=== PATIENT | male | born 1945 | race Caucasian/White ===

== ENCOUNTER 2024-01-02 14:53 | Emergency (ER) | payer MEDICARE, OTHER, SELFPAY ==
[2024-01-02 15:04] VITALS: BP 122/77; PULSE 77; TEMP 36.7; O2SAT 98; BMI 22.8
--- NOTE | 2024-01-02 15:08 | XR_ITS ---
[address] [address] Patient Name: THONY BRYANT MRN: [id number] date: 1945 Sex: M Assigned Patient Location: ER Current Patient Location: ER Accession/Order Number: [id number] Exam Date: 01/02/2024 15:37 Report Date: 01/02/2024 16:10 At the request of: ANTOINETTE PAUL Procedure: XR shoulder RT min 2V IMAGES REVIEWED: XR shoulder RT min 2V COMPARISON: None available. CLINICAL INDICATION: pain FINDINGS/IMPRESSION: No radiographic evidence of acute osseous abnormality of the right shoulder. Mild-moderate degenerative change. Electronically authenticated by: KAILA HERNANDEZ Date: 01/02/2024 16:10
--- NOTE | 2024-01-02 16:23 | ED.UPPEXIN1 ---
Documented by User: Cat Arriagaey 01/02/24 16:31 HPI HPI - Extremity Injury (Upper) General Chief Complaint: Extremity Injury, Upper Stated Complaint: FELL RIGHT SHOULDER PAIN Time Seen by Provider: 01/02/24 15:02 Source: patient and family Mode of arrival: walk-in Limitations: no limitations History of Present Illness HPI narrative: 78-year-old male presents with chief complaint of right shoulder injury. Patient tripped at home. pt has a history of Parkinson's disease and trips frequently. He denies any other injuries or pain. He has no headache or neck pain.Side and states that he laid on the floor until his son came to the room to pick him up. Patient is alert and oriented. He complains only of right shoulder pain. Difficulty moving his shoulder. There is no obvious Patient. Suspected rotator cuff or sprain noted. Extremities neurovascular intact Related Data Home Medications ?Medication ?Instructions ?Recorded ?Confirmed amantadine HCl 100 mg tablet 100 mg PO BID 01/02/24 01/02/24 atorvastatin 40 mg tablet 40 mg PO DAILY 01/02/24 01/02/24 carbidopa ER 50 mg-levodopa 200 mg 1.5 tab PO BID 01/02/24 01/02/24 tablet,extended release selegiline HCl 5 mg tablet 5 mg PO BID 01/02/24 01/02/24 Allergies Allergy/AdvReac Type Severity Reaction Status Date / Time No Known Drug Allergies Allergy Verified 01/02/24 15:04 Opioid HPI Opioid Management Most Recent Pain and Opioid Data: No Data to Display Review of Systems ROS Narrative All Systems are negative except as noted/marked.All systems reviewed and otherwise negative Exam Narrative Exam Narrative: All Systems are negative except as noted/marked.All systems reviewed and otherwise negative Nurses note and vital signs reviewed and patient is not hypoxic. General: The patient appears well and in no apparent distress. Patient is resting comfortably on cart. Skin: Warm, dry, no pallor noted. There is no rash noted. Head: Normocephalic, atraumatic Eye: Normal conjunctiva, no drainage, EOMI. PERRL Ears, Nose, Mouth, and Throat: oral mucosa is moist. Nares patent. Mouth without vesicles. Ear canals patent. Tm's without Erythema Cardiovascular: Regular Rate and Rhythm Musculoskeletal right shoulder tenderness with abrasion to the lateral aspect of humerus . Inability elevating or rotating due to pain. No obvious dislocation. Extremities neurovascular intact. remainder of extremities show no injury, pt able to ambulate Neurological: A&O x4, normal speech Psychiatric: Cooperative Constitutional Vital Signs, click to edit/add: Last Vital Signs Temp 98.1 F 01/02/24 15:04 Pulse 78 01/02/24 16:34 Resp 18 01/02/24 16:34 BP 126/77 01/02/24 16:34 Pulse Ox 98 01/02/24 16:34 O2 Del Method Room Air 01/02/24 15:04 Course Vital Signs Vital signs: Vital Signs Temperature 98.1 F 01/02/24 15:04 Pulse Rate 77 01/02/24 15:04 Respiratory Rate 18 01/02/24 15:04 Blood Pressure 122/77 01/02/24 15:04 Pulse Oximetry 98 01/02/24 15:04 Oxygen Delivery Method Room Air 01/02/24 15:04 Temperature 98.1 F 01/02/24 15:04 Pulse Rate 78 01/02/24 16:34 Respiratory Rate 18 01/02/24 16:34 Blood Pressure 126/77 01/02/24 16:34 Pulse Oximetry 98 01/02/24 16:34 Oxygen Delivery Method Room Air 01/02/24 15:04 MDM - Extremity Injury (Upper) MDM Narrative Medical decision making narrative: 78-year-old male presents with chief complaint of shoulder injury. He tripped while in his home today. He trips often due to a history of Parkinson's disease. Injury was not witnessed but son was there to pick him up. Patient has right shoulder injury x-ray showed negative. Right sling was placed on the shoulder. Patient will follow-up with Dr. davey office on Thursday. Patient denied the need for pain medication. at bedside and agrees with plan of care Differential Diagnosis Differential diagnosis: Likely fracture of wrist and fracture of humerus Medical Records Attestation: I reviewed the patient's medical records. Imaging Data shoulder: Attestation: I have reviewed the pertinent imaging results. Radiologist's impression: : None available. CLINICAL INDICATION: pain FINDINGS/IMPRESSION: No radiographic evidence of acute osseous abnormality of the right shoulder. Mild-moderate degenerative change. Electronically authenticated by: KAILA HERNANDEZ Date: 01/02/2024 16:10 Discharge Plan Discharge Stand Alone Forms: Portal Instructions Chief Complaint: Extremity Injury, Upper Clinical Impression: Shoulder sprain Patient Disposition: Home, Self-Care Time of Disposition Decision: 16:21 Condition: Good Prescriptions / Home Meds: No Action amantadine HCl 100 mg tablet 100 mg PO BID atorvastatin 40 mg tablet 40 mg PO DAILY carbidopa-levodopa 50-200 mg tablet extended release 1.5 tab PO BID selegiline HCl 5 mg tablet 5 mg PO BID Print Language: Kyrgyz Instructions: Shoulder Sprain (ED), P.R.I.C.E. Treatment (ED) Referrals: GAMAL REYES [Primary Care Provider] - 1 week David Howard MD [Physician] - 1 week Discharge Date/Time: 01/02/24 16:35 Documented by User: Jabier Wiggins MD 01/02/24 21:23 HPI HPI - Extremity Injury (Upper) General Chief Complaint: Extremity Injury, Upper Stated Complaint: FELL RIGHT SHOULDER PAIN Time Seen by Provider: 01/02/24 15:02 Related Data Home Medications ?Medication ?Instructions ?Recorded ?Confirmed amantadine HCl 100 mg tablet 100 mg PO BID 01/02/24 01/02/24 atorvastatin 40 mg tablet 40 mg PO DAILY 01/02/24 01/02/24 carbidopa ER 50 mg-levodopa 200 mg 1.5 tab PO BID 01/02/24 01/02/24 tablet,extended release selegiline HCl 5 mg tablet 5 mg PO BID 01/02/24 01/02/24 Allergies Allergy/AdvReac Type Severity Reaction Status Date / Time No Known Drug Allergies Allergy Verified 01/02/24 15:04 Opioid HPI Opioid Management Most Recent Pain and Opioid Data: No Data to Display Exam Constitutional Vital Signs, click to edit/add: Last Vital Signs Temp 98.1 F 01/02/24 15:04 Pulse 78 01/02/24 16:34 Resp 18 01/02/24 16:34 BP 126/77 01/02/24 16:34 Pulse Ox 98 01/02/24 16:34 O2 Del Method Room Air 01/02/24 15:04 Course Vital Signs Vital signs: Vital Signs Temperature 98.1 F 01/02/24 15:04 Pulse Rate 77 01/02/24 15:04 Respiratory Rate 18 01/02/24 15:04 Blood Pressure 122/77 01/02/24 15:04 Pulse Oximetry 98 01/02/24 15:04 Oxygen Delivery Method Room Air 01/02/24 15:04 Temperature 98.1 F 01/02/24 15:04 Pulse Rate 78 01/02/24 16:34 Respiratory Rate 18 01/02/24 16:34 Blood Pressure 126/77 01/02/24 16:34 Pulse Oximetry 98 01/02/24 16:34 Oxygen Delivery Method Room Air 01/02/24 15:04 MDM - Extremity Injury (Upper) MDM Narrative Medical decision making narrative: 78-year-old male presents with chief complaint of shoulder injury. He tripped while in his home today. He trips often due to a history of Parkinson's disease. Injury was not witnessed but son was there to pick him up. Patient has right shoulder injury x-ray showed negative. Right sling was placed on the shoulder. Patient will follow-up with Dr. davey office on Thursday. Patient denied the need for pain medication. at bedside and agrees with plan of care I, Dr Wiggins, have reviewed the above progress note and course of action in the ER; agree with the above. I have gone over history and physical, and discussed disposition and treatment plan with the patient. Discharge Plan Discharge Stand Alone Forms: Portal Instructions Chief Complaint: Extremity Injury, Upper Clinical Impression: Shoulder sprain Patient Disposition: Home, Self-Care Time of Disposition Decision: 16:21 Condition: Good Prescriptions / Home Meds: No Action amantadine HCl 100 mg tablet 100 mg PO BID atorvastatin 40 mg tablet 40 mg PO DAILY carbidopa-levodopa 50-200 mg tablet extended release 1.5 tab PO BID selegiline HCl 5 mg tablet 5 mg PO BID Print Language: Kyrgyz Instructions: Shoulder Sprain (ED), P.R.I.C.E. Treatment (ED) Referrals: GAMAL REYES [Primary Care Provider] - 1 week David Howard MD [Physician] - 1 week Discharge Date/Time: 01/02/24 16:35
[2024-01-02 16:34] VITALS: BP 126/77; PULSE 78; O2SAT 98
== END 2024-01-02 16:35 | disposition home or self-care (01) ==
PROVIDERS: Emergency Provider Emergency Medicine; PCP Family Medicine
DX: S43.401A Unspecified sprain of right shoulder joint, initial encounter (principal); G20.A1 Parkinson's disease without dyskinesia, without mention of fluctuations; Z79.899 Other long term (current) drug therapy; W10.9XXA Fall (on) (from) unspecified stairs and steps, initial encounter
CPT/HCPCS: 73030; 99283

== ENCOUNTER 2024-01-22 11:34 | Outpatient (OUT) | payer OTHER, SELFPAY ==
[2024-01-22 12:09] LABS: Erythrocyte Sedimentation Rate 27 mm/hr (<=20)
[2024-01-22 12:25] LABS: Thyroid Stimulating Hormone 2.395 uIU/mL (0.358-3.740)
[2024-01-22 15:12] LABS: C. Difficile PCR NEGATIVE (NEGATIVE)
[2024-01-23 06:09] LABS: HIV Ab/p24 Ag Screen Non Reactive (Non Reactive)
[2024-01-25 15:31] LABS: Deamidated Gliadin Abs, IgA 4 units (0-19); Deamidated Gliadin Abs, IgG 2 units (0-19); Endomysial Antibody IgA Negative (Negative); Immunoglobulin A, Qn, Serum 208 mg/dL (61-437); t-Transglutaminase (tTG) IgA <2 U/mL (0-3); t-Transglutaminase (tTG) IgG <2 U/mL (0-5)
[2024-01-26 17:11] LABS: Ova + Parasite Exam Final report (.)
== END 2024-01-22 11:35 | disposition home or self-care (01) ==
LOC: LAB 11:35
PROVIDERS: PCP Family Medicine; Visit Provider Internal Medicine
DX: R63.4 Abnormal weight loss (principal); K92.1 Melena; R19.7 Diarrhea, unspecified
CPT/HCPCS: 36415; 82656; 82784; 83993; 84443; 85652; 86231; 86258; 86364; 87045; 87046; 87177; 87209; 87389; 87427; 87493

== ENCOUNTER 2024-01-23 08:46 | Outpatient (OUT) | payer OTHER, SELFPAY ==
--- NOTE | 2024-01-23 | CT_ITS ---
[address] [address] Patient Name: THONY BRYANT MRN: [id number] date: 1945 Sex: M Assigned Patient Location: LAB Current Patient Location: Accession/Order Number: [id number] Exam Date: 01/23/2024 10:27 Report Date: 01/24/2024 09:49 At the request of: SIDRA LEON Procedure: CT abdomen pelvis w con CT ABDOMEN AND PELVIS WITH CONTRAST: INDICATION: Weight Loss. Gastroenteritis K92.1 R63.4 K52.9. COMPARISON: None. TECHNIQUE: Helical CT images of the abdomen and pelvis were obtained after the administration of intravenous contrast. Dose reduction techniques were achieved by using automated exposure control and/or adjustment of mA and/or kV according to patient size and/or use of iterative reconstruction technique. FINDINGS: LOWER CHEST: The visualized lung bases are clear. Small hiatal hernia with contrast in the distal esophagus suggesting gastroesophageal reflux. LIVER: There is mild diffuse fatty infiltration of the liver. GALLBLADDER AND BILIARY SYSTEM: The gallbladder is contracted. There is no intra or extrahepatic biliary ductal dilatation. SPLEEN: Unremarkable. PANCREAS: Unremarkable. ADRENAL GLANDS: Unremarkable. KIDNEYS AND URETERS: The kidneys enhance symmetrically. There is no hydronephrosis. Punctate nonobstructing calculus in the upper pole the right kidney. No ureteral calculus or perinephric stranding. BLADDER: Under distended, but grossly unremarkable. GASTROINTESTINAL TRACT: Moderate to large amount of stool in the colon. No evidence of bowel obstruction. Normal appendix. VASCULATURE: Atherosclerotic calcification of the abdominal aorta without aneurysmal dilatation. RETROPERITONEUM AND LYMPH NODES: No lymphadenopathy or mass. PERITONEUM/MESENTERY: No abdominal ascites. No free air. PELVIS: No pelvic ascites or lymphadenopathy. The prostate is enlarged. Small fat-containing left inguinal hernia. BODY WALL: Unremarkable. BONES: Multilevel degenerative changes of the lumbar spine. Grade 1 anterolisthesis of L4 and L5 as well as L3 on L4. There is a sclerotic lesion in the L2 vertebral body measuring 1.6 cm which is indeterminate. CT/CT abdomen pelvis w con IMPRESSION: 1. Indeterminate 1.6 cm sclerotic lesion in the L2 vertebral body. Consider further evaluation with bone scan. 2. Constipation. 3. Gastroesophageal reflux. 4. Enlarged prostate. 5. Punctate nonobstructing calculus in the right kidney. 6. Fatty liver. Electronically authenticated by: CHRISTOPHER BENTLEY Date: 01/24/2024 09:49
--- OUTSIDE RECORDS SUMMARY | 2024-01-23 08:48 | XMS_ITS | CCD ---
Author Organization [facility] Care Team Providers Care Sink Maker Name Role Phone ESHA ZEPEDA Admitting Unavailable CHASIDYS, ESHA Attending Unavailable LUANNILLIS, ESHA Consulting Unavailable HOUSE, ESA Primary Care Unavailable NIKI, ERASTO Consulting Unavailable HOUSE, ESA Primary Care Unavailable HAY, YINKA Admitting Unavailable HAY, YINKA Attending Unavailable LUCINA, DAVID Devries Consulting Unavailable HUMPHREY, TELMA Consulting Unavailable HOUSE, ESA Admitting Unavailable HOUSE, ESA Attending Unavailable HOUSE, ESA Primary Care Unavailable HOUSE, ESA Admitting Unavailable HOUSE, ESA Attending Unavailable Isaac Reyes Unavailable Unavailable Unavailable Mesha Joe Unavailable Dr. Mata Barrientos Attending Daina vailable Iliana, Dr. Mata Joshi Referring Daina vailable Isaac Reyes Primary Care UnavailIsaac Rodríguez MD Primary Care Provider MATA BARRIENTOS Attending Unavailable ISAAC REYES Primary Care UnavailIsaac Rodríguez MD Primary Care Provider COLLIN HENRY Attending Unavailable MICHELLE TO Referring Unavailable ISAAC REYES Attending Unavailable ISAAC REYES Attending Unavailable ISAAC REYES Attending Unavailable Medications Current Medications Medication Drug Class(es) Dates Sig (Normalized) Sig (Original) amantadine hydrochloride 100 mg oral tablet (10 sources) Influenza A M2 Protein Inhibitor Start: 02-09-2023 take 1.5 tablets by mouth in the morning amantadine (Symmetrel) 100 MG tablet Indications: Parkinson's disease 1.5 tablets orally upon arising in the AM and then again in 6 to 8 hours 180 tablet 1 02/09/2023 Active Start: 02-09-2023 take 1 tablet by isela twice daily amantadine (Symmetrel) 100 mg tablet Take 1 tablet (100 mg) by mouth 2 times a day. 0 02/09/2023 Active take 1 tablet by isela twice daily Amantadine HCl - 100 MG Oral Tablet Take 1 tablet twice daily Quantity: 0 Refills: 0 Ordered: 23-Jul-2022 DO Active take 1 tablet by isela once daily Amantadine HCl - 100 MG Oral Tablet Take 1 tablet daily Quantity: 0 Refills: 0 Ordered: 24-Jul-2021 DO Active amoxicillin 875 mg / clavulanate 125 mg oral tablet (1 source) Penicillin-class Antibacterial Start: 05-02-2022 take 1 tablet by mouth every twelve hours Amoxicillin-Pot Clavulanate 875-125 MG 1 tablet Orally every 12 hrs for 10 day(s) Apr, Active aspirin 81 mg delayed release oral tablet (10 sources) Platelet Aggregation Inhibitor, Nonsteroidal Anti-inflammatory Drug take 1 tablet by mouth every week aspirin 81 MG EC tablet Take 81 mg by mouth. 1 tablet orally once a week for 30 days 0 Active take 1 tablet by mouth once chalo y aspirin 81 mg EC tablet Take 1 tablet (81 mg) by mouth once daily. 0 Active Aspirin EC 81 MG Oral Tablet Delayed Release 1 tablet on Thursday Quantity: 12 Refills: 3 Ordered: 23-Jul-2022 Mata Barrientos MD Active take 1 tablet by mouth every wee k Aspirin 81 81 MG 1 tablet Orally once a week Active atorvastatin 40 mg oral tablet (11 sources) HMG-CoA Reductase Inhibitor Start: 03-17-2019 End: 07-13-2024 take 1 tablet by mouth once daily atorvastatin (Lipitor) 40 mg tablet Indications: Atherosclerosis of apache coronary artery of apache heart without angina pectoris , Hyperlipidemia, unspecified hyperlipidemia type Take 1 tablet (40 mg) by mouth once daily. 90 tablet 3 07/14/2023 07/13/2024 Active carbidopa 50 mg / levodopa 200 mg extended release oral tablet (7 sources) Aromatic Amino Acid Decarboxylation Inhibitor, Aromatic Amino Acid Start: 08-24-2023 carbidopa-levodopa CR (Sinemet CR) 50-200 MG ER tablet Indications: Parkinson's disease 1.5 tablets orally upon arising in the AM and then again in 6 to 8 hours 270 tablet 1 08/24/2023 Active Start: 12-18-2018 End: 07-14-2023 take 1 tablet by mouth once daily carbidopa-levodopa (Sinemet) 25-100 mg tablet Take 1 tablet by mouth once daily. 0 12/18/2018 07/14/2023 Discontinued (Other) take 1 tablet by isela th twice daily carbidopa-levodopa (Sinemet CR) 50-200 mg ER tablet Take 1 tablet by mouth 2 times a day. Do not crush or chew. 0 Active docusate sodium 100 mg oral tablet (3 sources) take 1 tablet by isela th twice daily docusate sodium (Stool Softener) 100 mg tablet Take 1 tablet (100 mg) by mouth 2 times a day. 0 Active take 1 tablet by mouth once chalo y Stool Softener 100 MG Oral Tablet TAKE 1 TABLET DAILY DIRECTED. Quantity: 0 Refills: 0 Ordered: 23-Jul-2022 DO Active take 1 capsule by mo [facility] every twenty-four hours Colace 100 MG 1 capsule as needed Orally Once a day Active ibuprofen 200 mg oral capsule (5 sources) Nonsteroidal Anti-inflammatory Drug ibuprofen (Advil Liqui-GeL) capsule Take by mouth once daily. 0 Active Advil CAPS as ne eded Quantity: 0 Refills: 0 Ordered: 24-Jul-2021 DO Active meclizine hydrochloride 25 mg oral tablet (4 sources) Antiemetic Start: 09-04-2022 take 0.5-1 tablets by mouth four times daily as needed meclizine (Antivert) 25 MG tablet Take 25 mg by mouth 3 (three) times a day as needed for dizziness. 0.5-1 orally four time daily for 10 days 0 09/04/2022 Active nitroglycerin 0.4 mg sublingual tablet (10 sources) Nitrate Vasodilator Start: 07-23-2022 End: 07-13-2024 nitroglycerin (Nitrostat) 0.[address] 0.4 mg under the tongue if needed for chest pain. 0 07/23/2022 Active sennosides, fci 25 mg oral tablet (2 sources) take 1 tablet by mouth three times daily sennosides (Laxative Maximum Strength) 25 mg tablet Take 1 tablet (25 mg) by mouth 3 times a day. 0 Active take 2 tablets by mo ut every twenty-four hours Senna 8.6 MG 2 tablets at bedtime as needed Orally Once a day Active tamsulosin hydrochloride 0.4 mg oral capsule (8 sources) alpha-Adrenergic Nina take 1 capsule by mouth once daily tamsulosin (Flomax) 0.4 MG 24 hr capsule Take 0.4 mg by mouth 1 (one) time each day. 0 Active tetrahydrozoline hydrochloride 0.5 mg/ml ophthalmic solution (2 sources) take 1 drop(s) into the eye(s) once daily tetrahydrozoline 0.05 % ophthalmic solution Administer 1 drop into both eyes once daily. 0 Active Completed/Discontinued Medications Medication Drug Class(es) Dates Sig (Normalized) Sig (Original) Laxative TABS (1 source) Laxative TABS 3 times weekly Quantity: 0 Refills: 0 Ordered: 23-Jul-2022 DO Active selegiline hydrochloride 5 mg oral tablet (5 sources) Monoamine Oxidase Inhibitor, Monoamine Oxidase Type B Inhibitor Start: 09-16-2023 End: 01-19-2024 take 1 tablet by mouth in the morning selegiline (Eldepryl) 5 MG tablet Indications: Parkinson's disease with dyskinesia and fluctuating manifestations Take 1 tablet (5 mg) by mouth in the morning and 1 tablet (5 mg) in the evening. Take with meals. 60 tablet 0 09/16/2023 10/21/2023 Discontinued (Reorder) Problems Active Problems Problem Classification Problem Date Documented Da te Episodic/Chronic Cataract (4 sources) Artificial lens present; Translations: [Presence of intraocular lens] Onset: 3 02-09-2023 Chronic Chronic kidney disease (4 sources) Chronic kidney disease stage 3A ; Translations: [Chronic kidney disease, stage 3a (HCC)] Onset: 3 10-03-2023 Chronic Chronic obstructive pulmonary disease and bronchiectasis (4 sources) Simple chronic bronchitis; Translations: [Simple chronic bronchitis] Onset: 3 02-09-2023 Chronic Coronary atherosclerosis and other heart disease (13 sources) Atherosclerotic heart disease of apache coronary artery without angina pectoris; Translations: [Coronary atherosclerosis] Onset: 9 07-14-2023 Chronic Delirium, dementia, and amnestic and other cognitive disorders (5 sources) Primary degenerative dementia of the Alzheimer type, presenile onset, uncomplicated; Translations: [Alzheimer's disease] Onset: 3 07-13-2023 Chronic Disorders of lipid metabolism (13 sources) Hyperlipidemia, unspecified; Translations: [Hyperlipidemia] Onset: 9 07-14-2023 Chronic Gastrointestinal hemorrhage (2 sources) Gastrointestinal hemorrhage; Translations: [Hemorrhage of anus and rectum] 10-22-2023 Episodic Hyperplasia of prostate (4 sources) Benign prostatic hyperplasia; Translations: [Benign prostatic hyperplasia with lower urinary tract symptoms] Onset: 3 02-09-2023 Chronic Joint disorders and dislocations; trauma-related (1 source) Other disorders of patella, right knee; Translations: [OTHER DISORDERS PATELLA RIGHT KNEE] Onset: 9 Chronic Other aftercare (1 source) senior living (current) use of aspirin; Translations: [[facility] CURRENT USE OF ASPIRIN] Onset: 9 Episodic Other eye disorders (4 sources) Senile entropion of right eyelid; Translations: [Senile entropion of right eye, unspecified eyelid] Onset: 4 09-08-2023 Episodic Other gastrointestinal disorders (6 sources) Chronic constipation; Translations: [Other constipation] Onset: 3 02-09-2023 Episodic Other hereditary and degenerative nervous system conditions (9 sources) Essential tremor; Translations: [Essential and other specified forms of tremor] Onset: 3 07-13-2023 Chronic Other lower respiratory disease (1 source) Shortness of breath; Translations: [SHORTNESS OF BREATH] Onset: 9 Episodic Other male genital disorders (4 sources) Male erectile dysfunction, unspecified; Translations: [Impotence of organic origin] Onset: 3 02-09-2023 Chronic Other non-traumatic joint disorders (4 sources) Pain in right hip; Translations: [PAIN IN RIGHT HIP] Onset: 9 Episodic Other nutritional; endocrine; and metabolic disorders (4 sources) Overweight in adulthood with body mass index of 25 or more but less than 30; Translations: [Overweight] Episodic Residual codes; unclassified (4 sources) Active advance directive (copy within chart) ; Translations: [Other specified health status] Onset: 4 09-29-2023 Episodic Screening and history of mental health and substance abuse codes (1 source) Ex-smoker; Translations: [Personal history of tobacco use] Episodic Comment on above: quit 1971 1 pack per week x 5 years; Spondylosis; intervertebral disc disorders; other back problems (4 sources) Unspecified thoracic, thoracolumbar and lumbosacral intervertebral disc disorder; Translations: [UNS THORACIC TL AND LS IV DISC D/O] Onset: 9 Chronic Spondylosis; intervertebral disc disorders; other back problems (1 source) Lumbago with sciatica, right side; Translations: [LUMBAGO WITH SCIATICA RIGHT SIDE] Onset: 9 Episodic Unclassified (7 sources) Parkinson's disease; Translations: [Parkinson's disease] Onset: 3 02-09-2023 Chronic Past or Other Problems Problem Classification Problem Date Documented Da te Episodic/Chronic Coronary atherosclerosis and other heart disease (13 sources) Presence of coronary angioplasty implant and graft; Translations: [Past history of procedure] Onset: 07-12-2019 07-14-2023 Episodic Comment on above: LAD/RCA 2009; E Codes: Natural/environment (1 source) Bitten by cat, initial encounter Onset: 05-02-2022 Resolved: 05-02-2022 Episodic Genitourinary symptoms and ill-defined conditions (4 sources) Increased frequency of urination; Translations: [Frequency of micturition] Onset: 02-09-2023 02-09-2023 Episodic Mood disorders (4 sources) Mood disorders Onset: 09-24-2023 09-24-2023 Other and unspecified benign neoplasm (1 source) Personal history of colonic polyps; Translations: [PERSONAL HISTORY OF COLONIC POLYPS] Onset: 05-04-2019 Episodic Other gastrointestinal disorders (4 sources) Diarrhea, unspecified; Translations: [DIARRHEA UNSPECIFIED] Onset: 04-27-2019 Episodic Residual codes; unclassified (1 source) Family history of malignant neoplasm of digestive organs; Translations: [FAM HX MALIG NEOPLASM DIGESTIV ORGN] Onset: 05-04-2019 Episodic Unclassified (1 source) Onset: 07-14-2023 07-14-2023 Results Test Name Value Interpretation Reference Range Facil ity Office Visit (Cardiology)on 07-23-2022 Follow-up visit Diagnoses/Problems Assessed Atherosclerosis of apache coronary artery of apache heart without angina pectoris (414.01) (I25.10) S/P coronary angioplasty (V45.82) (Z98.61) LAD/RCA 2009 Essential tremor (333.1) (G25.0) Hyperlipidemia (272.4) (E78.5) Former smoker (V15.82) (Z87.891) quit 1970 1 pack per week x 5 years Overweight with body mass index (BMI) of 25 to 25.9 in adult (278.02,V85.21) (E66.3,Z68.25) Orders Atherosclerosis of apache coronary artery of apache heart without angina pectoris Renew: Aspirin EC 81 MG Oral Tablet Delayed Release; 1 tablet on Thursday Renew: Nitroglycerin 0.4 MG Sublingual Tablet Sublingual; PLACE 1 TABLET UNDER THE TONGUE EVERY 5 MINUTES FOR UP TO 3 DOSES NEEDED FOR CHEST PAIN.CALL 911 IF PAIN PERSISTS Atherosclerosis of apache coronary artery of apache heart without angina pectoris, Hyperlipidemia Renew: Atorvastatin Calcium 40 MG Oral Tablet; TAKE 1 TABLET DAILY Atherosclerosis of apache coronary artery of apache heart without angina pectoris, Hyperlipidemia, S/P coronary angioplasty ALT - Alanine Aminotransferase, Serum; Status:Active - Retrospective Authorization; Requested for:[id number]; AST; Status:Active - Retrospective Authorization; Requested for:23Jul2023; Basic Metabolic Panel; Status:Active - Retrospective Authorization; Requested for:23Jul2023; Complete Blood Count; Status:Active - Retrospective Authorization; Requested for:[id number]; Lipid Panel; Status:Active - Retrospective Authorization; Requested for:[id number]; Overweight with body mass index (BMI) of 25 to 25.9 in adult Healthy Weight Tips; Status:Complete - Retrospective Authorization; Done: [id number] SocHx: Former smoker Tobacco Use Screening; Status:Complete; Done: [id number] Tobacco Use Screening; Status:Complete; Done: [id number] Patient Instructions Please bring all medicines, vitamins, and herbal supplements with you when you come to the office. Prescriptions will not be filled unless you are compliant with your follow up appointments or have a follow up appointment scheduled as per instruction of your physician. Refills should be requested at the time of your visit. Fall Prevention Education Given recent lab reviewed with pt/spouse Follow up in 1 year Chief Complaint THONY BRYANT is being seen for an annual follow-up of. Patient is in the office with his for follow-up for the problems noted below. Since his last visit he has had no cardiac events whatsoever. There is no angina palpitations dyspnea he is on minimal medications for his CAD which has been well-tolerated and sufficient. We have followed his lab periodically and his numbers look good. Examination today was unremarkable except for slight overweight. ASSESSMENT AND PLAN: 1. Coronary artery disease status post percutaneous coronary intervention of the LAD and the right coronary artery in 2009 with no indication of recurrent disease and with controlled risk factors. His last stress test was normal in 2010. Currently there is no indication for cardiac investigations 2. Hyperlipidemia, on medical therapy with statin under excellent control 3. Slight overweight. However, this is not a major concern given the close readings to the ideal BMI. 4. tremor being treated by Neurology using amantadine with success. 5. Dementia that is stable and not disturbing. Mata Barrientos MD, [facility] Surgical History Problems History of Cataract surgery History of Complete colonoscopy [id number] History of Tonsillectomy History of Tooth extraction Current Meds Medication NameInstruction Advil CAPSas needed Amantadine HCl - 100 MG Oral TabletTake 1 tablet twice daily Aspirin EC 81 MG Oral Tablet Delayed Release1 tablet on Thursday Atorvastatin Calcium 40 MG Oral TabletTAKE 1 TABLET DAILY. Carbidopa-Levodopa 25-100 MG Oral TabletTake 1 tablet daily Eye Drops 0.05 % Ophthalmic SolutionINSTILL 1 DROP INTO BOTH EYES ONCE DAILY. Laxative TABS3 times weekly Nitroglycerin 0.4 [address] 1 TABLET UNDER THE TONGUE EVERY 5 MINUTES FOR UP TO 3 DOSES NEEDED FOR CHEST PAIN.CALL 911 IF PAIN PERSISTS. Stool Softener 100 MG Oral TabletTAKE 1 TABLET DAILY DIRECTED. Allergies Medication No Known Drug Allergies Recorded By: Ellen Grady; 07/18/2021 8:44:59 AM Social History Problems Denied: History of Caffeine use Coke occasionally Former smoker (V15.82) (Z87.881) quit 1970 1 pack per week x 5 years No alcohol use No illicit drug use Review of Systems Constitutional: not feeling tired. Cardiovascular: no intermittent leg claudication and as noted in HPI. Respiratory: no cough and no shortness of breath. Gastrointestinal: no change in bowel habits and no blood in stools. Integumentary: no skin rashes. Neurological: dizziness, but no seizures and no frequent falls. All other systems have been reviewed and are negative for complaint. Vitals Vital Signs Recorde (more content not included)... Normal [facility] Tobacco Screening.on 022 Adult depression screening assessment No [facility] 250 DO Work Phone: Fall risk assessment b) One or more falls in the last year [facility] 250 DO Work Phone: Tobacco use status CP b) No [facility] 250 DO Work Phone: Tobacco Screening.on 021 Fall risk assessment a) No falls within the last year [facility] 250 DO Work Phone: Tobacco use status [facility] b) No [facility] 250 DO Work Phone: XR L-SPINE 2 - 3 VIEWSon XR L-SPINE 2 - 3 VIEWS Patient: THONY BRYANT Exam Date: 07/09/2019 : 1945 Gender:M Ordering : TELMA VINCENT Admission #: [id number] Family : DR YINKA MAN . Order #: [id number] CLICK HERE TO VIEW EXAM RADIOLOGY REPORT PROCEDURE: RADIOGRAPH L-SPINE 2-3 VIEWS COMPARISON: None. INDICATIONS: Acute lumbar pain radiating into right leg after injury FINDINGS: BONES: Mild left convex curvature of the lumbar spine. Minimal grade 1 anterior listhesis of L4 on 5. Moderate facet arthropathy of L3-4 through L5-S1. Mild-moderate compression fracture of T11. DISC SPACES: Marked narrowing L4-5. Mild-moderate narrowing L3-4 and L5-S1. PARASPINOUS: Negative. No paraspinous abnormality is seen. OTHER: Negative. CONCLUSION: 1. Age indeterminate mild-moderate compression fracture of T11, but favoring subacute to chronic. No comparison studies. 2. Multilevel degenerative disc disease and facet arthropathy, marked at L4-5. Dictated by: David Yates M.D. on 07/09/2019 at 20:28 Approved by: David Yates M.D. on 07/09/2019 at 20:30 Normal [facility] Vital Signs Date Time Vital Sign Value Performing Clinician Facility 10-19-2023 16:06-0500 Body height 170.2 cm Isaac Reyes MD Work Phone: [facility] 10-19-2023 16:06-0500 Body mass index (BMI) [Ratio] 23.96 kg/m2 Isaac Reyes MD Work Phone: [facility] 10-19-2023 16:06-0500 Body weight 69.4 kg Isaac Reyes MD Work Phone: [facility] 07-14-2023 11:09-0500 Diastolic blood pressure 75 mm[Hg] Mata Barrientos MD Work Phone: [facility] 07-14-2023 11:09-0500 Systolic blood pressure 118 mm[Hg] Mata Barrientos MD Work Phone: [facility] 07-14-2023 10:45-0500 Body height 170.2 cm Mata Barrientos MD Work Phone: [facility] 07-14-2023 10:45-0500 Body mass index (BMI) [Ratio] 23.96 kg/m2 Mata Barrientos MD Work Phone: [facility] 07-14-2023 10:45-0500 Body weight 69.4 kg Mata Barrientos MD Work Phone: [facility] 07-14-2023 10:45-0500 Heart rate 88 /min Mata Barrientos MD Work Phone: [facility] 07-23-2022 10:44-0500 Body height 167.64 cm Isaac Reyes Work Phone: [facility] 250 DO Work Phone: 07-23-2022 10:44-0500 Body mass index (BMI) [Ratio] 25.02 kg/m2 Isaac Reyes Work Phone: [facility] 250 DO Work Phone: 07-23-2022 10:44-0500 Body surface area Derived from formula 1.79 m2 Naintwin Reyes Work Phone: [facility] 250 DO Work Phone: 07-23-2022 10:44-0500 Body weight 70.31 kg Naintwin Romanoyer Work Phone: [facility] 250 DO Work Phone: 07-23-2022 10:44-0500 Diastolic blood pressure 64 mm[Hg] Isaac Vidal Juan Antonioyer Work Phone: [facility] 250 DO Work Phone: 07-23-2022 10:44-0500 Heart rate 88 /min Naintwin Young Juan Antonioyer Work Phone: [facility] 250 DO Work Phone: 07-23-2022 10:44-0500 Systolic blood pressure 104 mm[Hg] Naintwin Romanoyer Work Phone: [facility] 250 DO Work Phone: 07-17-2022 16:23-0500 61 1 Isaac Reyes Work Phone: [facility] 250 DO Work Phone: Comment on above: [facility] 05-02-2022 15:35-0400 Body height 167.64 cm Mesha Joe Other [facility] Other 05-02-2022 15:35-0400 Body mass index (BMI) [Ratio] 25.69 kg/m2 Mesha Joe Other [facility] Other 05-02-2022 15:35-0400 Body temperature 98.1 [degF] Mesha Joe Other [facility] Other 05-02-2022 15:35-0400 Body weight 72.21 kg Mesha Joe Other [facility] Other 05-02-2022 15:35-0400 Diastolic blood pressure 64 mm[Hg] Mesha Joe Other [facility] Other 05-02-2022 15:35-0400 Respiratory rate 18 /min Mesha Joe Other [facility] Other 05-02-2022 15:35-0400 SaO2% (BldA) [Mass fraction] 98 % Mesha Joe Other [facility] Other 05-02-2022 15:35-0400 Systolic blood pressure 113 mm[Hg] Mesha Joe Other [facility] Other 07-24-2021 11:20-0500 Body height 167.64 cm Isaac Reyes Work Phone: [facility] 250 DO Work Phone: 07-24-2021 11:20-0500 Body mass index (BMI) [Ratio] 25.5 kg/m2 Isaac Reyes Work Phone: [facility] 250 DO Work Phone: 07-24-2021 11:20-0500 Body surface area Derived from formula 1.81 m2 Isaac Reyes Work Phone: [facility] 250 DO Work Phone: 07-24-2021 11:20-0500 Body weight 71.67 kg Isaac Reyes Work Phone: [facility] 250 DO Work Phone: 07-24-2021 11:20-0500 Diastolic blood pressure 79 mm[Hg] Isaac Reyes Work Phone: [facility] 250 DO Work Phone: 07-24-2021 11:20-0500 Heart rate 85 /min Isaac Reyes Work Phone: [facility] 250 DO Work Phone: 07-24-2021 11:20-0500 Systolic blood pressure 125 mm[Hg] Isaac Reyes Work Phone: [facility] 250 DO Work Phone: 07-08-2021 00:00-0400 59 1 Isaac Reyes Work Phone: [facility] 250 DO Work Phone: Comment on above: [facility] Encounters Encounter Date Encounter Type Care Provider Facility Start: 10-21-2023 Telephone encounter Rachael [facility] Comment on above: Care Coordination Start: 10-19-2023 End: 10-21-2023 ambulatory ISAAC REYES Not Available Start: 10-19-2023 End: 10-21-2023 Office outpatient visit 15 minutes Isaac Reyes MD Work Phone: [facility] Comment on above: Bright red rectal bl eeding (Primary Dx); Chronic constipation; Parkinson's disease without dyskinesia, unspecified whether manifestations fluctuate Start: 10-19-2023 Bamboo flowsheet Isaac kong MD Work Phone: [facility] Start: 10-19-2023 Bamboo flowsheet Isaac kong MD Work Phone: [facility] Start: 09-24-2023 End: 09-24-2023 ambulatory ISAAC REYES Not Available Start: 09-08-2023 End: 09-08-2023 ambulatory COLLIN D ZAHLER Not Available Start: 07-21-2023 End: 07-21-2023 ambulatory ISAAC REYES Not Available Start: 07-14-2023 End: 07-14-2023 ambulatory MATA Ramirez [facility] Ambulatory Start: 07-14-2023 End: 07-14-2023 Office outpatient visit 25 minutes Mata Barrientos MD Work Phone: [facility] Comment on above: Atherosclerosis of n ative coronary artery of apache heart without angina pectoris; S/P coronary angioplasty; Hyperlipidemia, unspecified hyperlipidemia type Start: 07-23-2022 Office outpatient vi sit 25 minutes Isaac Reyes Work Phone: [facility] 250 DO Work Phone: Start: 07-23-[address] Mata Elizabeth [place] [facility]: Start: 07-14-2022 Telephone encounter Isaac venegas Work Phone: [facility] 250 DO Work Phone: Start: 05-02-2022 End: 05-02-2022 ambulatory Mesha Joe Other [facility]erged With [facility] Other Start: 05-02-2022 Office outpatient ne w 20 minutes Mesha Joe [facility] Start: 07-30-2021 Rx Renewal Isaac Gordillo er Work Phone: [facility] 250A [place] Work Phone: Start: 07-24-2021 Patient encounter procedure Isaac Reyes Work Phone: [facility]Alex 250 DO Work Phone: Start: 09-07-2019 End: 10-06-2019 Patient encounter procedure ESA HUDSON Facility:H1 Start: 07-27-2019 End: 09-06-2019 Patient encounter procedure ESA HUDSON Facility: Start: 07-09-2019 End: 07-09-2019 Patient encounter procedure ESA HUDSON Facility: Start: 04-27-2019 End: 04-27-2019 Patient encounter procedure ESHA ZEPEDA Facility: Procedures Date Procedure Procedure Detail Performing Clinician Cataract surgery Isaac lopez Work Phone: Tonsillectomy Isaac sun Work Phone: Tooth extraction Isaac lopez Work Phone: Total colonoscopy Isaac Young Quesada theo Work Phone: Comment on above: [id number]; Plan of Treatment Date Care Activity Detail Author Start: 03-06-2024 Influenza vaccination Influenza Vacc ine (#1) [facility] Comment on above: Postponed from 05/08 (Patient Refused) Start: 12-09-2023 End: 12-09-2023 Patient encounter procedure 12/09/2023 11:30 AM EDT Office Visit [facility] [address] [place] [address] Isaac Reyes MD [address] [place] [address] [facility] Start: 07-14-2023 FUV, Provider: Mata Barrientos, Status: Pen, Time: 10:30 AM FUV, Provider: Mata Barrientos, Status: Pen, Time: 10:30 AM [facility] DO Work Phone: Start: 05-08-2023 Influenza vaccination Influenza Vacc ine (#1) [facility] Start: 07-23-2022 FUV, Provider: Mata Barrientos, Status: Pen, Time: 11:00 AM FUV, Provider: Mata Barrientos, Status: Pen, Time: 11:00 AM [facility] 250 DO Work Phone: Start: 09-16-2016 Pneumococcal Vaccine : 65+ Years (2 - PPSV23 or PCV20) Pneumococcal Vaccine: 65+ Years (2 - PPSV23 or PCV20) [facility] Start: 09-16-2016 Pneumococcal Vaccine : 65+ Years (2 of 2 - PPSV23 or PCV20) Pneumococcal Vaccine: 65+ Years (2 of 2 - PPSV23 or PCV20) [facility] Start: 1997 Zoster Vaccines (1 o f 2) Zoster Vaccines (1 of 2) [facility] Start: 1969 DTaP/Tdap/Td Vaccine s (1 - Tdap) DTaP/Tdap/Td Vaccines (1 - Tdap) [facility] Start: 1965 Hepatitis C [facility] Start: [facility] COVID-19 Vaccine (#1) COVID-19 Vacci ne (#1) [facility] Start: 1947 Lipid panel Lipid Panel [facility] Start: 1945 Yearly Adult Physical Yearly Adult P hysical [facility] Immunizations Immunization Date Immunization Notes Care Provider Jasmin souza 07-22-2016 pneumococcal conjuga te vaccine, 13 valent Isaac Romanoyer Work Phone: -[place] [address] DO Work Phone: Comment on above: Series: Payers Date Payer Category Payer Private Health Insurance [facility] [id number] 2023-Present [address] [address] [place] [address] [id number] 2020 Unknown 2018 Medicare [id number] 1959 Unknown [id number] 1947 Unknown [id number] .[id number] 1947 Unknown [id number] [id number] .2.593 1947 Unknown [id number] [id number] .2.593 1947 Unknown [id number] [id number] .2.593 1947 Unknown [id number] [id number] .2.356 1947 Unknown [id number] [id number] .2.1244 1947 Unknown [id number] [id number] .2.1259 1947 Unknown [id number] [id number] .2.1259 1947 Unknown [id number] [id number] .2.1259 1947 Unknown [id number] .2.1259 Medicare [id number] [id number] Unknown [id number] Social History Date Type Detail Facility Start: 07-13-2023 End: 09-24-2023 Rarely consumes alcohol Rarely consumes alcohol -[facility]-Cardale 250 DO Work Phone: Comment on above: quit 1971 1 pack per week x 5 years; Start: 07-13-2023 End: 09-24-2023 Sex Assigned At [facility]erged With [facility] Other Start: 07-13-2023 Tobacco smoking status NHIS Ex-smoker [facility] Work Phone: History of tobacco use Current smoker [facility] Work Phone: History of tobacco use Cigarette Smoker [facility] Work Phone: Start: 07-13-2023 End: 07-21-2023 Tobacco use and exposure Smokeless tobacco non-user [facility] Work Phone: Start: 07-14-2023 Alcohol intake Lifetime non-d schuyler (finding) [facility] Work Phone: Start: 1945 Sex Assigned At Not on file [facility] Work Phone: Start: 07-04-2023 End: 07-14-2023 Exposure to SARS-CoV-2 (event) Not sure [facility] Start: 07-21-2023 Tobacco smoking status NHIS Never smoked tobacco [facility] Start: 09-24-2023 End: 10-22-2023 Alcohol intake Ex-drinker (finding) [facility] NEGATED: Highlighted row Denies Caffeine use Denies Caffeine use -[facility] Heart-Alex 250 DO Work Phone: Comment on above: Coke occasionally; Clinical Notes 05-02-2022 to 10-21-2023 Telephone Encounter - Isaac Reyes MD - 10/21/2023 12:07 PM ESTTelephone Encounter - Isaac Reyes MD - 10/21/2023 12:07 PM ESTTelephone Encounter - Rachael Hernandez MA - 10/21/2023 11:09 AM EST Note Date & Type Note Facility 10-21-2023 Telephone encounter Note RX sent [facility] 10-21-2023 Miscellaneous Notes RX sent Juliana called and stated that when they got to talking about other things the other day at Ed's appointment, his script for Selegiline was missed. It goes to [facility] if its staying the same. documented in this encounter [facility] 10-21-2023 Telephone encounter Note Juliana called and stated that when they got to talking about other things the other day at Ed's appointment, his script for Selegiline was missed. It goes to [facility] if its staying the same. Rehab 10-19-2023 History of Presen t illness Narrative Patient ID: Thony Bryant is a 78 y.o. male who presents for: Blood in Stool Patient presents for presents evaluation of blood in stool/ rectal bleeding. Patient has associated symptoms of constipation. The patient denies abdominal pain and diarrhea. The patient has a known history of: no known risk factors. The patient has had 2 or 3 episodes of rectal bleeding. There is not a history of rectal injury. Patient has not had similar episodes of rectal bleeding in the past. He does state he has had blood on the toilet paper as well. He denies having any clots in the stool. Sometimes he has pain with the bowel movements and frequently this is associated with the blood. He has struggled with constipation for some time. He notes he has had a previously normal colonoscopy, I did review and this was in 2019. His also brought up that he is struggling more with the Parkinson's. It is affecting his daily activities more. Review of Systems Constitutional: Negative for chills and fever. Respiratory: Negative for cough, shortness of breath and wheezing. Cardiovascular: Negative for chest pain and palpitations. Gastrointestinal: Positive for constipation. Negative for abdominal pain and diarrhea. Genitourinary: Negative for frequency and urgency. Objective He does have flat facies. Only does not have a true shuffling gait he does have shortened steps and is somewhat forward balanced. He has a minimal amount of resting tremor today. Visit Vitals Ht 5' 7 Wt 153 lb BMI 23.96 kg/m Smoking Status Never BSA 1.81 m No Known Allergies Current Outpatient Medications Medication Instructions amantadine (Symmetrel) 100 MG tablet 1.5 tablets orally upon arising in the AM and then again in 6 to 8 hours aspirin 81 mg, Oral, 1 tablet orally once a week for 30 days atorvastatin (LIPITOR) 40 mg, Oral, Every 24 hours carbidopa-levodopa CR (Sinemet CR) 50-200 MG ER tablet 1.5 tablets orally upon arising in the AM and then again in 6 to 8 hours meclizine (ANTIVERT) 25 mg, Oral, 3 times daily PRN, 0.5-1 orally four time daily for 10 days nitroglycerin (NITROSTAT) 0.4 mg, Sublingual, As needed selegiline (ELDEPRYL) 5 mg, Oral, 2 times daily with meals tamsulosin (FLOMAX) 0.4 mg, Oral, Daily Assessment/Plan Diagnoses and all orders for this visit: Bright red rectal bleeding Chronic problem with acute exacerbation. This sounds like this is been going on and off for some time now. In view of the previously normal colonoscopy I offered to treat the chronic constipation first but then they understand if in several weeks he continues to have the bleeding that he most likely should see a surgeon. Chronic constipation Chronic problem that has poor control. With discussion it really seems more like they chased the constipation rather than attempting to get in front of it and control it. I have asked him to use a laxative tonight. Tomorrow I would like them to either use a soluble fiber such as Benefiber, or MiraLAX, twice daily every day. He needs to make sure he stays well hydrated. I also discussed that I would like the stools to be a little bit loose but he should not have nehal diarrhea or incontinence. If he is having problems with this they are to contact us back at the office. Parkinson's disease without dyskinesia, unspecified whether manifestations fluctuate - Ambulatory referral to Neurology; Future Chronic problem, unstable. We had a nehal discussion about his Parkinson's disease. At this point he is on what I would consider 3 basic medications and is still fairly symptomatic. In my opinion he deserves a consultation with neurology at this point. After some discussion he and his are in agreement. Referral made. documented in this encounter [facility] 07-14-2023 History of Presen t illness Narrative Subjective Thony Bryant is a 78 y.o. male Chief Complaint Annual Exam HPI Patient is in the office for follow-up for the problems noted below accompanied by his . He reports no complaints of palpitations or chest pain or dyspnea. His tremor is under control on present medications. His lab data from recently were reviewed and discussed with the patient and his . There is no concern noted. His weight is on target his blood pressure is normal. Cardiac and pulmonary examinations were normal. He has problems short-term memory but not with the long-term memory. ASSESSMENT AND PLAN: 1. Coronary artery disease status post percutaneous coronary intervention of the LAD and the right coronary artery in 2009 with no indication of recurrent disease and with controlled risk factors. His last stress test was normal in 2010. Currently there is no indication for cardiac investigations 2. Hyperlipidemia, on medical therapy with statin under excellent control 3. tremor being treated by Neurology using amantadine with success. 4. Dementia that is stable and not disturbing. Mata Barrientos MD, [facility] Review of Systems Neurological: Positive for dizziness. All other systems reviewed and are negative. Visit Vitals BP 118/75 Pulse 88 Ht 1.702 m (5' 7 ) Wt 69.4 kg (153 lb) BMI 23.96 kg/m Smoking Status Former BSA 1.81 m Objective Physical Exam Constitutional: Appearance: Normal appearance. He is normal weight. HENT: Nose: Nose normal. Neck: Vascular: No carotid bruit. Cardiovascular: Rate and Rhythm: Normal rate. Pulses: Normal pulses. Heart sounds: Normal heart sounds. Pulmonary: Effort: Pulmonary effort is normal. Abdominal: General: Bowel sounds are normal. Palpations: Abdomen is soft. Genitourinary: Rectum: Normal. Musculoskeletal: General: Normal range of motion. Cervical back: Normal range of motion. Right lower leg: No edema. Left lower leg: No edema. Skin: General: Skin is warm and dry. Neurological: General: No focal deficit present. Mental Status: He is alert. Psychiatric: Mood and Affect: Mood normal. Behavior: Behavior normal. Thought Content: Thought content normal. Judgment: Judgment normal. Current Medications Current Outpatient Medications: amantadine (Symmetrel) 100 mg tablet, Take 1 tablet (100 mg) by mouth 2 times a day., Disp: , Rfl: aspirin 81 mg EC tablet, Take 1 tablet (81 mg) by mouth once daily., Disp: , Rfl: atorvastatin (Lipitor) 40 mg tablet, Take 1 tablet (40 mg) by mouth once daily., Disp: , Rfl: carbidopa-levodopa (Sinemet CR) 50-200 mg ER tablet, Take 1 tablet by mouth 2 times a day. Do not crush or chew., Disp: , Rfl: docusate sodium (Stool Softener) 100 mg tablet, Take 1 tablet (100 mg) by mouth 2 times a day., Disp: , Rfl: ibuprofen (Advil Liqui-GeL) capsule, Take by mouth once daily., Disp: , Rfl: nitroglycerin (Nitrostat) 0.4 mg SL tablet, Place 1 tablet (0.4 mg) under the tongue., Disp: , Rfl: sennosides (Laxative Maximum Strength) 25 mg tablet, Take 1 tablet (25 mg) by mouth 3 times a day., Disp: , Rfl: tetrahydrozoline 0.05 % ophthalmic solution, Administer 1 drop into both eyes once daily., Disp: , Rfl: Assessment/Plan 1. Atherosclerosis of apache coronary artery of apache heart without angina pectoris 2. S/P coronary angioplasty 3. Hyperlipidemia, unspecified hyperlipidemia type documented in this encounter [facility] Work Phone: 07-14-2023 Instructions Melvina Moore LPN - 07/14/2023 10:30 AM EST Please bring all medicines, vitamins, and herbal supplements with you when you come to the office. Prescriptions will not be filled unless you are compliant with your follow up appointments or have a follow up appointment scheduled as per instruction of your physician. Refills should be requested at the time of your visit. Fall Prevention Education Given One year Same meds documented in this encounter [facility] Work Phone: 05-02-2022 Evaluation note Encounter Date Diagnosis Assessment Notes Apr, Cat bite, initial encounter (ICD-10 - W55.01XA) Discussed diagnosis with patient. Patient declines Tetanus today in office. Will send in rx of Augmentin to use as directed, allergies and recent antibiotic use reviewed. Advised to finish entire course. Advised to wash area twice a day with soap and water. Avoid use of ointments as it may prolong healing process. Follow up with PCP in the next 2-3 days. Immediate eval by ER if fever, chills, body aches, increase in swelling or redness, red streaking from wound, SOB, difficulty breathing, chest pain, or any new or concerning symptoms. Patient verbalizes understanding and is agreeable to treatment plan [facility] Other Evaluation note* Diagnosis Atherosclerosis of apache coronary artery of apache heart without angina pectoris S/P coronary angioplasty Postsurgical percutaneous transluminal coronary angioplasty status Hyperlipidemia, unspecified hyperlipidemia type documented in this encounter [facility] Work Phone: Evaluation note* Diagnosis Parkinson's disease with dyskinesia and fluctuating manifestations [facility] Diagnosis Bright red rectal bleeding- Primary Hemorrhage of rectum and anus Chronic constipation Unspecified constipation Parkinson's disease without dyskinesia, unspecified whether manifestations fluctuate documented [facility] this [facility] N[facility]ative - Reported* Type Description Date Medical History HYPERLIPIDEMIA Medical History CORONARY ARTERY DISEASE Medical History PARKINSON'S DISEASE Medical History DRY EYES Surgical History 2-3 HEART STENT PLACEMENT 2009 Surgical History CATARACTS REMOVED 2018 Hospitalization History SEE ABOVE [facility] Other Reason for referral (narrative)* Consultation (Routine) - Authorized Specialty Diagnoses / Procedures Referred By Yenny michael Referred To Contact Cardiology Diagnoses Atherosclerosis of apache coronary artery of apache heart without angina pectoris S/P coronary angioplasty Procedures Follow Up In Cardiology Mata Barrientos MD [address] [facility] [address], [address] [address] Mata Barrientos MD [facility] [facility] [address], [address] [address] Referral ID Status Reason Start Date Expiration Date V isits Requested Visits Authorized [id number] Authorized 07/14/2023 07/13/2024 1 1 [facility] Work Phone: Reqxtp for referral (narrative)* Consultation (Routine) - Authorized Specialty Diagnoses / Procedures Referred By Yenny michael Referred To Contact Neurology Diagnoses Parkinson's disease without dyskinesia, unspecified whether manifestations fluctuate Procedures UT OFFICE/OUTPATIENT NEW HIGH MDM 60 MINUTES Isaac Reyes MD [address] [place] [address] Je Orantes MD [address] [facility] [address] [place] [address] Referral ID Status Reason Start Date Expiration Date Visits Requested Visits Authorized [id number] Authorized Specialty Services Required 10/19/2023 04/16/2024 1 1 [facility] Summary Purpose Family History Unknown Family Member Name Dates Details FH: CABG (coronary artery by pass surgery): Father(V17.3, Z82.49) Status:Active Family history of malignant neoplasm of colon: Brother(V16.0, Z80.0) Status:Active Unknown Family Member Name Dates Details FH: CABG (coronary artery by pass surgery): Father(V17.3, Z82.49) Status:Active Family history of malignant neoplasm of colon: Brother(V16.0, Z80.0) Status:Active Unknown Family Member Name Dates Details FH: CABG (coronary artery by pass surgery): Father(V17.3, Z82.49) Status:Active Family history of malignant neoplasm of colon: Brother(V16.0, Z80.0) Status:Active Unknown Family Member Name Dates Details FH: CABG (coronary artery by pass surgery): Father(V17.3, Z82.49) Status:Active Family history of malignant neoplasm of colon: Brother(V16.0, Z80.0) Status:Active Advance Directives Documents on File Type Date Recorded 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 Advance Directives and Living Will 06/02/2023 3:28 PM 2021-12-04 Living Wi ll Power of [place] Knitter 06/02/2023 3:22 PM 05-29 Healthcare Power Of [place] Knitter Advance Directives and Living Will 12/04/2021 2021-12-04 Living Wi ll Documents on File Type Date Recorded 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 * Patient is in the office with his for follow-up for the problems noted below. Since his last visit he has had no cardiac events whatsoever. There is no angina palpitations dyspnea he is on minimal medications for his CAD which has been well-tolerated and sufficient. We have followed his lab periodically and his numbers look good. Examination today was unremarkable except for slight overweight. * ASSESSMENT AND PLAN: * 1. Coronary artery disease status post percutaneous coronary intervention of the LAD and the right coronary artery in 2009 with no indication of recurrent disease and with controlled risk factors. His last stress test was normal in 2010. Currently there is no indication for cardiac investigations * 2. Hyperlipidemia, on medical therapy with statin under excellent control * 3. Slight overweight. However, this is not a major concern given the close readings to the ideal BMI. * 4. tremor being treated by Neurology using amantadine with success. * 5. Dementia that is stable and not disturbing. * Mata Barrientos MD, FACC Additional Source Comments (unrecognized sect ion and content) No Status Records FoundNo Status Records FoundNo Status Records FoundNo Status Records FoundNo Status Records Found INFORMATION SOURCE (unrecogn ized section and content) DATE CREATED AUTHOR 10/07/2019 [facility] DATE CREATED AUTHOR AUTHOR'S ORGANIZ ATION 07/24/2022 [facility] DATE CREATED AUTHOR AUTHOR'S ORGANIZ ATION 07/24/2022 [employer] DATE CREATED AUTHOR AUTHOR'S ORGANIZ ATION 07/16/2023 [facility] DATE CREATED AUTHOR AUTHOR'S ORGANIZ ATION 10/23/2023 [facility] EPIC REASON FOR VISIT (unrecogniz ed section and content) Reason Comments Annual Exam 1yr Reason Onset Date Comments Care Coordination 10/21/2023 Reason Comments Rectal Bleeding Care Teams (unrecognized sec tion and content) Sink Maker Relationship Specialty Start Date End Date Isaac Reyes MD [address] [place] [address] PCP - General 07/24/21 Sink Maker Relationship Specialty Start Date End Date Isaac Reyes MD [address] [place] [place] [address] PCP - [facility] Medicine 01/29/23 Sink Maker Relationship Specialty Start Date End Date Isaac Reyes MD [address] [place] [address] PCP - [facility] 01/29/23 Sink Maker Relationship Specialty Start Date End Date Isaac Reyes MD [address] [place] [id number] PCP - [facility] 01/29/23 FOR RECORDS PERTAINING TO PATIENTS WHO ARE OR HAVE BEEN ENROLLED IN A CHEMICAL DEPENDENCY/SUBSTANCEABUSE PROGRAM, SOME INFORMATION MAY BE OMITTED. This clinical summary was aggregated from multiple sources. Caution should be exercised in using it in the provision of clinical care. This summary normalizes information from multiple sources, and as a consequence, information in this document may materially change the coding, format and clinical context of patient data. In addition, data may be omitted in some cases. CLINICAL DECISIONS SHOULD BE BASED ON THE PRIMARY CLINICAL RECORDS. [facility] [employer] [facility]. provides no warranty or guarantee of the accuracy or completeness of information in this document.
[2024-01-23 09:19] LABS: Estimated GFR (African America >60 (>=60); Estimated GFR (Non-African Ame 58 (>=60)
== END 2024-01-23 08:47 | disposition home or self-care (01) ==
LOC: LAB 08:46
PROVIDERS: PCP Family Medicine; Visit Provider Internal Medicine
DX: K92.1 Melena (principal); R63.4 Abnormal weight loss; K52.9 Noninfective gastroenteritis and colitis, unspecified; K59.00 Constipation, unspecified; K21.9 Gastro-esophageal reflux disease without esophagitis; N40.0 Benign prostatic hyperplasia without lower urinary tract symptoms; N20.0 Calculus of kidney
CPT/HCPCS: 36415; 74177; 82565; Q9967

== ENCOUNTER 2024-01-27 20:51 | Outpatient (REF) | payer OTHER, SELFPAY ==
--- OUTSIDE RECORDS SUMMARY | 2024-01-27 20:57 | XMS_ITS | CCD ---
Author Organization [facility] Care Team Providers Care Architectural Representative Name Role Phone ESHA ZEPEDA Admitting Unavailable DUANE, ESHA Attending Unavailable DUANE, ESHA Consulting Unavailable HOUSE, ESA Primary Care [...] Care UnavailIsaac Rodríguez MD Primary Care Provider [phone] COLLIN HENRY Attending Unavailable MICHELLE TO Referring [...] Start: 02-09-2023 take 1 tablet by isela th twice daily amantadine (Symmetrel) 100 mg tablet Take 1 tablet (100 mg) by mouth 2 times a day. 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 (414.01) (I25.10) S/P coronary angioplasty (V45.82) (Z98.61) LAD/RCA 2009 Essential tremor (333.1) (G25.0) Hyperlipidemia (272.4) (E78.5) Former smoker (V15.82) (Z87.891) quit 1971 1 pack per week x 5 years Overweight with body mass index (BMI) of 25 to 25.9 in adult (278.02,V85.21) (E66.3,Z68.25) Orders 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 Renew: Aspirin EC 81 MG Oral Tablet Delayed Release; 1 tablet on Thursday Renew: Nitroglycerin 0.4 MG Sublingual Tablet Sublingual; PLACE 1 TABLET UNDER THE TONGUE EVERY 5 MINUTES FOR UP TO 3 DOSES NEEDED FOR CHEST PAIN.CALL 911 IF PAIN PERSISTS 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, Hyperlipidemia Renew: Atorvastatin Calcium 40 MG Oral Tablet; TAKE 1 TABLET DAILY 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, Hyperlipidemia, S/P coronary angioplasty ALT - Alanine Aminotransferase, Serum; Status:Active - Retrospective Authorization; Requested for:[id number]; AST; Status:Active - Retrospective Authorization; Requested for:[id number]; Basic Metabolic Panel; Status:Active - Retrospective Authorization; Requested for:[id number]; Complete Blood Count; Status:Active - Retrospective Authorization; Requested for:[id number]; Lipid Panel; Status:Active - Retrospective Authorization; Requested for:[id number]; Overweight with body mass index (BMI) of 25 to 25.9 in adult Healthy Weight Tips; Status:Complete - Retrospective Authorization; Done: [id number] SocHx: Former smoker Tobacco Use Screening; Status:Complete; Done: [id number] Tobacco Use Screening; Status:Complete; Done: [id number] Patient Instructions Please bring all medicines, vitamins, [...] stable and not disturbing. Mata Barrientos MD, [facility] Surgical History Problems History of Cataract surgery History of Complete colonoscopy [id number] History of Tonsillectomy History of Tooth extraction [...] Caffeine use Coke occasionally Former smoker (V15.82) (Z87.311) quit 1971 1 pack per week x 5 years [...] Signs Recorde (more content not included)... Normal [facility] Tobacco Screening.on 022 Adult depression screening assessment No [facility] 250 DO Work Phone: Fall risk assessment b) One or more falls in the last year [facility] [employer] 250 DO Work Phone: Tobacco use status [facility] b) No [facility] 250 DO Work Phone: Tobacco Screening.on 021 Fall risk assessment a) No falls within the last year [facility] [employer] 250 DO Work Phone: Tobacco use status [facility] b) No [facility] [employer] 250 DO Work Phone: XR L-SPINE 2 - 3 VIEWSon XR L-SPINE 2 - 3 VIEWS Patient: THONY BRYANT Exam Date: 07/09/2019 : 1945 Gender:M Ordering : TELMA VINCENT Admission #: [id number] Family : DR YINKA MAN . Order #: [id number] CLICK HERE TO VIEW EXAM RADIOLOGY REPORT [...] Yates M.D. on 07/09/2019 at 20:30 [facility] Vital Signs Date Time Vital Sign Value Performing Clinician Facility 10-19-2023 16:06-0500 Body height 170.2 cm Isaac Reyes MD Work Phone: [facility] 10-19-2023 16:06-0500 Body mass index (BMI) [Ratio] 23.96 kg/m2 Isaac Reyes MD Work Phone: [facility] 10-19-2023 16:06-0500 Body weight 69.4 kg Isaac Reyes MD Work Phone: [facility] 07-14-2023 11:09-0500 Diastolic blood pressure 75 mm[Hg] Mata Barrientos MD Work Phone: [facility] 07-14-2023 11:09-0500 Systolic blood pressure 118 mm[Hg] Mata Barrientos MD Work Phone: [facility] 07-14-2023 10:45-0500 Body height 170.2 cm Mata Barrientos MD Work Phone: [facility] 07-14-2023 10:45-0500 Body mass index (BMI) [Ratio] 23.96 kg/m2 Mata Barrientos MD Work Phone: [facility] 07-14-2023 10:45-0500 Body weight 69.4 kg Mata Barrientos MD Work Phone: [facility] 07-14-2023 10:45-0500 Heart rate 88 /min Mata Barrientos MD Work Phone: [facility] 07-23-2022 10:44-0500 Body height 167.64 cm Isaac Reyes Work Phone: [facility] 250 DO Work Phone: 07-23-2022 10:44-0500 Body mass index (BMI) [Ratio] 25.02 kg/m2 Isaac Reyes Work Phone: [facility] 250 DO Work Phone: 07-23-2022 10:44-0500 Body surface area Derived from formula 1.79 m2 Isaac Reyes Work Phone: [facility] 250 DO Work Phone: 07-23-2022 10:44-0500 Body weight 70.31 kg Isaac Romanoluann Work Phone: [facility] 250 DO Work Phone: 07-23-2022 10:44-0500 Diastolic blood pressure 64 mm[Hg] Isaac Reyes Work Phone: [facility] 250 DO Work Phone: 07-23-2022 10:44-0500 Heart rate 88 /min Isaac Reyes Work Phone: [facility] 250 DO Work Phone: 07-23-2022 10:44-0500 Systolic blood pressure 104 mm[Hg] Isaac Romanoluann Work Phone: [facility] 250 DO Work Phone: 07-17-2022 16:23-0500 61 1 Isaac Romanoluann Work Phone: [facility] 250 DO Work Phone: Comment on above: [facility] 05-02-2022 15:35-0400 Body height 167.64 cm Mesha Joe Other [employer] Other 05-02-2022 15:35-0400 Body mass index (BMI) [Ratio] 25.69 kg/m2 Mesha Joe Other [employer] Other 05-02-2022 15:35-0400 Body temperature 98.1 [degF] Mesha Joe Other [employer] Other 05-02-2022 15:35-0400 Body weight 72.21 kg Mesah Joe Other [employer] Other 05-02-2022 15:35-0400 Diastolic blood pressure 64 mm[Hg] Mesha Joe Other [employer] Other 05-02-2022 15:35-0400 Respiratory rate 18 /min Mesha Joe Other [employer] Other 05-02-2022 15:35-0400 SaO2% (BldA) [Mass fraction] 98 % Mesha Joe Other [employer] Other 05-02-2022 15:35-0400 Systolic blood pressure 113 mm[Hg] Mesha Joe Other [employer] Other 07-24-2021 11:20-0500 Body height 167.64 cm Isaac Reyes Work Phone: [facility] 250 DO Work Phone: 07-24-2021 11:20-0500 Body mass index (BMI) [Ratio] 25.5 kg/m2 Isaac Reyes Work Phone: [facility] 250 DO Work Phone: 07-24-2021 11:20-0500 Body surface area Derived from formula 1.81 m2 Isaac Reyes Work Phone: [facility] 250 DO Work Phone: 07-24-2021 11:20-0500 Body weight 71.67 kg Isaac Reyes Work Phone: [facility] 250 DO Work Phone: 07-24-2021 11:20-0500 Diastolic blood pressure 79 mm[Hg] Isaac Reyes Work Phone: [facility] 250 DO Work Phone: 07-24-2021 11:20-0500 Heart rate 85 /min Isaac Reyes Work Phone: [facility] 250 DO Work Phone: 07-24-2021 11:20-0500 Systolic blood pressure 125 mm[Hg] Isaac Reyes Work Phone: [facility] 250 DO Work Phone: 07-08-2021 00:00-0400 59 1 Isaac Reyes Work Phone: [facility] 250 DO Work Phone: Comment on above: FSLDL Encounters Encounter Date Encounter Type Care Provider Facility Start: 10-21-2023 Telephone encounter Rachael Mary [facility] Comment on above: Care Coordination Start: 10-19-2023 End: 10-21-2023 ambulatory ISAAC REYES Not Available Start: 10-19-2023 End: 10-21-2023 Office outpatient visit 15 minutes Isaac Reyes MD Work Phone: [facility] Comment on above: Bright red rectal bl eeding (Primary Dx); Chronic constipation; Parkinson's disease without dyskinesia, unspecified whether manifestations fluctuate Start: 10-19-2023 Bamboo flowsheet Isaac kong MD Work Phone: [facility] Start: 10-19-2023 Bamboo flowsheet Isaac kong MD Work Phone: [facility] Start: 09-24-2023 End: 09-24-2023 ambulatory ISAAC REYES Not Available Start: 09-08-2023 End: 09-08-2023 ambulatory COLLIN HENRY Not Available Start: 07-21-2023 End: 07-21-2023 ambulatory ISAAC REYES Not Available Start: 07-14-2023 End: 07-14-2023 ambulatory MATA Ramirez [facility] Ambulatory Start: 07-14-2023 End: 07-14-2023 Office outpatient visit 25 minutes Mata Barrientos MD Work Phone: [facility] Comment on above: Atherosclerosis of n ative coronary artery of seneca heart without angina pectoris; S/P coronary angioplasty; Hyperlipidemia, unspecified hyperlipidemia type Start: 07-23-2022 Office outpatient vi sit 25 minutes Isaac Reyes Work Phone: [facility] 250 DO Work Phone: Start: 07-23-[address] Mata [facility] Facility: Start: 07-14-2022 Telephone encounter Isaac venegas Work Phone: [facility] 250 DO Work Phone: Start: 05-02-2022 End: 05-02-2022 ambulatory Mesha Joe Other [facility] Other Start: 05-02-2022 Office outpatient ne w 20 minutes Mesha Joe [facility] Start: 07-30-2021 Rx Renewal Isaac Gordillo er Work Phone: [facility] [address] [place] Work Phone: Start: 07-24-2021 Patient encounter procedure Isaac Reyes Work Phone: [facility] 250 DO Work Phone: Start: 09-07-2019 End: 10-06-2019 Patient encounter procedure ESA TRAVER Facility:[facility] Start: 07-27-2019 End: 09-06-2019 Patient encounter procedure ESA TRAVER Facility:[facility] Start: 07-09-2019 End: 07-09-2019 Patient encounter procedure ESA TRAVER Facility: Start: 04-27-2019 End: 04-27-2019 Patient encounter procedure ESHA ZEPEDA Facility: Procedures Date Procedure Procedure Detail Performing Clinician Cataract surgery Isaac lopez Work Phone: Tonsillectomy Isaac sun Work Phone: Tooth extraction Isaac lopez Work Phone: Total colonoscopy Isaac venegas Work Phone: Comment on above: [id number]; Plan of Treatment Date Care Activity Detail Author Start: 03-06-2024 Influenza vaccination Influenza Vacc ine (#1) [facility] Comment on above: Postponed from 05/08 (Patient Refused) Start: 12-09-2023 End: 12-09-2023 Patient encounter procedure 12/09/2023 11:30 AM EDT Office Visit [facility] [address] [place] [address] Isaac Reyes MD [address] [place] [address] [facility] Start: 07-14-2023 FUV, Provider: Mata Barrientos, Status: Pen, Time: 10:30 AM FUV, Provider: Mata Barrientos, Status: Pen, Time: 10:30 AM [facility] 250 DO Work Phone: Start: 05-08-2023 Influenza vaccination Influenza Vacc ine (#1) [facility] Start: 07-23-2022 FUV, Provider: Mata Barrientos, Status: Pen, Time: 11:00 AM FUV, Provider: Mata Barrientos, Status: Pen, Time: 11:00 AM [facility] 250 DO Work Phone: Start: 09-16-2016 Pneumococcal Vaccine : 65+ Years (2 - PPSV23 or PCV20) Pneumococcal Vaccine: 65+ Years (2 - PPSV23 or PCV20) [facility] Start: 09-16-2016 Pneumococcal Vaccine : 65+ Years (2 of 2 - PPSV23 or PCV20) Pneumococcal Vaccine: 65+ Years (2 of 2 - PPSV23 or PCV20) [facility] Start: 1997 Zoster Vaccines (1 o f 2) Zoster Vaccines (1 of 2) [facility] Start: 1969 DTaP/Tdap/Td Vaccine s (1 - Tdap) DTaP/Tdap/Td Vaccines (1 - Tdap) [facility] Start: 1965 Hepatitis C screening Hepatitis C Sc [facility] Start: 1945 COVID-19 Vaccine (#1) COVID-19 Vacci ne (#1) [facility] Start: 1945 Lipid panel Lipid Panel [facility] Start: 1945 Yearly Adult Physical Yearly Adult P hysical [facility] Immunizations Immunization Date Immunization Notes Care Provider Fa fredy 07-22-2016 pneumococcal conjuga te vaccine, 13 valent Isaac Romanoyer Work Phone: -[facility] 250 DO Work Phone: Comment on above: Series: Payers Date Payer Category Payer Private Health Insurance [facility] [id number] 2023-Present [address] [address] [place] [address] [id number] 2020 Unknown 2018 Medicare [id number] 1959 Unknown [id number] 1945 Unknown [id number] [id number] .2.593 1945 Unknown [id number] 2.16.840.1.151480.3.579 .2.593 1945 Unknown [id number] 2.16.840.1.733802.3.579 .2.593 1945 Unknown [id number] [id number] .2.593 1945 Unknown [id number] 2.16.840.1.345433.3.579 .2.356 1945 Unknown [id number] [id number] .2.1244 1945 Unknown [id number] 2.16.840.1.108143.3.579 .2.1259 1945 Unknown [id number] 2.16.840.1.209798.3.579 .2.1259 1945 Unknown [id number] 2.16.840.1.197989.3.579 .2.1259 1945 Unknown [id number] [id number] .2.1259 Medicare [id number] [id number] Unknown [id number] Social History Date Type Detail Facility Start: 07-13-2023 End: 09-24-2023 Rarely consumes alcohol Rarely consumes alcohol [facility] 250 DO Work Phone: Comment on above: quit 1971 1 pack per week x 5 years; Start: 07-13-2023 End: 09-24-2023 Sex Assigned At [facility] Other Start: 07-13-2023 Tobacco smoking status NHIS Ex-smoker [facility] Work Phone: History of tobacco use Current smoker [facility] Work Phone: History of tobacco use Cigarette Smoker [facility] Work Phone: Start: 07-13-2023 End: 07-21-2023 Tobacco use and exposure Smokeless tobacco non-user [facility] Work Phone: Start: 07-14-2023 Alcohol intake Lifetime non-d schuyler (finding) [facility] Work Phone: Start: 1945 Sex Assigned At Not on file [facility] Work Phone: Start: 07-04-2023 End: 07-14-2023 Exposure to SARS-CoV-2 (event) Not sure [facility] Start: 07-21-2023 Tobacco smoking status NHIS Never smoked tobacco [facility] Start: 09-24-2023 End: 10-22-2023 Alcohol intake Ex-drinker (finding) [facility] NEGATED: Highlighted row Denies Caffeine use Denies Caffeine use -[facility] 250 DO Work Phone: Comment on above: Coke occasionally; Clinical Notes 05-02-2022 to 10-21-2023 Telephone Encounter - Isaac Reyes MD - 10/21/2023 12:07 PM ESTTelephone Encounter - Isaac Reyes MD - 10/21/2023 12:07 PM ESTTelephone Encounter - Rachael Hernandez MA - 10/21/2023 11:09 AM EST Note Date & Type Note Facility 10-21-2023 Telephone encounter Note RX sent [facility] 10-21-2023 Miscellaneous Notes RX sent Juliana called and stated that when they got to talking about other things the other day at Ed's appointment, his script for Selegiline was missed. It goes to [facility] if its staying the same. documented in this encounter [facility] 10-21-2023 Telephone encounter Note Juliana called and stated that when they got to talking about other things the other day at Ed's appointment, his script for Selegiline was missed. It goes to [facility] if its staying the same. [facility] 10-19-2023 History of Presen t illness Narrative [...] agreement. Referral made. documented in this encounter [facility] 07-14-2023 History of Presen t illness Narrative [...] stable and not disturbing. Mata Barrientos MD, [facility] Review of Systems Neurological: Positive for dizziness. [...] Disp: , Rfl: Assessment/Plan 1. 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 S/P coronary angioplasty 3. 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 S/P coronary angioplasty Postsurgical percutaneous transluminal coronary angioplasty status Hyperlipidemia, unspecified hyperlipidemia type documented in this encounter [facility] Work Phone: Evaluation note* Diagnosis Parkinson's disease [...] CATARACTS REMOVED 2018 Hospitalization History SEE ABOVE [employer] Other Reason for referral (narrative)* Consultation (Routine) - Authorized Specialty Diagnoses / Procedures Referred By Yenny michael Referred To Contact Cardiology Diagnoses 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 S/P coronary angioplasty Procedures Follow Up In Cardiology Mata Barrientos MD [facility] [address], [address] [address] Mata Barrientos MD [facility] [address], [address] [address] Referral ID Status Reason Start Date Expiration Date V isits Requested Visits Authorized [id number] Authorized 07/14/2023 07/13/2024 1 1 [facility] Work Phone: Regszu for referral (narrative)* Consultation (Routine) - Authorized Specialty Diagnoses / Procedures Referred By Yenny michael Referred To Contact Neurology Diagnoses Parkinson's disease without dyskinesia, unspecified whether manifestations fluctuate Procedures UT OFFICE/OUTPATIENT NEW HIGH MDM 60 MINUTES Isaac Reyes MD [address] [place] [address] Je Orantes MD [address] [place] [address] Referral ID Status Reason Start Date Expiration Date Visits Requested Visits Authorized [id number] Authorized Specialty Services Required 10/19/2023 04/16/2024 1 [...] Documents on File Type Date Recorded Patient Vineyardist Expl anation Advance Directives and Living Will 06/02/2023 3:28 PM 2021-12-04 Living Wi ll Power of Financial Accounting Manager 06/02/2023 3:22 PM 05-29 Healthcare Power Of Financial Accounting Manager Advance Directives and Living Will 12/04/2021 2021-12-04 Living Wi ll Documents on File Type Date Recorded Patient Vineyardist Expl anation Advance Directives and Living Will 06/02/2023 3:28 PM 2021-12-04 Living Wi ll Power of Financial Accounting Manager 06/02/2023 3:22 PM 05-29 Healthcare Power Of Financial Accounting Manager Advance Directives and Living Will 12/04/2021 2021-12-04 [...] and content) DATE CREATED AUTHOR 10/07/2019 [facility] DATE CREATED AUTHOR AUTHOR'S ORGANIZ ATION 07/24/2022 [facility] DATE CREATED AUTHOR AUTHOR'S ORGANIZ ATION 07/24/2022 [facility] DATE CREATED AUTHOR AUTHOR'S ORGANIZ ATION 07/16/2023 [facility] DATE CREATED AUTHOR AUTHOR'S ORGANIZ ATION 10/23/2023 [facility] dical Specialists EPIC REASON FOR VISIT (unrecogniz ed section and content) Reason Comments Annual Exam 1yr Reason Onset Date Comments Care Coordination 10/21/2023 Reason Comments Rectal Bleeding Care Teams (unrecognized sec tion and content) Architectural Representative Relationship Specialty Start Date End Date Isaac Reyes MD [address] [place] [address] PCP - General 07/24/21 Architectural Representative Relationship Specialty Start Date End Date Isaac Reyes MD [address] [place] [id number] PCP - [facility] 01/29/23 Architectural Representative Relationship Specialty Start Date End Date Isaac Reyes MD [address] [place] [address] PCP - [facility] 01/29/23 Architectural Representative Relationship Specialty Start Date End Date Isaac Reyes MD [address] [place] [address] PCP - General Family Medicine 01/29/23 FOR RECORDS PERTAINING TO PATIENTS WHO [...] BE BASED ON THE PRIMARY CLINICAL RECORDS. [facility]. provides no warranty or guarantee of the accuracy or completeness of information in this document.
== END 2024-01-27 20:52 | disposition home or self-care (01) ==
LOC: LAB 20:51
PROVIDERS: PCP Family Medicine; Visit Provider Internal Medicine
DX: R63.4 Abnormal weight loss (principal); K92.1 Melena; R19.7 Diarrhea, unspecified
CPT/HCPCS: 87045; 87046; 87427

== ENCOUNTER 2024-08-25 07:13 | Outpatient (OUT) | payer MEDICARE, OTHER, SELFPAY ==
--- NOTE | 2024-08-25 07:14 | NM_ITS ---
The [address] [address] Patient Name: THONY BRYANT MRN: [id number] date: 1945 Sex: M Assigned Patient Location: OR Current Patient Location: OR Accession/Order Number: [id number] Exam Date: 08/25/2024 07:10 Report Date: 08/25/2024 13:19 At the request of: GAMAL REYES Procedure: OR bone 3 phase EXAMINATION: OR bone 3 phase HISTORY: LESION OF BONE OF LUMBOSACRAL SPINE COMPARISON: 01/13/2024 TECHNIQUE: Technetium 99m MDP was injected intravenously followed by acquisition of dynamic flow, immediate blood pool, and delayed static images. FINDINGS: IMAGED AREA: Lumbar spine FLOW PHASE: Normal. BLOOD POOL PHASE: Normal. DELAYED IMAGES: Increased activity identified in the right L4 and L5 vertebral bodies OTHER: Negative. OR/OR bone 3 phase IMPRESSION: No abnormal activity identified in the L2 vertebral body to correspond to the CT findings. Increased activity in the L4-L5 vertebral bodies likely representing degenerative change Electronically authenticated by: RICHIE HARMON Date: 08/25/2024 13:19
--- OUTSIDE RECORDS SUMMARY | 2024-08-25 07:16 | XMS_ITS | CCD ---
Author Organization [facility] Care Team Providers Care R D Internship Name Role Phone ESHA ZEPEDA Admitting Unavailable ESHA ZEPEDA Attending Unavailable DUANE, ESHA Consulting Unavailable HOUSE, ESA Primary Care Unavailable NIKI, ERASTO Consulting Unavailable HOUSE, ESA Primary Care Unavailable MAGDA, YINKA Admitting Unavailable HAY, YINKA Attending Unavailable LUCINA, IVELISSE Devries Consulting Unavailable KIRDIPAK, TELMA Consulting Unavailable HOUSE, ESA Admitting Unavailable HOUSE, ESA Attending Unavailable HOUSE, ESA Primary Care Unavailable HOUSE, ESA Admitting Unavailable ZANDRA, ESA Attending Unavailable Isaac Reyes Unavailable Unavailable Unavailable Mesha Joe Unavailable Iliana, Dr. Cheko Joshi Attending Daina vailable Dr. Cheko Barrientos Referring Daina vailable Isaac Reyes Primary Care Unavailab dunia Reyes MD, Isaac Braun Primary Care Provider Isaac Reyes MD Primary Care Provider MD Gregory Rico Attending Provider [phone] MD Isaac Reyes Primary Care Provider Madeline Teran Attending Unavailable Madeline Teran Admitting Unavailable Isaac Reyes Primary Care Unavailable Asaad, Imad Attending Unavailable Jacky, Imad Admitting Unavailable Isaac Reyes Primary Care Unavailable Asaad, Imad Attending Unavailable Asaad, Imad Admitting Unavailable Isaac Reyes Primary Care Unavailable Asaad, Imad Admitting Unavailable Isaac Reyes Primary Care Unavailable Asajanet, Imad Attending Unavailable MD Isaac Reyes Primary Care Provider MD Gregory Rico Attending Provider JAMAL Teran Attending Provider [phone] Isaac Reyes MD Primary Care Provider CHEKO BARRIENTOS Attending Unavailable CHEKO BARRIENTOS Referring Unavailable ISAAC REYES Primary Care Unavailable Isaac Reyes MD Primary Care Provider COLLIN HENRY Attending Unavailable MICHELLE TO Referring Unavailable ISAAC REYES Attending Unavailable ISAAC REYES Attending Unavailable ILYA ORANTES Attending Unavailable ISAAC REYES Referring Unavailable ILYA ORANTES Attending Unavailable APLZAINAB ALMEIDA Attending Unavailable APLING, ZAINAB Boyd Attending Unavailable APLINGZAINAB Attending Unavailable APLINGZAINAB Referring Unavailable ILYA ORANTES Attending Unavailable KAILA ROSS Attending Unavailable APLING, ZAINAB Boyd Attending Unavailable APLINGZAINAB Referring Unavailable Medications Current Medications Medication Drug Class(es) Dates Sig (Normalized) Sig (Original) amantadine hydrochloride 100 mg oral tablet (20 sources) Influenza A M2 Protein Inhibitor Start: 06-22-2024 End: 06-22-2025 take 1 tablet by mouth in the morning amantadine (Symmetrel) 100 MG tablet Indications: Parkinson's disease (CMS/HCC) Take 1 tablet (100 mg) by mouth in the morning and at noon 180 tablet 3 06/22/2024 06/22/2025 Active Start: 02-09-2023 End: 06-20-2024 take 1 tablet by mouth in the morning amantadine (Symmetrel) 100 MG tablet Indications: Parkinson's disease (CMS/HCC) Take 1 tablet (100 mg) by mouth in the morning and 1 tablet (100 mg) before bedtime. 180 tablet 2 02/05/2024 06/20/2024 Discontinued (Med list cleanup) Start: 02-09-2023 take 1.5 tablets by mouth in the morning amantadine (Symmetrel) 100 MG tablet Indications: Parkinson's disease 1.5 tablets orally upon arising in the AM and then again in 6 to 8 hours 180 tablet 1 02/09/2023 Active Start: 09-25-2019 take 200 mg by mouth once chalo y Amantadine Hcl Active 200 MG PO Daily September 25, 2019 1:00am take 1 tablet by isela th twice [...] 12 hrs for 10 day(s) Apr, Active atorvastatin 40 mg oral tablet (20 sources) HMG-CoA Reductase Inhibitor Start: 02-24-2018 End: 07-13-2024 take 1 tablet by mouth once daily atorvastatin (Lipitor) 40 mg tablet Indications: 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 without angina pectoris , Hyperlipidemia, unspecified hyperlipidemia type Take 1 tablet (40 mg) by mouth once daily. 90 tablet 3 07/14/2023 Active Carbidopa / Levodopa (20 sources) Aromatic Amino Acid Decarboxylation Inhibitor, Aromatic Amino Acid Start: 06-17-2024 take 1 tablet by mouth twice daily Carbidopa-Levodopa Active 1 TAB PO Twice daily June 17, 2024 12:00am Start: 06-17-2024 Carbidopa-Levo dopa Active TAB PO June 17, 2024 12:00am Start: 04-21-2024 take 0.5 tablet by m outh three times daily carbidopa-levodopa (Sinemet) 25-100 mg tablet Take 0.5 tablets by mouth 3 times a day. 04/21/2024 Active Start: 04-16-2024 End: 04-11-2025 take 0.5 tablet by mouth in the morning, then take 0.5 tablet by mouth in the evening, then take 0.5 tablet by mouth at bedtime carbidopa-levodopa (Sinemet) 25-100 MG tablet Indications: Parkinson's disease without dyskinesia, unspecified whether manifestations fluctuate (CMS/HCC) Take 0.5 tablets by mouth in the morning and 0.5 tablets in the evening and 0.5 tablets before bedtime. 135 tablet 3 04/16/2024 04/11/2025 Active Start: 02-05-2024 carbidopa-levo dopa CR (Sinemet CR) 50-200 MG ER tablet Indications: Parkinson's disease (CMS/HCC) 1.5 tablets orally upon arising in the AM and then again in 6 to 8 hours 270 tablet 1 02/05/2024 Active Start: 01-20-2024 End: 06-17-2024 take 2 tablets by mouth once daily Carbidopa-Levodopa Discontinued 2 TAB PO Daily January 20, 2024 12:00am June 17, 2024 6:02pm Start: 08-24-2023 carbidopa-levo dopa CR (Sinemet CR) 50-200 MG ER tablet Indications: Parkinson's disease 1.5 tablets orally upon arising in the AM and then again in 6 to 8 hours 270 tablet 1 08/24/2023 Active Start: 12-18-2018 End: 07-14-2023 take 1 tablet by mouth once daily carbidopa-levodopa (Sinemet) 25-100 mg tablet Take 1 tablet by mouth once daily. 0 12/18/2018 07/14/2023 Discontinued (Other) docusate sodium 100 mg oral tablet (4 sources) take 1 tablet by isela twice daily docusate sodium (Stool Softener) 100 mg tablet Take 1 tablet (100 mg) by mouth 2 times a day. Active take 1 tablet by mouth once chalo y Stool Softener 100 MG Oral Tablet TAKE 1 TABLET DAILY DIRECTED. Quantity: 0 Refills: 0 Ordered: 23-Jul-2022 DO Active take 1 capsule by mo [facility] every twenty-four hours Colace 100 MG 1 capsule as needed Orally Once a day Active ibuprofen 200 mg oral tablet (20 sources) Nonsteroidal Anti-inflammatory Drug take 1 tablet by mouth every twenty-four hours as needed for pain ibuprofen 200 MG tablet Take 200 mg by mouth Daily as needed for mild pain Active ibuprofen (Advil Liqui-GeL) capsule Take by mouth once daily. Active Advil CAPS as ne eded Quantity: [...] daily for 10 days 0 09/04/2022 Active Multiple Vitamin (multivitamin) tablet (20 sources) take 1 tablet by mouth once daily Multiple Vitamin (multivitamin) tablet Take 1 tablet by mouth Daily Active Multivitamin preparation (4 sources) Start: 01-20-2024 take 1 tablet by mouth once daily Multivitamin Active 1 TAB PO Daily January 20, 2024 12:00am nitroglycerin 0.4 mg sublingual tablet (20 sources) Nitrate Vasodilator Start: 07-23-2022 End: 07-13-2024 nitroglycerin (Nitrostat) 0.[address] 0.4 mg under the tongue if needed for chest pain. 07/23/2022 Active polyethylene glycol 3350 88258 mg powder for oral solution (4 sources) Osmotic Laxative Start: 01-20-2024 Polyethylene Glycol 3350 (Miralax) 17 gram/dose powder Active 17 GM PO Daily January 20, 2024 12:00am Polyethylene Glycols (20 sources) Polyethylene Gly col 3350 (MIRALAX PO) Take by mouth Active Polyvinyl Alcohol / Povidone (20 sources) Polyvinyl Alcohol-Povidone (REFRESH OP) Administer into affected eye(s) Active selegiline hydrochloride 5 mg oral tablet (20 sources) Monoamine Oxidase Inhibitor, Monoamine Oxidase Type B Inhibitor Start: 02-05-2024 End: 07-20-2025 take 1 tablet by mouth in the morning selegiline (Eldepryl) 5 MG tablet Indications: Parkinson's disease with dyskinesia and fluctuating manifestations (CMS/HCC) Take 1 tablet (5 mg) by mouth in the morning and 1 tablet (5 mg) in the evening. Take with meals. 180 tablet 3 07/20/2024 07/20/2025 Active Start: 09-16-2023 End: 01-19-2024 take 5 mg by mouth twice daily Selegiline Hcl Active 5 MG PO Twice daily January 20, 2024 12:00am sennosides, alf 25 mg oral tablet (3 sources) take 1 tablet by isela three times daily sennosides (Laxative Maximum Strength) 25 mg tablet Take 1 tablet (25 mg) by mouth 3 times a day. Active take 2 tablets by mo [facility] every twenty-four hours Senna 8.6 MG 2 tablets at bedtime as needed Orally Once a day Active tetrahydrozoline hydrochloride 0.5 mg/ml ophthalmic solution (3 sources) take 1 drop(s) into the eye(s) once daily tetrahydrozoline 0.05 % ophthalmic solution Administer 1 drop into both eyes once daily. Active vitamin b12 0.5 mg oral tablet (20 sources) Vitamin B12 take 1 tablet by mouth once daily cyanocobalamin (Vitamin B-12) 500 MCG tablet Take 500 mcg by mouth Daily Active Completed/Discontinued Medications Medication Drug Class(es) Dates Sig (Normalized) Sig (Original) acetaminophen 325 mg / oxyCODONE hydrochloride 5 mg oral tablet (4 sources) Opioid Agonist Start: 09-25-2019 End: 01-20-2024 take 1 tablet by mouth every six hours Oxycodone-Acetamin ophen (Percocet) 5-325 mg tablet Discontinued 1 TAB PO Q6H 10 September 25, 2019 January 20, 2024 3:05pm aspirin 81 mg delayed release oral tablet (15 sources) Platelet Aggregation Inhibitor, Nonsteroidal Anti-inflammatory Drug Start: 02-24-2018 End: 01-20-2024 take 1 tablet by mouth once daily Aspirin (Aspir-81) 81 mg Tablet,Delayed Release (Dr/Ec) Discontinued 162 MG PO Daily February 24, 2018 12:00am January 20, 2024 3:05pm End: 07-14-2024 take 1 tablet by mouth once daily aspirin 81 mg EC tablet Take 1 tablet (81 mg) by mouth once daily. 07/14/2024 Discontinued (Discontinued by another clinician) take 1 tablet by isela th every week aspirin 81 MG EC tablet Take 81 mg by mouth. 1 tablet orally once a week for 30 days 0 Active Aspirin EC 81 MG Oral Tablet Delayed Release 1 tablet on Thursday Quantity: 12 Refills: 3 Ordered: 23-Jul-2022 Cheko Barrientos MD Active take 1 tablet by isela th every week Aspirin 81 81 MG 1 tablet Orally once a week Active hydrOXYzine hydrochloride 25 mg oral tablet (4 sources) Antihistamine Start: 02-24-2018 End: 09-25-2019 take 25 mg by mouth every six hours Hydroxyzine Hcl Discontinued 25 MG PO Q6H February 24, 2018 12:00am September 25, 2019 11:53am Laxative TABS (1 source) Laxative TABS 3 times weekly Quantity: 0 Refills: 0 Ordered: 23-Jul-2022 DO Active linaclotide (4 sources) Guanylate Cyclase-C Agonist Start: 02-24-2018 End: 09-25-2019 take 1 capsule by mouth once daily Linaclotide (Linzess) 145 mcg Capsule Discontinued 145 MCG PO Daily February 24, 2018 12:00am September 25, 2019 11:53am ondansetron 4 mg disintegrating oral tablet (4 sources) Serotonin-3 Receptor Antagonist Start: 09-25-2019 End: 01-20-2024 take 4 mg by mouth three times daily Ondansetron Discontinued 4 MG PO Three times daily 06 10September 25, 2019 1:00am January 20, 2024 3:05pm tamsulosin hydrochloride 0.4 mg oral capsule (12 sources) alpha-Adrenergic Nina Start: 09-25-2019 End: 01-20-2024 take 1 capsule by mouth once daily Tamsulosin (Flomax) 0.4 mg capsule Discontinued 0.4 MG PO Daily September 25, 2019 1:00am January 20, 2024 3:05pm Problems Active Problems Problem Classification Problem Date Documented Date Episodic/Chronic Cataract (20 sources) Artificial lens present; Translations: [Presence of intraocular lens] Onset: 02-09-2023 02-09-2023 Chronic Chronic kidney disease (20 sources) Chronic kidney disease stage 3A ; Translations: [Chronic kidney disease, stage 3a (HCC)] Onset: 02-09-2023 10-03-2023 Chronic Chronic obstructive pulmonary disease and bronchiectasis (20 sources) Simple chronic bronchitis; Translations: [Simple chronic bronchitis] Onset: 02-09-2023 02-09-2023 Chronic Coronary atherosclerosis and other heart disease (20 sources) Atherosclerotic heart disease of [place] coronary artery without angina pectoris; Translations: [Coronary atherosclerosis] Onset: 03-07-2019 07-14-2023 Chronic Delirium, dementia, and amnestic and other cognitive disorders (6 sources) Primary degenerative dementia of the Alzheimer type, presenile onset, uncomplicated; Translations: [Alzheimer's disease] Onset: 07-13-2023 07-13-2023 Chronic Disorders of lipid metabolism (20 sources) Hyperlipidemia, unspecified; Translations: [Hyperlipidemia] Onset: 03-07-2019 07-14-2023 Chronic Fracture of upper limb (20 sources) Fracture of metacarpal bone; Translations: [Unspecified fracture of other metacarpal bone, initial encounter for closed fracture] Onset: 07-22-2024 06-17-2024 Episodic Hyperplasia of prostate (20 sources) Benign prostatic hyperplasia; Translations: [Benign prostatic hyperplasia with lower urinary tract symptoms] Onset: 02-09-2023 02-09-2023 Chronic Joint disorders and dislocations; trauma-related (1 source) Other disorders of patella, right knee; Translations: [OTHER DISORDERS PATELLA RIGHT KNEE] Onset: 08-08-2019 Chronic Osteoporosis (1 source) Age-related osteoporosis without current pathological fracture; Translations: [Age-related osteoporosis without current pathological fracture] Onset: 03-25-2024 Chronic Other aftercare (1 source) [employer]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; Translations: [USP CURRENT USE OF ASPIRIN] Onset: 07-12-2019 Episodic Other connective tissue disease (2 sources) Pain in right hand; Translations: [Pain in right hand] 06-20-2024 Episodic Other hereditary and degenerative nervous system conditions (20 sources) Essential tremor; Translations: [Essential and other specified forms of tremor] Onset: 02-09-2023 07-13-2023 Chronic Other injuries and conditions due to external causes (1 source) Unspecified injury of right wrist, hand and finger(s), initial encounter; Translations: [Unspecified injury of right wrist, hand and finger(s), initial encounter] Onset: 06-17-2024 Episodic Other injuries and conditions due to external causes (10 sources) Injury of right hand; Translations: [Unspecified injury of right wrist, hand and finger(s), initial encounter] Onset: 07-22-2024 06-17-2024 Episodic Other injuries and conditions due to external causes (1 source) At risk for falls ; Translations: [History of falling] 07-14-2024 Episodic Other injuries and conditions due to external causes (2 sources) History of falling; Translations: [History of falling] Onset: 07-14-2024 Episodic Other liver diseases (1 source) Fatty (change of) liver, not elsewhere classified; Translations: [Fatty (change of) liver, not elsewhere classified] Onset: 03-31-2024 Chronic Other lower respiratory disease (1 source) Shortness of breath; Translations: [SHORTNESS OF BREATH] Onset: 07-12-2019 Episodic Other male genital disorders (20 sources) Male erectile dysfunction, unspecified; Translations: [Impotence of organic origin] Onset: 02-09-2023 02-09-2023 Chronic Other non-traumatic joint disorders (4 sources) Pain in right hip; Translations: [PAIN IN RIGHT HIP] Onset: 07-09-2019 Episodic Other nutritional; endocrine; and metabolic disorders (4 sources) Overweight in adulthood with body mass index of 25 or more but less than 30; Translations: [Overweight] Episodic Other nutritional; endocrine; and metabolic disorders (3 sources) Abnormal weight loss; Translations: [Loss of weight] 01-20-2024 Episodic Residual codes; unclassified (16 sources) Body mass index 20-24 - normal; Translations: [Body mass index (BMI) 23.0-23.9, adult] Onset: 07-14-2024 07-14-2024 Episodic Residual codes; unclassified (1 source) Amnesia; Translations: [Other amnesia] 07-14-2024 Episodic Residual codes; unclassified (2 sources) Body mass index (BMI) 23.0-23.9, adult; Translations: [Body mass index (BMI) 23.0-23.9, adult] Onset: 07-14-2024 Episodic Residual codes; unclassified (2 sources) Other amnesia; Translations: [Other amnesia] Onset: 07-14-2024 Episodic Screening and history of mental health and substance abuse codes (19 sources) Ex-smoker; Translations: [Personal history of tobacco use] Onset: 07-14-2024 07-14-2024 Episodic Comment on above: quit 1971 1 pack per week x 5 years; Spondylosis; intervertebral disc disorders; other back problems (4 sources) Unspecified thoracic, thoracolumbar and lumbosacral intervertebral disc disorder; Translations: [UNS THORACIC TL AND LS IV DISC D/O] Onset: 07-27-2019 Chronic Spondylosis; intervertebral disc disorders; other back problems (1 source) Lumbago with sciatica, right side; Translations: [LUMBAGO WITH SCIATICA RIGHT SIDE] Onset: 07-12-2019 Episodic Unclassified (20 sources) Parkinson's disease; Translations: [Parkinson's disease] Onset: 02-09-2023 02-09-2023 Chronic Past or Other Problems Problem Classification Problem Date Documented Da te Episodic/Chronic Calculus of urinary tract (20 sources) Ureteric stone; Translations: [Calculus of ureter] Onset: 4 08-19-2023 Episodic Coronary atherosclerosis and other heart disease (20 sources) Presence of coronary angioplasty implant and graft; Translations: [Past history of procedure] Onset: 9 07-14-2023 Episodic Comment on above: LAD/RCA 2009; E Codes: Natural/environment (1 source) Bitten by cat, initial encounter Onset: 2 Resolved: 2 Episodic Gastrointestinal hemorrhage (20 sources) Gastrointestinal hemorrhage; Translations: [Hemorrhage of anus and rectum] Onset: 4 10-22-2023 Episodic Genitourinary symptoms and ill-defined conditions (20 sources) Increased frequency of urination; Translations: [Frequency of micturition] Onset: 3 02-09-2023 Episodic Mood disorders (20 sources) Mood disorders Onset: 4 09-24-2023 Noninfectious gastroenteritis (20 sources) Gastroenteritis; Translations: [Noninfective gastroenteritis and colitis, unspecified] Onset: 4 01-20-2024 Episodic Other and unspecified benign neoplasm (1 source) Personal history of colonic polyps; Translations: [PERSONAL HISTORY OF COLONIC POLYPS] Onset: 9 Episodic Other eye disorders (20 sources) Senile entropion of right eyelid; Translations: [Senile entropion of right eye, unspecified eyelid] Onset: 4 09-08-2023 Episodic Other gastrointestinal disorders (4 sources) Diarrhea, unspecified; Translations: [DIARRHEA UNSPECIFIED] Onset: 9 Episodic Other gastrointestinal disorders (20 sources) Chronic constipation; Translations: [Other constipation] Onset: 3 02-09-2023 Episodic Other gastrointestinal disorders (1 source) Change in bowel habit; Translations: [Change in bowel habit] Onset: 4 Episodic Other nutritional; endocrine; and metabolic disorders (20 sources) Unintentional weight loss; Translations: [Abnormal weight loss] Onset: 4 01-20-2024 Episodic Residual codes; unclassified (1 source) Family history of malignant neoplasm of digestive organs; Translations: [FAM HX MALIG NEOPLASM DIGESTIV ORGN] Onset: 9 Episodic Residual codes; unclassified (20 sources) Active advance directive (copy within chart) ; Translations: [Other specified health status] Onset: 4 09-29-2023 Episodic Unclassified (2 sources) Onset: 3 Resolved: 4 07-14-2023 Results Test Name Value Interpretation Reference Range Facil ity XR Hand - right 3 [facility] Result: Imaging Result: Multiple views of right hand showed fracture through the Shaft of the fifth metacarpal to be in unchanged position and alignment with increased callus formation at the fracture site compared to prior x-ray. There was no other acute bony process including but not limited to separate fracture and/or dislocation. Impression: Healing fracture Shaft of Right fifth metacarpal [facility] [employer] [place] XR Hand - right 3 ViewsOrder ed By: Jr. Kaufman on 08-09-2024 [employer] Work Phone: XR Hand - right 3 [facility] Radiology Study observation (narrative) [facility] [employer] [place] XR Hand - right 3 [facility] Result: Xrays ap, LAT and OBL of the right hand performed on July 18, 2024 demonstrates reveals oblique 5th MC shaft fracture with callus formation. 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 Zainab Lemon EDUCATION ADMINISTRATIVE ASSISTANT [facility] [employer] [place] XR Hand - right 3 ViewsOrder ed By: Gal Cortes on 07-19-2024 [employer] Work Phone: XR Hand - right 3 [facility] Radiology Study observation (narrative) [facility] [employer] [place] XR hand RT min 3V*on 024 XR hand RT min 3V* [facility] [place] [address] [place] [id number] XRay Report Signed Patient: Thony Bryant MR#: [id number] : 1945 Acct:[id number] Age/Sex: 79 / M ADM Date: 06/17/24 Loc: XDUCLY Room: Type: [facility] Attending Dr: Madeline Teran APRN Copies to: Madeline Teran APRN Ordering Provider: Madeline Teran APRN Date of Service: 06/17/24 XR/XR hand RT min 3V*: r/o fracture XR hand RT min 3V* 06/17/2024 6:38 PM SIGNS AND SYMPTOMS: Fall onto right hand with pain in the fifth metacarpal. Limited range of motion in right hand. PROTOCOL: Frontal, lateral, and oblique radiographs of the right hand COMPARISON: None FINDINGS: There is narrowing of the first carpal metacarpal joint space with periarticular calcifications. There is narrowing of the metacarpal phalangeal joint space, greatest in the second and third digit. There is an obliquely oriented minimally displaced fracture of the shaft of the fifth metacarpal. There is accompanying soft tissue swelling along the radial side of the hand. XR/XR hand RT min 3V* IMPRESSION: There is an obliquely oriented minimally displaced fracture of the shaft of the fifth metacarpal. There is accompanying soft tissue swelling along the radial side of the hand. Impression dictated by: Michelle Caceres M.D.06/17/2024 6:41 PM Dictation Location: [place] [address] Transcribed By: [facility] 06/17/241840 Dictated By: Michelle Caceres II, MD 06/17/241839 Signed By: 06/17/241840 [facility] 02-19-2024 L Specimen: [id number] Received: 02/22/24 Status: HANNA [place] Num: [id number] Spec Type: Surgical Subm Dr: Gregory Rico MD Tissues: A Colon Biopsy (RANDOM COLON BX R/O MICROSCO) Procedures: HE/2, Gross/Micro L4 Age/ Patient Sex Location Account Attending Physician Thony Bryant 79/M [id number] Gregory Rico MD SPEC NUM: [id number] RECD: 02/22/24 STATUS: HANNA [place]BERRY NUM: [id number] WARNER: 02/19/[address]: Gregory Rico MD ENTERED: 02/22/24 [facility] DR: SPEC TYPE: Surgical DEPT: S REC BY: [id number] ORDERED: HE/2, Gross/Micro L4 ORDERED: HE/2, Gross/Micro L4 Pathological Diagnosis Colon, random biopsy: No evidence of colitis. Clinical Information Melena, weight loss, diarrhea. Rule out microscopic colitis Gross Description Received in formalin labeled with the patient's name, date of and random colon BX are 3 nation mucosal tissue fragments ranging from 0.3 x 0.2 x 0.1 cm to 0.2 x 0.1 x 0.1 cm, entirely submitted in A1. CPT Codes 06825 -------- -------- Specimen: [id number] Received: 02/22/24 Status: HANNA [place] Num: [id number] Spec Type: Surgical Subm Dr: Gregory Rico MD Tissues: A Colon Biopsy (RANDOM COLON BX R/O MICROSCO) Procedures: HE/2, Gross/Micro L4 -------- Patient: Thony Bryant [id number] (Continued) -------- Signed (signature on file) Zulay Tabor MD 02/23/24 1408 Normal [facility] Office Visit (Cardiology)on 07-23-2022 Follow-up visit Diagnoses/Problems Assessed 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 without angina pectoris (414.01) (I25.10) S/P coronary angioplasty (V45.82) (Z98.61) LAD/RCA 2009 Essential tremor (333.1) (G25.0) Hyperlipidemia (272.4) (E78.5) Former smoker (V15.82) (Z87.891) quit 1971 1 pack per week x 5 years Overweight with body mass index (BMI) of 25 to 25.9 in adult (278.02,V85.21) (E66.3,Z68.25) Orders 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 without angina pectoris Renew: Aspirin EC 81 MG Oral Tablet Delayed Release; 1 tablet on Thursday Renew: Nitroglycerin 0.4 MG Sublingual Tablet Sublingual; PLACE 1 TABLET UNDER THE TONGUE EVERY 5 MINUTES FOR UP TO 3 DOSES NEEDED FOR CHEST PAIN.CALL 911 IF PAIN PERSISTS 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 without angina pectoris, Hyperlipidemia Renew: Atorvastatin Calcium 40 MG Oral Tablet; TAKE 1 TABLET DAILY 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 without angina pectoris, Hyperlipidemia, S/P coronary angioplasty ALT - Alanine Aminotransferase, Serum; Status:Active - Retrospective Authorization; Requested for:23Jul2023; AST; Status:Active - Retrospective Authorization; Requested for:23Jul2023; Basic Metabolic Panel; Status:Active - Retrospective Authorization; Requested for:23Jul2023; Complete Blood Count; Status:Active - Retrospective Authorization; Requested for:23Jul2023; Lipid Panel; Status:Active - Retrospective Authorization; Requested for:23Jul2023; Overweight with body mass index (BMI) of 25 to 25.9 in adult Healthy Weight Tips; Status:Complete - Retrospective Authorization; Done: 23Jul2022 SocHx: Former smoker Tobacco Use Screening; Status:Complete; Done: 23Jul2022 Tobacco Use Screening; Status:Complete; Done: 23Jul2022 Patient Instructions Please bring all medicines, vitamins, [...] Dementia that is stable and not disturbing. Cheko Barrientos MD, [facility] Surgical History Problems History of Cataract surgery History of Complete colonoscopy [id number] History of Tonsillectomy History of Tooth extraction [...] Caffeine use Coke occasionally Former smoker (V15.82) (Z87.891) quit 1971 1 [...] Signs Recorde (more content not included)... Normal View3 Tobacco Screening.on 022 Adult depression screening assessment No [facility] 250 DO Work Phone: Fall risk assessment b) One or more falls in the last year [facility] [place] 250 DO Work Phone: Tobacco use status [facility] b) No [facility] 250 DO Work Phone: Tobacco Screening.on 021 Fall risk assessment a) No falls within the last year [facility] 250 DO Work Phone: Tobacco use status CP b) No [facility] [employer] 250 DO Work Phone: XR L-SPINE 2 - 3 VIEWSon XR L-SPINE 2 - 3 VIEWS Patient: THONY BRYANT Exam Date: 07/09/2019 : 1945 Gender:M Ordering : TELMA VINCENT Admission #: [id number] Family : DR YINKA MAN . Order #: [id number] CLICK HERE TO VIEW EXAM RADIOLOGY REPORT [...] facet arthropathy, marked at L4-5. Dictated by: Ivelisse Yates M.D. on 07/09/2019 at 20:28 Approved by: Ivelisse Yates M.D. on 07/09/2019 at 20:30 Normal [facility] Vital Signs Date Time Vital Sign Value Performing Clinician Facility 07-22-2024 11:23-0500 Body height 170.2 cm Ilya Orantes MD Work Phone: [facility] 07-22-2024 11:23-0500 Body mass index (BMI) [Ratio] 23.49 kg/m2 Ilya Orantes MD Work Phone: [facility] 07-22-2024 11:23-0500 Body weight 68.04 kg Ilya Orantes MD Work Phone: [facility] 07-14-2024 10:52-0500 Diastolic blood pressure 86 mm[Hg] Cheko Barrientos MD Work Phone: [facility] 07-14-2024 10:52-0500 Systolic blood pressure 136 mm[Hg] Cheko Barrientos MD Work Phone: [facility] 07-14-2024 10:36-0500 Body height 170.2 cm Cheko Barrientos MD Work Phone: [facility] 07-14-2024 10:36-0500 Body mass index (BMI) [Ratio] 23.34 kg/m2 Cheko Barrientos MD Work Phone: [facility] 07-14-2024 10:36-0500 Body weight 67.59 kg Cheko Barrientos MD Work Phone: [facility] 07-14-2024 10:36-0500 Heart rate 72 /min Cheko Barrientos MD Work Phone: [facility] 06-17-2024 18:09-0400 Body height 170.18 cm MD Isaac Reyes Work Phone: [facility] 06-17-2024 18:09-0400 Body mass index (BMI) [Ratio] 22.9 kg/m2 MD Isaac Reyes Work Phone: [facility] 06-17-2024 18:09-0400 Body temperature 96.9 [degF] MD Isaac Reyes Work Phone: [facility] 06-17-2024 18:09-0400 Body weight 66.39 kg MD Isaac Reyes Work Phone: [facility] 06-17-2024 18:09-0400 Diastolic blood pressure 74 mm[Hg] MD Isaac Reyes Work Phone: [facility] 06-17-2024 18:09-0400 Heart rate 89 /min MD Isaac Reyes Work Phone: [facility] 06-17-2024 18:09-0400 Respiratory rate 18 /min MD Isaac Reyes Work Phone: [facility] 06-17-2024 18:09-0400 SaO2% (BldA) [Mass fraction] 97 % MD Isaac Reyes Work Phone: [facility] 06-17-2024 18:09-0400 Systolic blood pressure 118 mm[Hg] MD Isaac Reyes Work Phone: [facility] 02-19-2024 14:15-0400 Diastolic blood pressure 97 mm[Hg] MD Isaac Reyes Work Phone: [facility] 02-19-2024 14:15-0400 Heart rate 70 /min MD Isaac Reyes Work Phone: [facility] 02-19-2024 14:15-0400 Respiratory rate 20 /min MD Isaac Reyes Work Phone: [facility] 02-19-2024 14:15-0400 SaO2% (BldA) [Mass fraction] 100 % MD Isaac Reyes Work Phone: [facility] 02-19-2024 14:15-0400 Systolic blood pressure 162 mm[Hg] MD Isaac Reyes Work Phone: [facility] 02-19-2024 11:56-0400 Body height 170.18 cm MD Isaac Reyes Work Phone: [facility] 02-19-2024 11:56-0400 Body temperature 97.5 [degF] MD Isaac Reyes Work Phone: [facility] 02-19-2024 11:56-0400 Body weight 68.04 kg MD Isaac Reyes Work Phone: [facility] 01-20-2024 15:01-0400 Body height 172.72 cm MD Isaac Reyes Work Phone: [facility] 01-20-2024 15:01-0400 Body mass index (BMI) [Ratio] 22.8 kg/m2 MD Isaac Reyes Work Phone: [facility] 01-20-2024 15:01-0400 Body weight 68.03 kg MD Isaac Reyes Work Phone: [facility] 01-20-2024 15:01-0400 Diastolic blood pressure 88 mm[Hg] MD Isaac Reyes Work Phone: [facility] 01-20-2024 15:01-0400 Heart rate 87 /min MD Isaac Reyes Work Phone: [facility] 01-20-2024 15:01-0400 Systolic blood pressure 131 mm[Hg] MD Isaac Reyes Work Phone: [facility] 10-19-2023 16:06-0500 Body height 170.2 cm Isaac Reyes MD Work Phone: [facility] 10-19-2023 16:06-0500 Body mass index (BMI) [Ratio] 23.96 kg/m2 Isaac Reyes MD Work Phone: [facility] 10-19-2023 16:06-0500 Body weight 69.4 kg Isaac Reyes MD Work Phone: [facility] 07-14-2023 11:09-0500 Diastolic blood pressure 75 mm[Hg] Cheko Barrientos MD Work Phone: [facility] 07-14-2023 11:09-0500 Systolic blood pressure 118 mm[Hg] Cheko Barrientos MD Work Phone: [facility] 07-14-2023 10:45-0500 Body height 170.2 cm Cheko Barirentos MD Work Phone: [facility] 07-14-2023 10:45-0500 Body mass index (BMI) [Ratio] 23.96 kg/m2 Cheko Barrientos MD Work Phone: [facility] 07-14-2023 10:45-0500 Body weight 69.4 kg Cheko Barrientos MD Work Phone: [facility] 07-14-2023 10:45-0500 Heart rate 88 /min Cheko Barrientos MD Work Phone: [facility] 07-23-2022 10:44-0500 Body height 167.64 cm Isaac Reyes Work Phone: [facility] 250 DO Work Phone: 07-23-2022 10:44-0500 Body mass index (BMI) [Ratio] 25.02 kg/m2 Isaac Reyes Work Phone: [facility] 250 DO Work Phone: 07-23-2022 10:44-0500 Body surface area Derived from formula 1.79 m2 Isaac Reyes Work Phone: [facility] 250 DO Work Phone: 07-23-2022 10:44-0500 Body weight 70.31 kg Isaac Reyes Work Phone: [facility] 250 DO Work Phone: 07-23-2022 10:44-0500 Diastolic blood pressure 64 mm[Hg] Isaac Reyes Work Phone: [facility] 250 DO Work Phone: 07-23-2022 10:44-0500 Heart rate 88 /min Isaac Reyes Work Phone: [facility] 250 DO Work Phone: 07-23-2022 10:44-0500 Systolic blood pressure 104 mm[Hg] Isaac Reyes Work Phone: [facility] 250 DO Work Phone: 07-17-2022 16:23-0500 61 1 Isaac Reyes Work Phone: [facility] 250 DO Work Phone: Comment on above: [facility] 05-02-2022 15:35-0400 Body height 167.64 cm Mesha Joe Other [employer] Other 05-02-2022 15:35-0400 Body mass index (BMI) [Ratio] 25.69 kg/m2 Mesha Joe Other [employer] Other 05-02-2022 15:35-0400 Body temperature 98.1 [degF] Mesha Joe Other [employer] Other 05-02-2022 15:35-0400 Body weight 72.21 kg Mesha Heath Other [employer] Other 05-02-2022 15:35-0400 Diastolic blood pressure 64 mm[Hg] Mesha Joe Other [employer] Other 05-02-2022 15:35-0400 Respiratory rate 18 /min Mesha Joe Other [employer] Other 05-02-2022 15:35-0400 SaO2% (BldA) [Mass fraction] 98 % Mesha Joe Other [employer] Other 05-02-2022 15:35-0400 Systolic blood pressure 113 mm[Hg] Mesha Heath Other [employer] Other 07-24-2021 11:20-0500 Body height 167.64 cm Isaac Reyes Work Phone: [facility] 250 DO Work Phone: 07-24-2021 11:20-0500 Body mass index (BMI) [Ratio] 25.5 kg/m2 Isaac Reyes Work Phone: [facility] 250 DO Work Phone: 07-24-2021 11:20-0500 Body surface area Derived from formula 1.81 m2 Isaac Reyes Work Phone: [facility] 250 DO Work Phone: 07-24-2021 11:20-0500 Body weight 71.67 kg Isaac Reyes Work Phone: [facility] 250 DO Work Phone: 07-24-2021 11:20-0500 Diastolic blood pressure 79 mm[Hg] Isaac Reyes Work Phone: [facility] 250 DO Work Phone: 07-24-2021 11:20-0500 Heart rate 85 /min Isaac Reyes Work Phone: [facility] 250 DO Work Phone: 07-24-2021 11:20-0500 Systolic blood pressure 125 mm[Hg] Isaac Reyes Work Phone: [facility] 250 DO Work Phone: 07-08-2021 00:00-0400 59 1 Isaac Reyes Work Phone: [facility] 250 DO Work Phone: Comment on above: FSLDL Encounters Encounter Date Encounter Type Care Provider Facility Start: 08-08-2024 End: 08-08-2024 BamOVGuideheet Zainab Lemon S3B MULTI SENSOR OPERATOR Work Phone: [facility] Start: 08-08-2024 End: 08-08-2024 Bamboo [employer]heet Zainab Lemon S3B MULTI SENSOR OPERATOR Work Phone: [facility] Start: 08-08-2024 End: 08-08-2024 Postop follow up visit related to original px Zainab Lemon S3B MULTI SENSOR OPERATOR Work Phone: [facility] Comment on above: Closed displaced fra cture of shaft of fifth metacarpal bone of right hand with routine healing, subsequent encounter Start: 08-08-2024 End: 08-08-2024 ambulatory ZAINAB LEMON Not Available Start: 07-28-2024 End: 07-28-2024 [employer] Kaila Ross S3B MULTI SENSOR OPERATOR Work Phone: [facility] Start: 07-28-2024 End: 07-28-2024 Bamboo flowsheet Kaila Ross S3B MULTI SENSOR OPERATOR Work Phone: [facility] Start: 07-28-2024 End: 07-28-2024 ambulatory KAILA ROSS Not Available Start: 07-28-2024 End: 07-28-2024 Postop follow up visit related to original px Kaila Ross S3B MULTI SENSOR OPERATOR Work Phone: [facility] Comment on above: Closed displaced fra cture of shaft of fifth metacarpal bone of right hand with routine healing, subsequent encounter (Primary Dx) Start: 07-22-2024 End: 07-22-2024 Bamboo flowsheet Ilya Orantes MD Work Phone: [facility] Start: 07-22-2024 End: 07-22-2024 Bamboo flowsheet Ilya Orantes MD Work Phone: [facility] Start: 07-22-2024 End: 07-22-2024 ambulatory ILYA ORANTES Not Available Start: 07-22-2024 End: 07-22-2024 Office outpatient visit 25 minutes Ilya Orantes MD Work Phone: [facility] Comment on above: Parkinson's disease without dyskinesia, unspecified whether manifestations fluctuate (CMS/HCC) (Primary Dx) Start: 07-20-2024 End: 07-20-2024 Refill Ilya Orantes MD Work Phone: [facility] Comment on above: Parkinson's disease with dyskinesia and fluctuating manifestations (CMS/HCC) Start: 07-20-2024 End: 07-20-2024 Telephone encounter Ilya Orantes MD Work Phone: [facility] 210 Start: 07-18-2024 End: 07-18-2024 Bamboo flowsheet Zainab Lemon S3B MULTI SENSOR OPERATOR Work Phone: [facility] Start: 07-18-2024 End: 07-18-2024 Bamboo flowsheet Zainab Deb Apling S3B MULTI SENSOR OPERATOR Work Phone: [facility] Start: 07-18-2024 End: 07-18-2024 Postop follow up visit related to original px Zainab B Apling S3B MULTI SENSOR OPERATOR Work Phone: [facility] Comment on above: Closed displaced fra cture of shaft of fifth metacarpal bone of right hand with routine healing, subsequent encounter (Primary Dx) Start: 07-18-2024 End: 07-18-2024 ambulatory ZAINAB B APLING Not Available Start: 07-14-2024 End: 07-14-2024 Office outpatient visit 25 minutes Cheko Barrientos MD Work Phone: [facility] Comment on above: Atherosclerosis of n ative coronary artery of [place] heart without angina pectoris (Primary Dx); S/P coronary angioplasty; Mixed hyperlipidemia; BMI 23.0-23.9, adult; Former smoker; At risk for falls; Memory loss; Parkinson's disease without dyskinesia or fluctuating manifestations Start: 07-14-2024 End: 07-14-2024 ambulatory CHEKO [facility] Amb[facility] Start: 06-22-2024 End: 06-22-2024 Bamboo flowsheet Zainab B Apling S3B MULTI SENSOR OPERATOR Work Phone: [facility] Start: 06-22-2024 End: 06-22-2024 Bamboo flowsheet Zainab Deb Apling S3B MULTI SENSOR OPERATOR Work Phone: [facility] Start: 06-22-2024 End: 06-22-2024 Telephone encounter Mira Saravia S3B MULTI SENSOR OPERATOR Work Phone: [facility] Start: 06-22-2024 End: 06-22-2024 Postop follow up visit related to original px Zainab B Apling S3B MULTI SENSOR OPERATOR Work Phone: [facility] Comment on above: Closed displaced fra cture of shaft of fifth metacarpal bone of right hand with routine healing, subsequent encounter (Primary Dx) Start: 06-22-2024 End: 06-22-2024 ambulatory ZAINAB B APLING Not Available Start: 06-20-2024 End: 06-20-2024 Office outpatient new 45 minutes Zainab Lemon S3B MULTI SENSOR OPERATOR Work Phone: [facility] Comment on above: Right hand pain (Amy moon Dx); Displaced fracture of shaft of fifth metacarpal bone, right hand, initial encounter for closed fracture Start: 06-20-2024 End: 06-20-2024 ambulatory ZAINAB LEMON Not Available Start: 06-17-2024 End: 06-17-2024 ambulatory Madeline Ramirez Jeffry Facility:[facility] Start: 06-17-2024 End: 06-17-2024 Patient encounter procedure MD Isaac Reyes Work Phone: [facility] [place] Work Phone: Start: 04-16-2024 End: 04-16-2024 ambulatory ILYA ORANTES Not Available Start: 03-31-2024 End: 03-31-2024 Patient encounter procedure MD Isaac Reyes Work Phone: [facility] Work Phone: Start: 03-31-2024 End: 03-31-2024 ambulatory MD Isaac Reyes Work Phone: [facility] Work Phone: Start: 03-25-2024 End: 03-25-2024 Patient encounter procedure MD Isaac Reyes Work Phone: [facility] Work Phone: Start: 03-25-2024 End: 03-25-2024 ambulatory MD Isaac Reyes Work Phone: [facility] Work Phone: Start: 02-19-2024 Non-patient / Non-visit MD Tae Reyes Work Phone: [facility] Work Phone: Start: 02-19-2024 End: 02-19-2024 Admission to same day surgery center MD Isaac Reyes Work Phone: [facility] Work Phone: Start: 02-19-2024 End: 02-19-2024 ambulatory MD Isaac Reyes Work Phone: [facility] Work Phone: Start: 02-05-2024 End: 02-05-2024 ambulatory ILYA ORANTES Not Available Start: 01-20-2024 End: 01-20-2024 Patient encounter procedure MD Isaac Reyes Work Phone: [facility] Work Phone: Start: 10-21-2023 Telephone encounter Rachael Hernandez MA [facility] Comment on above: Care Coordination Start: 10-19-2023 End: 10-21-2023 ambulatory ISAAC REYES Not Available Start: 10-19-2023 End: 10-21-2023 Office outpatient visit 15 minutes Isaac Reyes MD Work Phone: [facility] Comment on above: Bright red rectal bl eeding (Primary Dx); Chronic constipation; Parkinson's disease without dyskinesia, unspecified whether manifestations fluctuate Start: 10-19-2023 Bamboo flowsheet Isaac kong MD Work Phone: [facility] Start: 10-19-2023 Bamboo flowsheet Isaac kong MD Work Phone: [facility] Start: 09-24-2023 End: 09-24-2023 ambulatory ISAAC REYES Not Available Start: 09-08-2023 End: 09-08-2023 ambulatory COLLIN HENRY Not Available Start: 07-14-2023 End: 07-14-2023 Office outpatient visit 25 minutes Cheko Barrientos MD Work Phone: [facility] Comment on above: Atherosclerosis of n ative coronary artery of [place] heart without angina pectoris; S/P coronary angioplasty; Hyperlipidemia, unspecified hyperlipidemia type Start: 07-23-2022 Office outpatient vi sit 25 minutes Isaac Reyes Work Phone: [facility] 250 DO Work Phone: Start: 07-23-[address] Cheko Barrientos Facility: Start: 07-14-2022 Telephone encounter Isaac Vidal Sangita monoarlenedino Work Phone: [facility] 250 DO Work Phone: Start: 05-02-2022 End: 05-02-2022 ambulatory Mesha Joe Other [facility] [employer] Other Start: 05-02-2022 Office outpatient ne w 20 minutes Mesha Joe [facility] [place] Start: 07-30-2021 Rx Renewal Isaac Gordillo er Work Phone: [facility] [address] [place] Work Phone: Start: 07-24-2021 Patient encounter procedure Isaac Romanoluann Work Phone: [facility] 250 DO Work Phone: Start: 09-07-2019 End: 10-06-2019 Patient encounter procedure [facility] Facility: Start: 07-27-2019 End: 09-06-2019 Patient encounter procedure [facility] Facility: Start: 07-09-2019 End: 07-09-2019 Patient encounter procedure [facility] Facility: Start: 04-27-2019 End: 04-27-2019 Patient encounter procedure ESHA ZEPEDA Facility: Procedures Date Procedure Procedure Detail Performing Clinician Start: 08-08-2024 Radex hand minimum 3 views Zainab Lemon S3B MULTI SENSOR OPERATOR Work Phone: Start: 07-18-2024 Radex hand minimum 3 views Zainab Lemon S3B MULTI SENSOR OPERATOR Work Phone: Start: 06-17-2024 Plain X-ray of right hand MD Isaac Reyes Work Phone: Start: 03-31-2024 Ultrasound elastogra phy of liver MD Isaac Reyes Work Phone: Start: 03-25-2024 Dual energy X-ray absorptiometry MD Isaac Reyes Work Phone: Start: 02-19-2024 Colonoscopy MD Isaac Reyes Work Phone: Cataract surgery Isaac Young Gomez lopez Work Phone: Tonsillectomy Naintwin Romanojosé er Work Phone: Tooth extraction Isaac Vidal Jason lopez Work Phone: Total colonoscopy Isaac venegas Work Phone: Comment on above: [id number]; Plan of Treatment Date Care Activity Detail Author Start: 07-18-2025 End: 07-18-2025 Patient encounter procedure 07/18/2025 10:00 AM EST Office Visit [facility] [address] [facility] [address] [place] [address] Cheko Barrientos MD [address] [facility] [address] [place] [address] [facility] Start: 11-18-2024 End: 11-18-2024 Patient encounter procedure 11/18/2024 11:10 AM EDT Office Visit [facility] [address] [place] [address] Ilya Orantes MD [address] [id number] [facility] Start: 09-12-2024 End: 09-12-2024 Patient encounter procedure 09/12/2024 10:15 AM EST Office Visit [facility] [address] [facility] [address] [place] [id number] Zainab Lemon NP [address] [place] [address] [facility] Start: 08-08-2024 End: 08-08-2024 Patient encounter procedure [facility] Comment on above: Closed displaced fracture of shaft of fi fth metacarpal bone of right hand with routine healing, subsequent encounter Start: 07-22-2024 End: 07-22-2024 Patient encounter procedure 07/22/2024 11:10 AM EST Office Visit [facility] [address] [facility] [address] [place] [phone] Ilya Orantes MD [address] [facility] [address] [place] [address] [id number] [facility] Start: 07-18-2024 End: 07-18-2024 Patient encounter procedure 07/18/2024 11:30 AM EST Office Visit [facility] [address] [facility] [address] [place] [id number] Zainab Lemon S3B MULTI SENSOR OPERATOR [address] [place] [address] [facility] Start: 07-14-2024 End: 07-14-2025 Alanine aminotransferase [Enzymatic activity/volume] in Serum or Plasma by With P-5'-P Alanine Aminotransferase Lab Routine Mixed hyperlipidemia Expected: 07/14/2024 (Approximate), Expires: 07/14/2025 [facility] Service Area Work Phone: Comment on above: Expected: 07/14/2024 (Approximate), Expi res: 07/14/2025 Start: 07-14-2024 End: 07-14-2025 Aspartate aminotransferase [Enzymatic activity/volume] in Serum or Plasma by With P-5'-P Aspartate Aminotransferase Lab Routine Mixed hyperlipidemia Expected: 07/14/2024 (Approximate), Expires: 07/14/2025 [facility] Work Phone: Comment on above: Expected: 07/14/2024 (Approximate), Expi res: 07/14/2025 Start: 07-14-2024 End: 07-14-2025 Basic metabolic 2000 panel - Serum or Plasma Basic Metabolic Panel Lab Routine 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 without angina pectoris S/P coronary angioplasty Mixed hyperlipidemia Expected: 07/14/2024 (Approximate), Expires: 07/14/2025 [facility] Work Phone: Comment on above: Expected: 07/14/2024 (Approximate), Expi res: 07/14/2025 Start: 07-14-2024 End: 07-14-2025 CBC panel - Blood by Automated count CBC Lab Routine 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 without angina pectoris S/P coronary angioplasty Mixed hyperlipidemia Expected: 07/14/2024 (Approximate), Expires: 07/14/2025 [facility] Work Phone: Comment on above: Expected: 07/14/2024 (Approximate), Expi res: 07/14/2025 Start: 07-14-2024 End: 07-14-2025 Lipid 1996 panel - Serum or Plasma Lipid Panel Lab Routine Mixed hyperlipidemia Expected: 07/14/2024 (Approximate), Expires: 07/14/2025 [facility] Work Phone: Comment on above: Expected: 07/14/2024 (Approximate), Expi res: 07/14/2025 Start: 06-22-2024 End: 06-22-2024 Patient encounter procedure 06/22/2024 10:45 AM EDT Office Visit [facility] [address] [place] [phone] Zainab Lemon NP [address] [place] [address] Arrived [facility] Comment on above: Arrived Start: 06-17-2024 Patient referral [facility] Work Phone: Start: 05-08-2024 COVID-19 Vaccine ( season) COVID-19 Vaccine ( season) [facility] Start: 05-08-2024 Influenza vaccination Influenza Vaccine (#1) [facility] Start: 03-31-2024 [facility] Start: 03-06-2024 Influenza vaccination Influenza Vaccine (#1) [facility] Comment on above: Postponed from 05/08/2023 (Patient Refus ed) Start: 02-19-2024 [facility] Start: 12-09-2023 End: 12-09-2023 Patient encounter procedure 12/09/2023 11:30 AM EDT Office Visit [facility] [address] [facility] [place] [address] Isaac Reyes MD [address] [facility] [place] [address] [facility] Start: 07-14-2023 FUV, Provider: Cheko Barrientos, Status: Pen, Time: 10:30 AM FUV, Provider: Cheko Barrientos, Status: Pen, Time: 10:30 AM [facility] DO Work Phone: Start: 05-08-2023 Influenza vaccination Influenza Vaccine (#1) [facility] Start: 07-23-2022 FUV, Provider: Cheko Barrientos, Status: Pen, Time: 11:00 AM FUV, Provider: Cheko Barrientos, Status: Pen, Time: 11:00 AM [facility]-[address] 250 DO Work Phone: Start: 2022 RSV High Risk: (Elderly (60+) or Population) (1 - 1-dose 75+ series) RSV High Risk: (Elderly (60+) or Population) (1 - 1-dose 75+ series) [facility] Start: 09-16-2016 Pneumococcal Vaccine: 65+ Years (2 - PPSV23 or PCV20) Pneumococcal Vaccine: 65+ Years (2 - PPSV23 or PCV20) [facility] Start: 09-16-2016 Pneumococcal Vaccine: 65+ Years (2 of 2 - PPSV23 or PCV20) Pneumococcal Vaccine: 65+ Years (2 of 2 - PPSV23 or PCV20) [facility] Start: 1997 Zoster Vaccines (1 of 2) Zoster Vaccines (1 of 2) [facility] Start: 1969 DTaP/Tdap/Td Vaccines (1 - Tdap) DTaP/Tdap/Td Vaccines (1 - Tdap) [facility] Start: 1965 Hepatitis C screening Hepatitis C Screening [facility] Start: 1947 COVID-19 Vaccine (#1) COVID-19 Vaccine (#1) [facility] Start: 1947 Lipid panel Lipid Panel [facility] Start: 1947 Yearly Adult Physical Yearly Adult Physical [facility] Bacteria identified in Stool by Culture [facility] CT Abdomen and Pelvi s W contrast IV [facility] Patient Education Hemorrhoids (D C) Know your Meds [facility] Work Phone: Patient referral [facility] Work Phone: [facility] Immunizations Immunization Date Immunization Notes Care Provider Jasmin souza 07-22-2016 pneumococcal conjuga te vaccine, 13 valent Isaac Vidal Hemeyer Work Phone: -[facility] DO Work Phone: Comment on above: Series: Payers Date Payer Category Payer Self-pay [id number] 2023 Private Health Insurance [id number] 2020 Unknown 2018 Medicare [id number] 1959 Unknown [id number] 1947 Unknown [id number] [id number]3 1947 Unknown [id number] 2.16.840.1.168223.3.579.2.593 1947 Unknown [id number] 2.16.840.1.556625.3.579.2.593 1947 Unknown [id number] 2.16.840.1.854920.3.579.2.593 1947 Unknown [id number] 2.16.840.1.478541.3.579.2.356 1947 Unknown [id number] 2.16.840.1.319666.3.579.2.124 4 1947 Unknown [id number] 2.16.840.1.370274.3.579.2.125 9 1947 Unknown [id number] 2.16.840.1.289525.3.579.2.125 9 1947 Unknown [id number] 2.16.840.1.671741.3.579.2.125 9 1947 Unknown [id number] 2.840.1.188826.3.579.2.125 9 1947 Unknown [id number] 2.16.840.1.796973.3.579.2.125 9 1947 Unknown [id number] 2.16.840.1.108117.3.579.2.125 9 1947 Unknown [id number] 2.16.840.1.216381.3.579.2.125 9 1947 Unknown [id number] 2.16.840.1.665069.3.579.2.125 9 1947 Unknown [id number] 2.16.840.1.222234.3.579.2.125 9 1947 Unknown [id number] 2.16.840.1.476809.3.579.2.125 9 1947 Unknown [id number] 2.16.840.1.871246.3.579.2.125 9 1947 Unknown [id number] 2.16.840.1.610805.3.579.2.125 9 1947 Unknown [id number] 2.16.840.1.974155.3.579.2.125 9 Medicare [id number] 2.16.840.1.512806.19 Unknown [id number] 2.16.840.1.978670.19 Unknown MMO [employer] [id number] Unknown HCAP/HFA/FAP Active [id number] Unknown [id number] 2.16.840.1.644505.3.579.2.531 Unknown [id number] 2.16.840.1.074593.3.579.2.531 Unknown [id number] 2.16.840.1.986407.3.579.2.531 Unknown [id number] 2.16.840.1.635341.3.579.2.531 Social History Date Type Detail Facility Start: 07-13-2023 End: 09-24-2023 Rarely consumes alcohol Rarely consumes alcohol -[facility] DO Work Phone: Comment on above: quit 1971 1 pack per week x 5 years; Start: 07-13-2023 End: 09-24-[address] [facility] [employer] Other Start: 07-13-2023 End: 02-19-2024 Tobacco smoking status NHIS Ex-smoker [facility] Work Phone: History of tobacco use Current smoker [facility] Work Phone: History of tobacco use Cigarette Smoker [facility] Work Phone: Start: 07-13-2023 End: 07-21-2023 Tobacco use and exposure Smokeless tobacco non-user [facility] Work Phone: Start: 07-14-2023 End: 07-14-2024 Alcohol intake Lifetime non-drinker (finding) [facility] Work Phone: Start: 1945 Sex Assigned At Not on file [facility] Work Phone: Start: 07-04-2023 End: 07-14-2024 Exposure to SARS-CoV-2 (event) Not sure [facility] Start: 07-21-2023 Tobacco smoking status NHIS Never smoked tobacco [facility] Start: 09-24-2023 End: 08-08-2024 Alcohol intake Ex-drinker (finding) [facility] Start: 1945 Sex Assigned At Male [facility] NEGATED: Highlighted row Denies Caffeine use Denies Caffeine use -[facility] 250 DO Work Phone: Comment on above: Coke occasionally; Goals Date Patient Goal Desired Activity /State Clinical Notes 05-02-2022 to 08-08-2024 Zainab Lemon NP - 08/08/2024 10:30 AM Oracio Ross NP - 07/28/2024 10:45 AM Pablo Daniel MA - 07/22/2024 11:10 AM ESTAddendum Note - Ilya Orantes MD - 07/20/2024 2:35 PM EST Note Date & Type Note Facility 08-08-2024 History of Present illness Narrative Images from the original note were not included. Subjective Patient ID: Thony Bryant is a 79 y.o. male. RT Hand fx DOI 06/09/24 Pt is RT handed *cast off and xrays Presents in MC block cast, denies issues with cast. 8 weeks and 4 days s/p 5th MC fracture. Pt fell around 06/09/24 and started having pain and swelling at the base of his 4th and 5th digits. Pt has a hx of Parkinsons and frequent falls. notes he falls at least once a month. Went to [facility] and had xrays on 06/17/24 revealing a fracture of the 5th MC and was placed in an OCL plaster splint and hand was wrapped with 2 todd wraps and was referred to ortho. Has never injured this hand in the past. notes he also cut his LT hand when he fell and had some LT hand pain, but he is not having issues with it anymore. Denies pain in hand unless he bumps it. No pain meds. Denies N/T. Denies swelling in fingers. Does not wake at HS. Pain is 0/10 today. Difficulty eating due to being RT handed. TX: [facility]/XR RT hand 06/17/24, splint, MC block cast 06/20/24, XR NOMS 07/18/24, XR NOMS 08/08/24 Here with his Juliana Objective Nv intact, no skin breakdown from the cast, MC block removed, trace swelling, pain to firm palpation XR hand 3+ views right Imaging Result: Imaging Result: Multiple views of right hand showed fracture through the Shaft of the fifth metacarpal to be in unchanged position and alignment with increased callus formation at the fracture site compared to prior x-ray. There was no other acute bony process including but not limited to separate fracture and/or dislocation. Impression: Healing fracture Shaft of Right fifth metacarpal Assessment/Plan Encounter Diagnoses: ICD-10-CM 1. Closed displaced fracture of shaft of fifth metacarpal bone of right hand with routine healing, subsequent encounter S62.326D XR hand 3+ views right Discussed fracture care and treatment. Answered all questions. Also discussed risks for non union. F/U in 3-4 weeks with xrays Ortho Exam documented in this encounter [facility] 07-28-2024 History of Present illness Narrative Images from the original note were not included. Chief Complaint Patient presents with Right Hand - Follow-up HISTORY OF PRESENT ILLNESS: Thony Bryant is an 79 y.o. @ male. *Unscheduled* Est w/Moon. Cast issue. Cast applied 07/18 (1 week 3 days). RT Hand fx DOI 06/09/24 Pt is RT handed Presents in MC block cast, rubbing near thumb. Denies any other issues with cast. 7 weeks s/p 5th MC fracture Pt fell around 06/09/24 and started having pain and swelling at the base of his 4th and 5th digits. Pt has a hx of Parkinsons and frequent falls. notes he falls at least once a month. Went to [facility] and had xrays on 06/17/24 revealing a fracture of the 5th MC and was placed in an OCL plaster splint and hand was wrapped with 2 todd wraps and was referred to ortho. Has never injured this hand in the past. notes he also cut his LT hand when he fell and had some LT hand pain, but he is not having issues with it anymore. Pain only with movements of thumb due to rubbing. Denies pain in hand or wrist. Taking motrin. Denies N/T, swelling. Wakes pt at HS. TX: [facility]/XR RT hand 06/17/24, splint, MC block cast 06/20/24, XR NOMS 07/18/24, MC block cast 07/18/24 Here with his Juliana ALLERGIES: No Known Allergies HOME MEDICATIONS: Current Outpatient Medications Medication Instructions amantadine (SYMMETREL) 100 mg, Oral, 2 times daily (04/18) atorvastatin (LIPITOR) 40 mg, Every 24 hours carbidopa-levodopa (Sinemet) 25-100 MG tablet 0.5 tablets, Oral, 3 times daily carbidopa-levodopa CR (Sinemet CR) 50-200 MG ER tablet 1.5 tablets orally upon arising in the AM and then again in 6 to 8 hours cyanocobalamin (VITAMIN B-12) 500 mcg, Daily ibuprofen 200 mg, Daily PRN Multiple Vitamin (multivitamin) tablet 1 tablet, Daily nitroglycerin (NITROSTAT) 0.4 mg, As needed Polyethylene Glycol 3350 (MIRALAX PO) Take by mouth Polyvinyl Alcohol-Povidone (REFRESH OP) Administer into affected eye(s) selegiline (ELDEPRYL) 5 mg, Oral, 2 times daily with meals PHYSICAL EXAM: Hand/Wrist Musculoskeletal Exam Inspection Right Right hand/wrist inspection is normal. Erythema: none Inspection additional comments: CAST WELL FITTING AND IN GOOD REPAIR, SOME RUBBING AT THENAR WEBBING BUT NO ABRASIONS. EXPOSED COMPARMENTS SOFT WITH PAINLESS PROM/AROM OF DIGITS: Palpation Palpation additional comments: PAIN AT ANTERIOR THUMB FROM RUBBING ON CAST Range of Motion Range of motion additional comments: PT MOTORS EXPOSED DIGITS WITH ROM LIMITED IN CAST Neurovascular Right Right neurovascular exam is normal. Capillary refill: <3 sec Neurovascular additional comments: NEUROVASC INTACT Vitals: There is no height or weight on file to calculate BMI. IMAGING: ASSESSMENT: ICD-10-CM 1. Closed displaced fracture of shaft of fifth metacarpal bone of right hand with routine healing, subsequent encounter S62.326D Procedures PLAN: I trimmed patients cast in the office today and provided patient with some moleskin to help decrease rubbing from cast. Patient states cast feels better after trimming and moleskin application. He will follow up with Zainab on 08/08. Questions answered in laymen terms at the bedside. The diagnosis, home exercise plan and any ongoing restrictions/ recommendations reviewed. If unable to be reached in office, I recommend evaluation at nearest Emergency Room if any symptoms worsened or new symptoms develop for requiring urgent evaluation. Kaila Ross MEDIEVAL ENGLISH LITERATURE PROFESSOR-VICE PRESIDENT [employer] documented in this encounter [facility] 07-22-2024 History of Present illness Narrative Images from the original note were not included. CHIEF COMPLAINT REASON FOR VISIT: Parkinsons, tremors HPI: Thony Bryant is a 79 y.o. male who presents for a follow up. He states he has not any tremors. Balance has been all over. He has had 1 fall. He does have cast on right hand. He is up and down all night due to having to go to the bathroom. He states appetite is good. No change sin taste or smell. No difficulty in swallowing. He does have some forgetfulness according to spouse but nothing new CURRENT MEDICATIONS: ALLERGIES/DISCONTINUE MEDICATIONS Current Outpatient Medications Medication Instructions amantadine (SYMMETREL) 100 mg, Oral, 2 times daily (04/18) atorvastatin (LIPITOR) 40 mg, Every 24 hours carbidopa-levodopa (Sinemet) 25-100 MG tablet 0.5 tablets, Oral, 3 times daily carbidopa-levodopa CR (Sinemet CR) 50-200 MG ER tablet 1.5 tablets orally upon arising in the AM and then again in 6 to 8 hours cyanocobalamin (VITAMIN B-12) 500 mcg, Daily ibuprofen 200 mg, Daily PRN Multiple Vitamin (multivitamin) tablet 1 tablet, Daily nitroglycerin (NITROSTAT) 0.4 mg, As needed Polyethylene Glycol 3350 (MIRALAX PO) Take by mouth Polyvinyl Alcohol-Povidone (REFRESH OP) Administer into affected eye(s) selegiline (ELDEPRYL) 5 mg, Oral, 2 times daily with meals No Known Allergies There are no discontinued medications. PAST MEDICAL HISTORY: SURGICAL/SOCIAL/FAMILY HISTORY DEPRESSION SCREEN: Past Medical History: Diagnosis Date CAD (coronary artery disease) ([facility]/HCC) 2010 Dr. Todd Elevated cholesterol ([facility]/HCC) H/O heart artery stent Heart disease High cholesterol ([facility]/HCC) Past Surgical History: Procedure Laterality Date CAPSULOTOMY Bilateral Yag Cap CATARACT EXTRACTION Bilateral 2018 [place] COLONOSCOPY 04/27/2019 CORONARY ANGIOPLASTY WITH STENT PLACEMENT 2010 OTHER SURGICAL HISTORY stents OTHER SURGICAL HISTORY YAG OU TONSILLECTOMY Social History Tobacco Use Smoking status: Never Smokeless tobacco: Never Substance Use Topics Alcohol use: Not Currently Family History Problem Relation Name Age of Onset Heart disease Father Hypertension Father No Known Problems Sister Brain cancer Brother Colon cancer Brother No Known Problems Daughter No Known Problems Son Depression: Not at risk (09/24/2023) PHQ-2 PHQ-2 Score: 0 REVIEW OF SYMPTOMS: Review of Systems Constitutional: Negative for chills, diaphoresis, fatigue and fever. HENT: Negative for ear pain, tinnitus and trouble swallowing. Eyes: Negative for photophobia and visual disturbance. Respiratory: Negative for cough and shortness of breath. Cardiovascular: Negative for palpitations and leg swelling. Gastrointestinal: Negative for abdominal pain and nausea. Genitourinary: Negative for difficulty urinating and urgency. Musculoskeletal: Positive for gait problem. Negative for arthralgias, back pain, myalgias, neck pain and neck stiffness. Neurological: Negative for tremors, weakness, light-headedness and numbness. Psychiatric/Behavioral: Negative for agitation, confusion and suicidal ideas. OBJECTIVE: 07/22/2024 11:23 AM 04/16/2024 11:22 AM 02/05/2024 12:39 PM Vitals BMI 23.49 kg/m2 22.71 kg/m2 22.87 kg/m2 BSA (m2) 1.79 m2 1.76 m2 1.77 m2 Systolic 120 102 Diastolic 76 78 Height (in) 5' 7 5' 7 5' 7 Weight (lb) 150 145 146 Visit Report Report Report Report EXAM: Neurological Exam PROCEDURE: NONE ASSESSMENT AND PLAN: Thony Bryant is a 78 y.o.male who presents with bilateral hand tremors. Possible etiologies include benign essential tremor, extrapyramidal symptoms secondary to medications, or a neurodegenerative process such as Parkinson's disease. An additional consideration would be tremor secondary to a metabolic process or a psychogenic tremor from stress. Diagnoses and all orders for this visit: Parkinson's disease without dyskinesia, unspecified whether manifestations fluctuate (CMS/HCC) Continue Amantadine 100 mg BID Continue Selegiline 5 mg BID Continue Sinemet 0.5 [id number] TID Continue Sinemet 1.5 tablet 50-200 mg in AM and 1.5 6-8 hours later I counseled the patient on the possible side effects and interactions of medications. Total time 20 minutes spent reviewing records, performing medically appropriate exam, counseling , education, ordering medication, tests, and/or procedures, documenting health information into the health record, communicating results to the patient, and coordinating care. Follow up 3-4 months. documented in this encounter [facility] 07-20-2024 Note Addended by: ILYA ORANTES on: 07/20/2024 02:35 PM Modules accepted: Orders [facility] 07-20-2024 Miscellaneous Notes Addended by: ILYA ORANTES on: 07/20/2024 02:35 PM Modules accepted: Orders Voicemail Received: Refill request of Selegiline 5mg to [facility]. documented in this encounter [facility] 07-20-2024 Telephone encounter Note Voicemail Received: Refill request of Selegiline 5mg to [facility]. [facility] 07-18-2024 History of Present illness Narrative Images from the original note were not included. Subjective Patient ID: Thony Bryant is a 79 y.o. male. RT Hand fx DOI 06/09/24 Pt is RT handed Presents in MC block cast, denies issues with cast, removed today. 5 weeks and 4 days s/p 5th MC fracture Pt fell around 06/09/24 and started having pain and swelling at the base of his 4th and 5th digits. Pt has a hx of Parkinsons and frequent falls. notes he falls at least once a month. Went to [facility] and had xrays on 06/17/24 revealing a fracture of the 5th MC and was placed in an OCL plaster splint and hand was wrapped with 2 todd wraps and was referred to ortho. Has never injured this hand in the past. notes he also cut his LT hand when he fell and had some LT hand pain, but he is not having issues with it anymore. Denies pain at rest. Pain at worst 6-7/10 if he bumps it and if he puts pressure on his hand getting out of a chair. He will get pain dorsum of hand ulnar aspect. Denies N/T. Swelling in his fingers has resolved. Admits IBU as needed with relief. Denies ice, heat or creams. Admits waking at night depending how he lays. TX: [facility]/XR RT hand 06/17/24, splint, MC block cast 06/20/24, XR NOMS 07/18/24 Here with his Juliana Objective Nv intact, no skin breakdown from the cast, MC block removed, trace swelling Assessment/Plan Encounter Diagnoses: ICD-10-CM 1. Closed displaced fracture of shaft of fifth metacarpal bone of right hand with routine healing, subsequent encounter S62.326D XR hand 3+ views right 2 rolls MC block cast applied, f/U in 3 weeks with xrays and cast off Discussed fracture care and treatment. Answered all questions. Also discussed risks for non union. reviewed with the patient cast care and signs and symptoms of complications including but not limited to cellulitis and compartment syndrome and what to do it they occur. The patient is advised to seek medical attention or call if they occur. reviewed with the patient cast care and signs and symptoms of complications and what to do if any occur. The patient is advised to seek medical attention or call if any problems or concerns. documented in this encounter [facility] 07-14-2024 History of Present illness Narrative Subjective Thony Bryant is a 79 y.o. male Chief Complaint Annual Exam HPI Patient is in the office for follow-up for coronary disease and previous coronary stenting, he came with his . Since his last visit he had recent fall leading to fracture of his right hand and he has a cast on. His indicated that these events occur because he becomes hypertensive even though he is not on medical therapy to lower blood pressure. There may be an element of dehydration. He does have Parkinson's disease on Sinemet which also a contributing factor to autonomic dysfunction and it can lead to falls. His pressure was in the upper normal range in the office today. He is in need for blood work which is requested and paperwork was supplied. Medical therapy has been well-tolerated. Examination was unremarkable. ASSESSMENT AND PLAN: 1. Coronary artery disease status post percutaneous coronary intervention of the LAD and the right coronary artery in 2009 with no indication of recurrent disease and with controlled risk factors. His last stress test was normal in 2010. Currently there is no indication for cardiac investigations 2. Hyperlipidemia, on medical therapy with statin under excellent control, due for lipid profile and liver function test which was ordered 3. tremor being treated by Neurology using amantadine and Sinemet with success. There may be an element of Parkinson's disease 4. Dementia that is stable and not disturbing. 5. Recurrent falls due to possible autonomic dysfunction from Parkinson's disease. Education to prevent falls was provided Review of Systems All other systems reviewed and are negative. Vitals: 07/14/24 1036 07/14/24 1052 BP: 140/90 136/86 BP Location: Left arm Left arm Patient Position: Sitting Sitting Pulse: 72 Weight: 67.6 kg (149 lb) Height: 1.702 m (5' 7 ) Objective Physical Exam Constitutional: Appearance: Normal appearance. HENT: Nose: Nose normal. Neck: Vascular: No carotid bruit. Cardiovascular: Rate and Rhythm: Normal rate. Pulses: Normal pulses. Heart sounds: Normal heart sounds. Pulmonary: Effort: Pulmonary effort is normal. Abdominal: General: Bowel sounds are normal. Palpations: Abdomen is soft. Musculoskeletal: General: Normal range of motion. Cervical back: Normal range of motion. Right lower leg: No edema. Left lower leg: No edema. Skin: General: Skin is warm and dry. Neurological: General: No focal deficit present. Mental Status: He is alert. Psychiatric: Mood and Affect: Mood normal. Behavior: Behavior normal. Thought Content: Thought content normal. Judgment: Judgment normal. Allergies Patient has no known allergies. Current Medications Current Outpatient Medications: amantadine (Symmetrel) 100 mg tablet, Take 1 tablet (100 mg) by mouth 2 times a day., Disp: , Rfl: atorvastatin (Lipitor) 40 mg tablet, Take 1 tablet (40 mg) by mouth once daily., Disp: 90 tablet, Rfl: 3 carbidopa-levodopa (Sinemet CR) 50-200 mg ER tablet, Take 1 tablet by mouth 2 times a day. Do not crush or chew., Disp: , Rfl: carbidopa-levodopa (Sinemet) 25-100 mg tablet, Take 0.5 tablets by mouth 3 times a day., Disp: , Rfl: docusate sodium (Stool Softener) 100 mg tablet, Take 1 tablet (100 mg) by mouth 2 times a day., Disp: , Rfl: ibuprofen (Advil Liqui-GeL) capsule, Take by mouth once daily., Disp: , Rfl: nitroglycerin (Nitrostat) 0.4 mg SL tablet, Place 1 tablet (0.4 mg) under the tongue every 5 minutes if needed for chest pain., Disp: 25 tablet, Rfl: 11 sennosides (Laxative Maximum Strength) 25 mg tablet, Take 1 tablet (25 mg) by mouth 3 times a day., Disp: , Rfl: tetrahydrozoline 0.05 % ophthalmic solution, Administer 1 drop into both eyes once daily., Disp: , Rfl: Assessment/Plan 1. 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 without angina pectoris Follow Up In Cardiology Follow Up In Cardiology Basic Metabolic Panel CBC Basic Metabolic Panel CBC 2. S/P coronary angioplasty Follow Up In Cardiology Basic Metabolic Panel CBC Basic Metabolic Panel CBC 3. Mixed hyperlipidemia Alanine Aminotransferase Aspartate Aminotransferase Lipid Panel Basic Metabolic Panel CBC Alanine Aminotransferase Aspartate Aminotransferase Lipid Panel Basic Metabolic Panel CBC 4. BMI 23.0-23.9, adult 5. Former smoker 6. At risk for falls 7. Memory loss 8. Parkinson's disease without dyskinesia or fluctuating manifestations Scribe Attestation By signing my name below, I, Smitha Killian DAVID , Scribe attest that this documentation has been prepared under the direction and in the presence of Cheko Barrientos MD. Provider Attestation - Scribe documentation All medical record entries made by the Scribe were at my direction and personally dictated by me. I have reviewed the chart and agree that the record accurately reflects my personal performance of the history, physical exam, discussion and plan. documented in this encounter [facility] Work Phone: 07-14-2024 Instructions Smitha Cartwright LPN - 07/14/2024 10:30 AM EST Please bring all medicines, vitamins, and herbal supplements with you when you come to the office. Prescriptions will not be filled unless you are compliant with your follow up appointments or have a follow up appointment scheduled as per instruction of your physician. Refills should be requested at the time of your visit. Fall Prevention Education Given documented in this encounter [facility] Work Phone: 06-22-2024 Telephone encounter Note Sent. Not sure why someone discontinued medication on 06/20. Different office staff did. [facility] 06-22-2024 Miscellaneous Notes Sent. Not sure why someone discontinued medication on 06/20. Different office staff did. Patient's called to request new prescription for Amantadine to be sent to [facility] in [place]. documented in this encounter [facility] 06-22-2024 Telephone encounter Note Patient's called to request new prescription for Amantadine to be sent to [facility] in [place]. [facility] 06-22-2024 History of Present illness Narrative Images from the original note were not included. Subjective Patient ID: Thony Bryant is a 79 y.o. male. RT Hand fx DOI 06/09/24 Pt is RT handed *unscheduled* cast issue Presents in MC block cast applied 2 days ago (06/20/24). Notes the cast is rubbing around his thumb. Cast trimmed around his thumb today. Pt fell around 06/09/24 and started having pain and swelling at the base of his 4th and 5th digits. Pt has a hx of Parkinsons and frequent falls. notes he falls at least once a month. Went to [facility] and had xrays on 06/17/24 revealing a fracture of the 5th MC and was placed in an OCL plaster splint and hand was wrapped with 2 todd wraps and was referred to ortho. Has never injured this hand in the past. notes he also cut his LT hand when he fell and had some LT hand pain, but he is not having issues with it anymore. Denies pain at rest. Pain at worst 8/10 with certain movements and if he puts pressure on his hand. He gets pain ulnar side of wrist and hand. Denies N/T. Admits swelling in fingers. Admits IBU occas. Denies ice, heat or creams. Admits waking at night depending how he lays. TX: [facility]/XR RT hand 06/17/24, splint, MC block cast 06/20/24 Here with his Juliana Objective Nv intact, no skin breakdown from the cast, there is some rubbing of the thumb between the thumb and IF, the MC block cast was trimmed and smoothed down between the thumb and IF, pt noted the cast was more comfortable once it was trimmed. Assessment/Plan Encounter Diagnoses: ICD-10-CM 1. Closed displaced fracture of shaft of fifth metacarpal bone of right hand with routine healing, subsequent encounter S62.326D F/U regular scheduled appt for cast off and xrays. Discussed fracture care and treatment. Answered all questions. Also discussed risks for non union. reviewed with the patient cast care and signs and symptoms of complications including but not limited to cellulitis and compartment syndrome and what to do it they occur. The patient is advised to seek medical attention or call if they occur. reviewed with the patient cast care and signs and symptoms of complications and what to do if any occur. The patient is advised to seek medical attention or call if any problems or concerns. documented in this encounter [facility] 06-20-2024 History of Present illness Narrative Images from the original note were not included. Subjective Patient ID: Thony Bryant is a 79 y.o. male. RT Hand fx DOI 06/09/24 Pt is RT handed Pt fell around 06/09/24 and started having pain and swelling at the base of his 4th and 5th digits. Pt has a hx of Parkinsons and frequent falls. notes he falls at least once a month. Went to [facility] and had xrays on 06/17/24 revealing a fracture of the 5th MC and was placed in an OCL plaster splint and hand was wrapped with 2 todd wraps and was referred to ortho. Has never injured this hand in the past. notes he also cut his LT hand when he fell and had some LT hand pain, but he is not having issues with it anymore. Denies pain at rest. Pain at worst 8/10 with certain movements and if he puts pressure on his hand. He gets pain ulnar side of wrist and hand. Denies N/T. Admits swelling in fingers. Admits IBU occas. Denies ice, heat or creams. Admits waking at night depending how he lays. TX: [facility]/XR RT hand 06/17/24, splint Here with his Juliana Objective Ortho Exam Hand/Wrist Musculoskeletal Exam Inspection Right Erythema: none Ecchymosis: none Edema: mild (in fingers) Palpation Palpation additional comments: In hand along 5th MC Range of Motion Range of motion additional comments: Not tested due to fracture Neurovascular Right Radial pulse: normal and 2+ Capillary refill: <3 sec and brisk I reviewed the [facility] urgent care note from 06/17/24, did xrays and placed in splint, pt had fallen a week prior and was concerned for a fracture. I reviewed the xrays of the right hand done on 06/17/24 at [facility] reveals an oblique minimally displaced 5th MC fracture. Assessment/Plan Encounter Diagnoses: ICD-10-CM 1. Right hand pain M79.641 2. Displaced fracture of shaft of fifth metacarpal bone, right hand, initial encounter for closed fracture S62.326A 2 rolls MC block cast applied, f/U in 4 weeks with xrays and cast off. Discussed fracture care and treatment. Answered all questions. Also discussed risks for non union. reviewed with the patient cast care and signs and symptoms of complications including but not limited to cellulitis and compartment syndrome and what to do it they occur. The patient is advised to seek medical attention or call if they occur. reviewed with the patient cast care and signs and symptoms of complications and what to do if any occur. The patient is advised to seek medical attention or call if any problems or concerns. documented in this encounter [facility] 02-19-2024 Procedure note [facility] 01-20-2024 Evaluation note Authored January 20, 2024 3:40p m 78-year-old man referred to the gastroenterology clinic for evaluation of change in bowel habits and weight loss. Patient reports loose bloody bowel movements since the end of September 2022. + unintentional weight loss. + Family history of colon cancer (brother) + NSAIDs use Will arrange for CT abdomen/pelvis Will check stool infectious workup CRP fecal calprotectin. Will arrange for colonoscopy [facility] Work Phone: 1(750) 746-671102-14-2024 Telephone encounter Note* Telephone Encounter - Isaac Reyes MD - 10/21/2023 12:07 PM EST [id number] Miscellaneous Notes* Telephone Encounter - Isaac Reyes MD - 10/21/2023 12:07 PM EST RX sent * Telephone Encounter - Rachael Hernandez MA - 10/21/2023 11:09 AM EST Juliana called and stated that when they got to talking about other things the other day at Ed's appointment, his script for Selegiline was missed. It goes to [facility] if its staying the same. [id number] Telephone encounter Note* Telephone Encounter - Rachael Hernandez MA - 10/21/2023 11:09 AM EST [facility] called and stated that when they got to talking about other things the other day at Ed's appointment, his script for Selegiline was missed. [facility] staying [facility] same. [id number] History of Present illness Narrative* Isaac Reyes MD - 10/19/2023 4:00 PM EST Patient ID: Thony Bryant is a 78 y.o. male who presents for: Blood in Stool Patient presents for presents evaluation of blood in stool/ rectal bleeding. Patient has associatedsymptoms of constipation. The patient denies abdominal pain [...] He denies having any clots in the stool.Sometimes he has pain with the bowel movements and frequently this is associated with the blood. Hehas struggled with constipation for some time. He notes he has had a previously normal colonoscopy,I did review and this was in 2019. His also brought up that he is struggling more with the Parkinson's. It is affecting his dailyactivities more. Review of Systems Constitutional: Negative for chills and fever. Respiratory: Negative for cough, shortness of breath and wheezing. Cardiovascular: Negative for chest pain and palpitations. Gastrointestinal: Positive for constipation. Negative for abdominal pain and diarrhea. Genitourinary: Negative for frequency and urgency. Objective He does have flat facies. Only does not have a true shuffling gait he does have shortened steps andis somewhat forward balanced. He has a minimal [...] first but then they understand if in severalweeks he continues to have the bleeding that [...] in agreement. Referral made. [id number] History of Present illness Narrative* Cheko Barrientos MD - 07/14/2023 10:30 AM EST Subjective Thony Bryant is a 78 y.o. [...] Dementia that is stable and not disturbing. Cheko Barrientos MD, [facility] Review of Systems Neurological: Positive for [...] (25 mg) by mouth 3 times a day.,Disp: , Rfl: tetrahydrozoline 0.05 % ophthalmic solution, Administer 1 drop into both eyes once daily., Disp: , Rfl: Assessment/Plan 1. 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 without angina pectoris 2. S/P coronary angioplasty 3. Hyperlipidemia, unspecified hyperlipidemia type documented in this [facility] Work Phone: 1(614) 622-607011-07-2023 Instructions* Patient Instructions* Melvina Moore LPN - 07/14/2023 10:30 AM [...] One year [facility]: 1(498) 722-482108-26-2022 Evaluation note* Encounter Date Diagnosis Assessment Notes Treatment Notes Treatment Clinical Notes Apr, Cat bite, initial encounter (ICD-10 [...] understanding and is agreeable to treatment plan [facility] Other Evaluation note* Diagnosis 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 without angina pectoris S/P coronary angioplasty Postsurgical percutaneous transluminal coronary angioplasty status Hyperlipidemia, unspecified hyperlipidemia type documented in this encounter [facility] Work Phone: Evaluation note* Diagnosis Parkinson's disease with dyskinesia and fluctuating manifestations [facility]* Diagnosis Bright red rectal bleeding- Primary Hemorrhage of rectum and anus Chronic constipation Unspecified constipation Parkinson's disease without dyskinesia, unspecified whether manifestations fluctuate [facility]* Diagnosis Onset Date Resolution Status Fracture of fifth metacarpal bone [facility] Work Phone: Evaluation note* Diagnosis Right hand pain- Primary Pain in soft tissues of limb Displaced fracture of shaft of fifth metacarpal bone, right hand, initial encounter for closed fracture [facility]* Diagnosis Closed displaced fracture of shaft of fifth metacarpal bone of right hand with routine healing, subsequent encounter- Primary [facility]* Diagnosis Parkinson's disease (CMS/HCC) Paralysis agitans [facility]* Diagnosis 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 without angina pectoris- Primary S/P coronary angioplasty Postsurgical percutaneous transluminal coronary angioplasty status Mixed hyperlipidemia BMI 23.0-23.9, adult Former smoker Personal history of tobacco use, presenting hazards to health At risk for falls Personal history of fall Memory loss Parkinson's disease without dyskinesia or fluctuating manifestations documented in this encounter [facility] Work Phone: Evaluation note* Diagnosis Parkinson's disease without dyskinesia, unspecified whether manifestations fluctuate (CMS/HCC)- Primary [facility]* Diagnosis Closed displaced fracture of shaft of fifth metacarpal bone of right hand with routine healing, subsequent encounter- Primary [facility]* Diagnosis Parkinson's disease with dyskinesia and fluctuating manifestations (CMS/HCC) Closed displaced fracture of shaft of fifth metacarpal bone of right hand with routine healing, subsequent encounter [facility]* Diagnosis Parkinson's disease with dyskinesia and fluctuating manifestations (CMS/HCC) Closed displaced fracture of shaft of fifth metacarpal bone of right hand with routine healing, subsequent encounter [facility]* Diagnosis Closed displaced fracture of shaft of fifth metacarpal bone of right hand with routine healing, subsequent encounter- Primary Closed displaced fracture of shaft of fifth metacarpal bone of right hand with routine healing, subsequent encounter [facility]* Diagnosis Closed displaced fracture of shaft of fifth metacarpal bone of right hand with routine healing, subsequent encounter documented in this encounter [facility] Author Gregory Rico [facility] February 19, 2024 1:41pm Note Date/Time February 19, 2024 1:41 pm [facility] [address] [place] [address] Gastroenterology H&P Signed Patient: Thony Bryant MR#: [id number] : 1945 Acct:[id number] Age/Sex: 79 / M Adm Date: 4 Loc: Room: Type: [facility] Attending Dr: Gregory Rico MD Copies to: MD Gregory Helton MD~ Date of Service: 02/19/2024 HISTORY & PHYSICAL: Patient's history with special attention to the cardiovascular, pulmonary systems and the current problem was reviewed with the patient immediately prior to the procedure. Present medications and doses reviewed in the EMR. Allergies and pertinent laboratory tests were also reviewedat this time in the EMR. The physical examination, as below, was then performed. Indication, assessment and HPI: 79-year-old man with history of colon polyps andfamily history of colon cancer(brother) here for colonoscopy for evaluation of change in bowel habits and weight loss Family history of GI malignancy? Yes PHYSICAL EXAMINATION General appearance: NAD Skin: No jaundice Head: NC/AT Eyes: Anicteric Neck: Supple Lungs: Normal respiratory effort, no use of accessory muscles Abdomen: nondistended Neuro: Ox3. REVIEW OF SYSTEMS Constitutional: Denies malaise, fevers Cardiovascular: Denies chest pain, palpitations Respiratory: Denies shortness of breath, wheezing Gastrointestinal: As per HPI Genitourinary: Denies dysuria, polyuria Musculoskeletal: Denies joint swelling, joint stiffness Neurological: Denies confusion, numbness, tingling Endocrine: Denies fatigue Written informed consent obtained from the patient. Risks (including but not limited to perforation, infection, bloating, bleeding, need for emergent surgeryand loss of life), benefits and alternatives explained and questions answered. The patient verbalized understanding. Based on history patient is an appropriate candidate for the procedure. Gregory Rico M.D. Documented By: Gregory Rico MD 02/19/24 1340 Signed By: <Electronically signed by Gregory Rico MD> 02/19/[address] [facility] Work Phone: History general Narrative - Reported* Type Description Date Medical History HYPERLIPIDEMIA Medical History CORONARY ARTERY DISEASE Medical History PARKINSON'S DISEASE Medical History DRY EYES Surgical History 2-3 HEART STENT PLACEMENT 2009 Surgical History CATARACTS REMOVED 2018 Hospitalization History SEE ABOVE [facility] Other [facility] for referral (narrative)* Consultation (Routine) - Authorized Specialty Diagnoses / Procedures Referred By Yenny michael Referred To Contact Cardiology Diagnoses 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 without angina pectoris S/P coronary angioplasty Procedures Follow Up In Cardiology Cheko Barrientos MD [address] [facility], [facility] [address] [place] [address] Cheko Barrientos MD [address] [facility], [facility] [address] [place] [address] Referral ID Status Reason Start Date Expiration Date V isits Requested Visits Authorized [id number] Authorized 07/14/2023 07/13/2024 1 1 [facility] Work Phone: [place] for referral (narrative)* Consultation (Routine) - Authorized Specialty Diagnoses / Procedures Referred By Yenny t Referred To Contact Neurology Diagnoses Parkinson's disease without dyskinesia, unspecified whether manifestations fluctuate Procedures DE OFFICE/OUTPATIENT NEW HIGH MDM 60 MINUTES Isaac Reyes MD [address] [place] [address] Ilya Orantes MD [address] [place] [address] Referral ID Status Reason Start Date Expiration Date Visits Requested Visits Authorized [id number] Authorized Specialty Services Required 10/19/2023 04/16/2024 1 1 . [facility] Healthcare Summary Purpose Family History Unknown Family [...] malignant neoplasm of colon: Brother(V16.0, Z80.0) Status:Active Relationship Condition Age at Onset Recorded Date/T stella brother Malignant neoplasm Unknown Unknown father Unknown Heart disease Unknown Not Specified Unknown Relationship Condition Age at Onset Recorded Date/T stella brother Malignant neoplasm Unknown Unknown father Unknown Heart disease Unknown mother Unknown Advance Directives Documents on File Type Date Recorded Patient Senior Quality Assurance Specialist Expl anation Advance Directives and Living Will 06/02/2023 3:28 PM 2021-12-04 Living Wi ll Power of Steamer Blocker 06/02/2023 3:22 PM 05-29 Healthcare Power Of Steamer Blocker Advance Directives and Living Will 12/04/2021 2021-12-04 Living Wi ll Documents on File Type Date Recorded Patient Senior Quality Assurance Specialist Expl anation Advance Directives and Living Will 06/02/2023 3:28 PM 2021-12-04 Living Wi ll Power of Steamer Blocker 06/02/2023 3:22 PM 05-29 Healthcare Power Of Steamer Blocker Advance Directives and Living Will 12/04/2021 2021-12-04 Living Wi ll Advance Directive Response Recorded Date/ Time Advance Directives No January 01 024 2:29pm Chief Complaint THONY BRYANT is being seen [...] that is stable and not disturbing. * Cheko Barrientos MD, FACC Chief Complaint and Reason for Visit Chief Complaint ADNORMAL WT LOSS,RADAMES GALINA, GASTROENTERITIS melana weight loss diarrhea melana weight loss diarrhea Reason for Visit Gastroenteritis Melena Weight loss, unintentional Chief Complaint ADNORMAL WT LOSS,RADAMES GALINA, GASTROENTERITIS melana weight loss diarrhea melana weight loss diarrhea M81.0 Reason for Visit Gastroenteritis Melena Weight loss, unintentional Chief Complaint ADNORMAL WT LOSS,RADAMES GALINA, GASTROENTERITIS melana weight loss diarrhea melana weight loss diarrhea M81.0 fatty liver Reason for Visit Gastroenteritis Melena Weight loss, unintentional Chief Complaint M81.0 fatty liver Right hand pain, swelling s/p fall a week ago S69.91XA Reason for Visit Fracture of fifth ak tacarpal bone Additional Source Comments (unrecognized sect ion and content) No Status Records FoundNo Status Records FoundNo Status Records FoundNo Status Records FoundNo Status Records FoundNo Status Records Found INFORMATION SOURCE (unrecogn ized section and content) DATE CREATED AUTHOR 10/07/2019 [facility] DATE CREATED AUTHOR AUTHOR'S ORGANIZ ATION 07/24/2022 [facility] DATE CREATED AUTHOR AUTHOR'S ORGANIZ ATION 07/24/2022 [employer] DATE CREATED AUTHOR AUTHOR'S ORGANIZ ATION 06/20/2024 [facility] DATE CREATED AUTHOR AUTHOR'S ORGANIZ ATION 07/16/2024 [facility] DATE CREATED AUTHOR AUTHOR'S ORGANIZ ATION 08/09/2024 [facility] Special[facility] EPIC REASON FOR VISIT (unrecogniz ed section and content) Reason Comments Annual Exam 1yr Specialty Diagnoses / Procedures Referred By Contac t Referred To Contact Cardiology Diagnoses 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 without angina pectoris S/P coronary angioplasty Procedures Follow Up In Cardiology Cheko Barrientos MD [address] [facility], [address] [address] Phone: tel: fax: Cheko Barrientos MD [address] [facility], [address] [address] Phone: tel: fax: Referral ID Status Reason Start Date Expiration Date V isits Requested Visits Authorized [id number] Authorized 07/14/2023 07/13/2024 1 1 Reason Onset Date Comments Care Coordination 10/21/2023 Reason Comments Rectal Bleeding Reason Comments Fracture Specialty Diagnoses / Procedures Referred By Contac t Referred To Contact Orthopaedic Surgery Diagnoses Unspecified fracture of other metacarpal bone, initial encounter for closed fracture Procedures DE UNLISTED EVALUATION AND MANAGEMENT [facility] [address] [facility] [address] [place] [address] Phone: tel: fax: Gal Cortes, [address] [facility] [address] [place] [address] Phone: tel: fax: Referral ID Status Reason Start Date Expiration Date Visits Re quested Visits Authorized [id number] Closed 06/20/2024 12/17/2024 1 1 Reason Comments Follow-up Reason Comments Med Refill Care Teams (unrecognized sec tion and content) R D Internship Relationship Specialty Start Date End Date Isaac Reyes MD [address] [place] [phone] PCP - General 07/24/21 R D Internship Relationship Specialty Start Date End Date Isaac Reyes MD [address] [place] [phone] PCP - General Family Medicine 01/29/23 R D Internship Relationship Specialty Start Date End Date Isaac Reyes MD [address] [place] [address] PCP - General Family Medicine 01/29/23 R D Internship Relationship Specialty Start Date End Date Isaac Reyes MD [address] [place] [address] PCP - General Family Medicine 01/29/23 Team Status: Active Member Role Status Dates Isaac Reyes MD Primary Care Provider Active Team Status: Inactive Member Role Status Dates Gregory Rico MD Attending Provider Active Start: January 20, 2024 End: January 20, 2024 NON STAFF Primary Care Provider Active Start: January 20, 2024 End: January 20, 2024 Team Status: Inactive Member Role Status Dates Gregory Rico MD Attending Provider Active Start: February 19, 2024 End: February 19, 2024 Isaac Reyes MD Primary Care Provider Active Start: February 19, 2024 End: February 19, 2024 Team Status: Active Member Role Status Dates Gregory Rico MD Attending Provider, Other Provider Active Start: February 19, 2024 Iasac Reyes MD Primary Care Provider Active Start: February 19, 2024 Team Status: Inactive Member Role Status Dates Isaac Reyes MD Primary Care Provider Active Start: March 25, 2024 End: March 25, 2024 Gregory Rico MD Attending Provider Active Start: March 25, 2024 End: March 25, 2024 Team Status: Inactive Member Role Status Dates Isaac Reyes MD Primary Care Provider Active Start: March 31, 2024 End: March 31, 2024 Gregory Rico MD Attending Provider Active Start: March 31, 2024 End: March 31, 2024 Team Status: Inactive Member Role Status Dates Isaac Reyes MD Primary Care Provider Active Start: June 17, 2024 End: June 17, 2024 Madeline Teran APRN Attending Provider Active S tart: June 17, 2024 End: June 17, 2024 R D Internship Relationship Specialty Start Date End Date Isaac Reyes MD [address] [place] [phone] PCP - General Family Medicine 01/29/23 R D Internship Relationship Specialty Start Date End Date Isaac Reyes MD [address] [place] [address] PCP - General Family Medicine 01/29/23 R D Internship Relationship Specialty Start Date End Date Isaac Reyes MD [address] [place] [phone] PCP - General Family Medicine 01/29/23 R D Internship Relationship Specialty Start Date End Date Isaac Reyes MD [address] [address] [place] [phone] PCP - General 07/24/21 R D Internship Relationship Specialty Start Date End Date Isaac Reyes MD (Fax) PCP - General Family Medicine 01/29/23 R D Internship Relationship Specialty Start Date End Date Isaac Reyes MD (Fax) PCP - General Family Medicine 01/29/23 R D Internship Relationship Specialty Start Date End Date Isaac Reyes MD (Fax) PCP - General Family Medicine 01/29/23 R D Internship Relationship Specialty Start Date End Date Isaac Reyes MD (Fax) PCP - General Family Medicine 01/29/23 R D Internship Relationship Specialty Start Date End Date Isaac Reyes MD PCP - General Family Medicine 01/29/23 Goals (unrecognized section and content) Goals may be documented in a n alternate section FOR RECORDS PERTAINING TO PATIENTS WHO ARE [...] BE BASED ON THE PRIMARY CLINICAL RECORDS. [facility] [employer] [facility]. provides no warranty or guarantee of the accuracy or completeness of information in this document.
== END 2024-08-25 07:14 | disposition home or self-care (01) ==
LOC: NM 07:13
PROVIDERS: PCP Family Medicine; Visit Provider Family Medicine
DX: M89.9 Disorder of bone, unspecified (principal)
CPT/HCPCS: 78315; A9503

== ENCOUNTER 2024-08-27 11:27 | Emergency (ER) | payer MEDICARE, OTHER, SELFPAY ==
[2024-08-27 11:33] VITALS: BP 158/86; PULSE 100; TEMP 36.3; O2SAT 98; BMI 21.1
--- OUTSIDE RECORDS SUMMARY | 2024-08-27 11:39 | XMS_ITS | CCD ---
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 Name Role Phone ESHA ZEPEDA Admitting Unavailable [...] Care Provider MD Gregory Rico Attending Provider [phone] MD Isaac Reyes Primary Care Provider [phone] Madeline Teran Attending Unavailable Madeline Teran Admitting [...] Rico Attending Provider JAMAL Teran Attending Provider Isaac Reyes MD Primary Care Provider CHEKO BARRIENTOS Attending Unavailable CHEKO BARRIENTOS Referring Unavailable ISAAC REYES Primary Care Unavailable Iasac Reyes MD Primary Care Provider [phone] COLLIN HENRY Attending Unavailable MICHELLE TO Referring [...] 2019 1:00am take 1 tablet by isela twice daily [...] (Lipitor) 40 mg tablet Indications: Atherosclerosis of pokagon coronary artery of pokagon heart without angina pectoris , Hyperlipidemia, unspecified hyperlipidemia type Take 1 tablet (40 mg) by mouth once daily. 90 tablet 3 07/14/2023 Active carbidopa 50 mg / levodopa 200 mg extended release oral tablet (20 sources) Aromatic Amino Acid Decarboxylation Inhibitor, Aromatic Amino Acid Start: 08-15-2024 carbidopa-levodopa CR (Sinemet CR) 50-200 MG ER tablet Indications: Parkinson's disease (CMS/HCC) 1.5 tablets orally upon arising in the AM and then again in 6 to 8 hours 270 tablet 1 08/15/2024 Active Start: 06-17-2024 take 1 tablet by isela twice daily Carbidopa-Levodopa Active 1 TAB PO [...] DO Active take 1 capsule by mo [facility] every twenty-four hours Colace 100 [...] chest pain. 07/23/2022 Active polyethylene glycol 3350 18290 mg powder for oral solution (4 sources) [...] Twice daily January 20, 2024 12:00am sennosides, penitentiary 25 mg oral tablet (3 sources) take 1 tablet by isela th three times daily sennosides (Laxative Maximum Strength) 25 mg tablet Take 1 tablet (25 mg) by mouth 3 times a day. 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 1 tablet orally once a week for 30 days 0 Active Aspirin EC 81 MG Oral Tablet Delayed Release 1 tablet on Thursday Quantity: 12 Refills: 3 Ordered: 23-Jul-2022 Cheko Barrientos MD Active take [facility] Aspirin 81 81 MG 1 tablet Orally once a week Active hydrOXYzine hydrochloride 25 mg oral tablet (4 sources) Antihistamine Start: 02-24-2018 End: 09-25-2019 take 25 mg by mouth every six hours Hydroxyzine Hcl Discontinued 25 MG PO Q6H 30 February 24, 2018 12:00am September 25, 2019 [...] Discontinued 4 MG PO Three times daily 10 September 25, 2019 1:00am January 20, 2024 [...] disease (20 sources) Atherosclerotic heart disease of pokagon coronary artery without angina pectoris; Translations: [Coronary [...] Onset: 03-25-2024 Chronic Other aftercare (1 source) 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 Kaufman on 08-09-2024 [employer] Work Phone: XR Hand - right 3 [facility] Study observation (narrative) [facility] XR Hand - right 3 [facility] Imaging Result: Xrays ap, LAT and OBL of the right hand performed on July 18, 2024 demonstrates reveals oblique 5th MC shaft fracture with callus formation. 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 Zainab GREERP [facility] XR Hand - right 3 ViewsOrder ed By: Gal Cortes on 07-19-2024 [employer] Work Phone: XR Hand - right 3 [facility] Radiology Study observation (narrative) [facility] XR hand RT min 3V*on 024 XR hand RT min 3V* [facility] Main [place] [address] [place] [address] XRay Report Signed Patient: Thony Bryant MR#: [id number] : 1945 Acct:[id number] Age/Sex: 79 / M ADM Date: 06/17/24 Loc: XDUCLY Room: Type: [facility] Attending Dr: Madeline Teran APRN Copies to: [...] Michelle Caceres M.D.06/17/2024 6:41 PM Dictation Location: [place] [address] Transcribed By: [facility] 06/17/241840 Dictated By: Michelle Caceres II, MD 06/17/241839 Signed By: 06/17/241840 Normal [facility] Arthur 02-19-2024 L Specimen: [id number] Received: 02/22/24 Status: SVENAryan Jefe Num: [id number] Spec Type: Surgical Subm Dr: Gregory Rico MD Tissues: A Colon Biopsy (RANDOM COLON BX R/O MICROSCO) Procedures: HE/2, Gross/Micro L4 Age/ Patient Sex Location Account Attending Physician Thony Bryant P 79/M [id number] Gregory Rico MD SPEC NUM: [id number] RECD: 02/22/24 STATUS: HANNA MAYBERRY NUM: [id number] WARNER: 02/19/[address] [facility] [address]: Gregory Rico MD ENTERED: 02/22/[address] [facility] [address]: SPEC TYPE: Surgical DEPT: S ORDERED: HE/2, Gross/Micro L4 ORDERED: HE/2, Gross/Micro [...] cm, entirely submitted in A1. CPT Codes 66066 -------- -------- Specimen: [id number] Received: 02/22/24 Status: HANNA Mayberry Num: [id number] Spec Type: Surgical Subm Dr: Gregory Rico MD Tissues: A Colon Biopsy (RANDOM COLON BX R/O MICROSCO) Procedures: HE/2, Gross/Micro L4 -------- Patient: Thony Bryant [id number] (Continued) -------- Signed (signature on file) Zulay Tabor MD 02/23/24 1408 Normal [facility] Office Visit (Cardiology)on 07-23-2022 Follow-up visit Diagnoses/Problems Assessed Atherosclerosis of pokagon coronary artery of pokagon heart without angina pectoris (414.01) (I25.10) S/P coronary angioplasty (V45.82) (Z98.61) LAD/RCA 2009 Essential tremor (333.1) (G25.0) Hyperlipidemia (272.4) (E78.5) Former smoker (V15.82) (Z87.891) quit 1971 1 pack per week x 5 years Overweight with body mass index (BMI) of 25 to 25.9 in adult (278.02,V85.21) (E66.3,Z68.25) Orders Atherosclerosis of pokagon coronary artery of pokagon heart without angina pectoris Renew: Aspirin EC 81 MG Oral Tablet Delayed Release; 1 tablet on Thursday Renew: Nitroglycerin 0.4 MG Sublingual Tablet Sublingual; PLACE 1 TABLET UNDER THE TONGUE EVERY 5 MINUTES FOR UP TO 3 DOSES NEEDED FOR CHEST PAIN.CALL 911 IF PAIN PERSISTS Atherosclerosis of pokagon coronary artery of pokagon heart without angina pectoris, Hyperlipidemia Renew: Atorvastatin Calcium 40 MG Oral Tablet; TAKE 1 TABLET DAILY Atherosclerosis of pokagon coronary artery of pokagon heart without angina pectoris, Hyperlipidemia, S/P coronary [...] stable and not disturbing. Cheko Barrientos MD, [facility] Surgical History Problems History of Cataract surgery History of Complete colonoscopy [id number] History of Tonsillectomy History of Tooth extraction [...] Signs Recorde (more content not included)... Normal [employer] Tobacco Screening.on 022 Adult depression screening assessment No [facility] [employer] 250 DO Work Phone: Fall risk assessment b) One or more falls in the last year [facility] [employer] 250 DO Work Phone: Tobacco use status [facility] b) No [facility] [employer] 250 DO Work Phone: Tobacco Screening.on 021 Fall risk assessment a) No falls within the last year [facility] [employer] 250 DO Work Phone: Tobacco use status [facility] b) No [facility] [employer] 250 DO Work Phone: XR L-SPINE 2 - 3 VIEWSon XR L-SPINE 2 - 3 VIEWS Patient: THONY BRYANT Exam Date: 07/09/2019 : 1945 Gender:M Ordering : TELMA VINCENT Admission #: [id number] Family : DR YINKA MAN . Order #: [id number] CLICK HERE TO VIEW EXAM RADIOLOGY REPORT [...] Yates M.D. on 07/09/2019 at 20:30 Normal [facility] Vital Signs Date Time Vital Sign Value Performing Clinician Facility 07-22-2024 11:23-0500 Body height 170.2 cm Ilya Orantes MD Work Phone: [facility] 07-22-2024 11:23-0500 Body mass index (BMI) [Ratio] 23.49 kg/m2 Ilya Orantes MD Work Phone: [facility] 07-22-2024 11:23-0500 Body weight 68.04 kg Ilya Orantes MD Work Phone: [facility] 07-14-2024 10:52-0500 Diastolic blood pressure 86 mm[Hg] Cheko Barrientos MD Work Phone: [facility] 07-14-2024 10:52-0500 Systolic blood pressure 136 mm[Hg] Cheko Barrientos MD Work Phone: [facility] 07-14-2024 10:36-0500 Body height 170.2 cm Cheko Barrientos MD Work Phone: [facility] 07-14-2024 10:36-0500 Body mass index (BMI) [Ratio] 23.34 kg/m2 Cheko Barrientos MD Work Phone: [facility] 07-14-2024 10:36-0500 Body weight 67.59 kg Cheko Barrientos MD Work Phone: [facility] 07-14-2024 10:36-0500 Heart rate 72 /min Cheko Barrientos MD Work Phone: [facility] 06-17-2024 18:09-0400 Body height 170.18 cm MD Iasac Reyes Work Phone: [facility] 06-17-2024 18:09-0400 Body mass index (BMI) [Ratio] 22.9 kg/m2 MD Isaac Reyes Work Phone: [facility] 06-17-2024 18:09-0400 Body temperature 96.9 [degF] MD Isaac Reyes Work Phone: [facility] 06-17-2024 18:09-0400 Body weight 66.39 kg MD Isaac Reyes Work Phone: [facility] 06-17-2024 18:09-0400 Diastolic blood pressure 74 mm[Hg] MD Isaac Reyes Work Phone: [facility] 06-17-2024 18:09-0400 Heart rate 89 /min MD Isaac Reyes Work Phone: [facility] 06-17-2024 18:09-0400 Respiratory rate 18 /min MD Isaac Reyes Work Phone: [facility] 06-17-2024 18:09-0400 SaO2% (BldA) [Mass fraction] 97 % MD Isaac Reyes Work Phone: [facility] 06-17-2024 18:09-0400 Systolic blood pressure 118 mm[Hg] MD Isaac Reyes Work Phone: [facility] 02-19-2024 14:15-0400 Diastolic blood pressure 97 mm[Hg] MD Isaac Reyes Work Phone: [facility] 02-19-2024 14:15-0400 Heart rate 70 /min MD Isaac Reyes Work Phone: [facility] 02-19-2024 14:15-0400 Respiratory rate 20 /min MD Isaac Reyes Work Phone: [facility] 02-19-2024 14:15-0400 SaO2% (BldA) [Mass fraction] 100 % MD Isaac Reyes Work Phone: [facility] 02-19-2024 14:15-0400 Systolic blood pressure 162 mm[Hg] MD Isaac Reyes Work Phone: [facility] 02-19-2024 11:56-0400 Body height 170.18 cm MD Isaac Reyes Work Phone: [facility] 02-19-2024 11:56-0400 Body temperature 97.5 [degF] MD Isaac Reyes Work Phone: [facility] 02-19-2024 11:56-0400 Body weight 68.04 kg MD Isaac Reyes Work Phone: [facility] 01-20-2024 15:01-0400 Body height 172.72 cm MD Isaac Reyes Work Phone: [facility] 01-20-2024 15:01-0400 Body mass index (BMI) [Ratio] 22.8 kg/m2 MD Isaac Reyes Work Phone: [facility] 01-20-2024 15:01-0400 Body weight 68.03 kg MD Isaac Reyes Work Phone: [facility] 01-20-2024 15:01-0400 Diastolic blood pressure 88 mm[Hg] MD Isaac Reyes Work Phone: [facility] 01-20-2024 15:01-0400 Heart rate 87 /min MD Isaac Reyes Work Phone: [facility] 01-20-2024 15:01-0400 Systolic blood pressure 131 mm[Hg] MD Isaac Reyes Work Phone: [facility] 10-19-2023 16:06-0500 Body height 170.2 cm Isaac Reyes MD Work Phone: [facility] 10-19-2023 16:06-0500 Body mass index (BMI) [Ratio] 23.96 kg/m2 Isaac Reyes MD Work Phone: [facility] 10-19-2023 16:06-0500 Body weight 69.4 kg Isaac Reyes MD Work Phone: [facility] 07-14-2023 11:09-0500 Diastolic blood pressure 75 mm[Hg] Cheko Barrientos MD Work Phone: [facility] 07-14-2023 11:09-0500 Systolic blood pressure 118 mm[Hg] Cheko Barrientos MD Work Phone: [facility] 07-14-2023 10:45-0500 Body height 170.2 cm Cheko Barrientos MD Work Phone: [facility] 07-14-2023 10:45-0500 Body mass index (BMI) [Ratio] 23.96 kg/m2 Cheko Barrientos MD Work Phone: [facility] 07-14-2023 10:45-0500 Body weight 69.4 kg Cheko Barrientos MD Work Phone: [facility] 07-14-2023 10:45-0500 Heart rate 88 /min Cheko Barrientos MD Work Phone: [facility] 07-23-2022 10:44-0500 Body height 167.64 cm Isaac Young Reyes Work Phone: [facility] [place] 250 DO Work Phone: 07-23-2022 10:44-0500 Body mass index (BMI) [Ratio] 25.02 kg/m2 Isaac Vidal Juan Antonioyer Work Phone: [facility] 250 DO Work Phone: 07-23-2022 10:44-0500 Body surface area Derived from formula 1.79 m2 Isaac Romanoyer Work Phone: [facility] 250 DO Work Phone: 07-23-2022 10:44-0500 Body weight 70.31 kg Isaac Vidal Juan Antonioyer Work Phone: [facility] 250 DO Work Phone: 07-23-2022 10:44-0500 Diastolic blood pressure 64 mm[Hg] Isaac Young Romanoyer Work Phone: [facility] 250 DO Work Phone: 07-23-2022 10:44-0500 Heart rate 88 /min Isaac Vidal Juan Antonioyer Work Phone: [facility] 250 DO Work Phone: 07-23-2022 10:44-0500 Systolic blood pressure 104 mm[Hg] Isaac Vidal Hemeyer Work Phone: [facility] 250 DO Work Phone: 07-17-2022 16:23-0500 61 1 Isaac Vidal Hemeyer Work Phone: [facility] 250 DO Work Phone: Comment on above: RICHIE 05-02-2022 15:35-0400 Body height 167.64 cm Mesha Joe Other [employer] Other 05-02-2022 15:35-0400 Body mass index (BMI) [Ratio] 25.69 kg/m2 Mesha Joe Other [employer] Other 05-02-2022 15:35-0400 Body temperature 98.1 [degF] Mesha Joe Other [employer] Other 05-02-2022 15:35-0400 Body weight 72.21 kg Mesha Joe Other [employer] Other 05-02-2022 15:35-0400 Diastolic blood pressure 64 mm[Hg] Mesha Joe Other [employer] Other 05-02-2022 15:35-0400 Respiratory rate 18 /min Mesha Joe Other [employer] Other 05-02-2022 15:35-0400 SaO2% (BldA) [Mass fraction] 98 % Mesha Joe Other [employer] Other 05-02-2022 15:35-0400 Systolic blood pressure 113 mm[Hg] Mesha Joe Other [employer] Other 07-24-2021 11:20-0500 Body height 167.64 cm Isaac Reyes Work Phone: [facility] 250 DO Work Phone: 07-24-2021 11:20-0500 Body mass index (BMI) [Ratio] 25.5 kg/m2 Isaac Reyes Work Phone: [facility] 250 DO Work Phone: 07-24-2021 11:20-0500 Body surface area Derived from formula 1.81 m2 Isaac Reyes Work Phone: [facility] 250 DO Work Phone: 07-24-2021 11:20-0500 Body weight 71.67 kg Isaac Reyes Work Phone: [facility] 250 DO Work Phone: 07-24-2021 11:20-0500 Diastolic blood pressure 79 mm[Hg] Isaac Reyes Work Phone: [facility] 250 DO Work Phone: 07-24-2021 11:20-0500 Heart rate 85 /min Isaac Reyes Work Phone: [facility] 250 DO Work Phone: 07-24-2021 11:20-0500 Systolic blood pressure 125 mm[Hg] Isaac Reyes Work Phone: [facility] 250 DO Work Phone: 07-08-2021 00:00-0400 59 1 Isaac Reyes Work Phone: [facility] 250 DO Work Phone: Comment on above: FSLDL Encounters Encounter Date Encounter Type Care Provider Facility Start: 08-25-2024 End: 08-25-2024 Telephone encounter Isaac Reyes MD Work Phone: [facility] Start: 08-08-2024 End: 08-08-2024 Sabino Lemon NP Work Phone: [facility] Start: 08-08-2024 End: 08-08-2024 Sabino Lemon NP Work Phone: [facility] Start: 08-08-2024 End: 08-08-2024 Postop follow up visit related to original px Zainab B Apling [employer] Work Phone: [facility] Comment on above: Closed displaced fra cture of shaft of fifth metacarpal bone of right hand with routine healing, subsequent encounter Start: 08-08-2024 End: 08-08-2024 ambulatory ZAINAB B APLING Not Available Start: 07-28-2024 End: 07-28-2024 Bamboo flowsheet Kaila Ross [employer]REIGHT LOADING SUPERVISOR Work Phone: [facility] Start: 07-28-2024 End: 07-28-2024 Bamboo flowsheet Kaila Ross [employer]REIGHT LOADING SUPERVISOR Work Phone: [facility] Start: 07-28-2024 End: 07-28-2024 ambulatory KAILA ROSS Not Available Start: 07-28-2024 End: 07-28-2024 Postop follow up visit related to original px Kaila Ross [employer] LOAD[employer] SUPERVISOR Work Phone: [facility] Comment on above: Closed displaced fra cture of shaft of fifth metacarpal bone of right hand with routine healing, subsequent encounter (Primary Dx) Start: 07-22-2024 End: 07-22-2024 Bamboo flowsheet Ilya Orantes MD Work Phone: [facility] Start: 07-22-2024 End: 07-22-2024 Bamboo flowsheet Ilya Orantes MD Work Phone: [facility] Start: 07-22-2024 End: 07-22-2024 ambulatory ILYA ORANTES Not Available Start: 07-22-2024 End: 07-22-2024 Office outpatient visit 25 minutes Ilya Orantes MD Work Phone: [facility] Comment on above: Parkinson's disease without dyskinesia, unspecified whether manifestations fluctuate (CMS/HCC) (Primary Dx) Start: 07-20-2024 End: 07-20-2024 Refill Ilya Orantes MD Work Phone: [facility] Comment on above: Parkinson's disease with dyskinesia and fluctuating manifestations (CMS/HCC) Start: 07-20-2024 End: 07-20-2024 Telephone encounter Ilya Orantes MD Work Phone: [facility] 210 Start: 07-18-2024 End: 07-18-2024 Bamboo flowsheet Zainab Lemon [employer] SUPER[employer] Work Phone: [facility] Start: 07-18-2024 End: 07-18-2024 Bamboo flowsheet Zainab Lemon [employer]PER[employer] Work Phone: [facility] Start: 07-18-2024 End: 07-18-2024 Postop follow up visit related to original px Zainab Lemon [employer] Work Phone: [facility] Comment on above: Closed displaced fra cture of shaft of fifth metacarpal bone of right hand with routine healing, subsequent encounter (Primary Dx) Start: 07-18-2024 End: 07-18-2024 ambulatory ZAINAB LEMON Not Available Start: 07-14-2024 End: 07-14-2024 Office outpatient visit 25 minutes Cheko Barrientos MD Work Phone: [facility] Comment on above: Atherosclerosis of n ative coronary artery of pokagon heart without angina pectoris (Primary Dx); S/P coronary angioplasty; Mixed hyperlipidemia; BMI 23.0-23.9, adult; Former smoker; At risk for falls; Memory loss; Parkinson's disease without dyskinesia or fluctuating manifestations Start: 07-14-2024 End: 07-14-2024 ambulatory CHEKO Ramirez [facility] Ambulatory Start: 06-22-2024 End: 06-22-2024 Bamboo flowsheet Zainab Boyd Aplcourtney [employer] SUPERVISOR Work Phone: [facility] Start: 06-22-2024 End: 06-22-2024 Bamboo flowsheet Zainab Boyd Apling [employer]PER[employer] Work Phone: [facility] Start: 06-22-2024 End: 06-22-2024 Telephone encounter Mira Saravia [employer]PER[employer] Work Phone: [facility] Start: 06-22-2024 End: 06-22-2024 Postop follow up visit related to original px Zainab Lemon [employer] Work Phone: [facility] Comment on above: Closed displaced fra cture of shaft of fifth metacarpal bone of right hand with routine healing, subsequent encounter (Primary Dx) Start: 06-22-2024 End: 06-22-2024 ambulatory ZAINAB Boyd APLING Not Available Start: 06-20-2024 End: 06-20-2024 Office outpatient new 45 minutes Zainab Lemon [employer] Work Phone: [facility] Comment on above: Right hand pain (Amy moon Dx); Displaced fracture of shaft of fifth metacarpal bone, right hand, initial encounter for closed fracture Start: 06-20-2024 End: 06-20-2024 ambulatory ZAINAB Boyd APLING Not Available Start: 06-17-2024 End: 06-17-2024 ambulatory Madeline Teran Facility:[facility] Start: 06-17-2024 End: 06-17-2024 Patient encounter procedure MD Isaac Reyes Work Phone: [facility] Kevin Work Phone: Start: 04-16-2024 End: 04-16-2024 ambulatory ILYA ORANTES Not Available Start: 03-31-2024 End: 03-31-2024 Patient encounter procedure MD Isaac Reyes Work Phone: [facility] Work Phone: Start: 03-31-2024 End: 03-31-2024 ambulatory MD Isaac Reyes Work Phone: [facility] Work Phone: Start: 03-25-2024 End: 03-25-2024 Patient encounter procedure MD Isaac Reyes Work Phone: [facility] Work Phone: Start: 03-25-2024 End: 03-25-2024 ambulatory MD Isaac Reyes Work Phone: [facility] Work Phone: Start: 02-19-2024 Non-patient / Non-visit MD Tae Reyes Work Phone: [facility] Work Phone: Start: 02-19-2024 End: 02-19-2024 Admission to same day surgery center MD Isaac Reyes Work Phone: [facility] Work Phone: Start: 02-19-2024 End: 02-19-2024 ambulatory MD Isaac Reyes Work Phone: [facility] Work Phone: Start: 02-05-2024 End: 02-05-2024 ambulatory ILYA ORANTES Not Available Start: 01-20-2024 End: 01-20-2024 Patient encounter procedure MD Isaac Reyes Work Phone: [facility] Work Phone: Start: 10-21-2023 Telephone encounter [...] 25 minutes Cheko Barrientos MD Work Phone: [facility] Comment on above: Atherosclerosis of n ative coronary artery of pokagon heart without angina pectoris; S/P coronary angioplasty; Hyperlipidemia, unspecified hyperlipidemia type Start: 07-23-2022 Office outpatient vi sit 25 minutes Isaac Reyes Work Phone: [facility] 250 DO Work Phone: Start: 07-23-[address] Cheko Barrientos Facility: Start: 07-14-2022 Telephone encounter Isaac venegas Work Phone: [facility] 250 DO Work Phone: Start: 05-02-2022 End: 05-02-2022 ambulatory Mesha Joe Other [facility] [employer] Other Start: 05-02-2022 Office outpatient ne w 20 minutes Mesha Joe [facility] Start: 07-30-2021 Rx Renewal Isaac Gordillo er Work Phone: [facility] [place] Work Phone: Start: 07-24-2021 Patient encounter procedure Isaac Reyes Work Phone: [facility] 250 DO Work Phone: Start: 09-07-2019 End: 10-06-2019 Patient encounter procedure ESA [place] Facility:[facility] Start: 07-27-2019 End: 09-06-2019 Patient encounter procedure ESA [place] Facility:[facility] Start: 07-09-2019 End: 07-09-2019 Patient encounter procedure ESA [place] Facility: Start: 04-27-2019 End: 04-27-2019 Patient encounter procedure ESHA ZEPEDA Facility:[facility]1 Procedures Date Procedure Procedure Detail Performing Clinician Start: 08-08-2024 Radex hand minimum 3 views Zainab Lemon [employer] Work Phone: Start: 07-18-2024 Radex hand minimum 3 views Zainab Lemon [employer] Work Phone: Start: 06-17-2024 Plain X-ray of right hand MD Isaac Reyes Work Phone: Start: 03-31-2024 Ultrasound elastogra phy of liver MD Isaac Reyes Work Phone: Start: 03-25-2024 Dual energy X-ray absorptiometry MD Isaac Reyes Work Phone: Start: 02-19-2024 Colonoscopy MD Isaac Reyes Work Phone: Cataract surgery Isaac lopez Work Phone: Tonsillectomy Isaac sun Work Phone: Tooth extraction Isaac lopez Work Phone: Total colonoscopy Isaac venegas Work Phone: Comment on above: [id number]; Plan of Treatment Date Care Activity Detail Author Start: 07-18-2025 End: 07-18-2025 Patient encounter procedure 07/18/2025 10:00 AM EST Office Visit [facility] [address] [facility] [address] [place] [address] Cheko Barrientos MD 703 [facility] [address] [place] [address] [facility] Start: 11-18-2024 End: 11-18-2024 Patient encounter procedure 11/18/2024 11:10 AM EDT Office Visit [facility] [address] [facility] [address] [place] [address] Ilya Orantes MD [address] [address] [facility] Start: 09-12-2024 End: 09-12-2024 Patient encounter procedure 09/12/2024 10:15 AM EST Office Visit [facility] [address] [place] [address] Zainab Lemon FREIGHT LOADING SUPERVISOR [address] [place] [address] [facility] Start: 08-08-2024 End: 08-08-2024 Patient encounter procedure [facility] Comment on above: Closed displaced fracture of shaft of fi fth metacarpal bone of right hand with routine healing, subsequent encounter Start: 07-22-2024 End: 07-22-2024 Patient encounter procedure 07/22/2024 11:10 AM EST Office Visit [facility] [address] [facility] [address] [place] [address] Ilya Orantes MD 3428 [facility] [address] [address] [facility] Start: 07-18-2024 End: 07-18-2024 Patient encounter procedure 07/18/2024 11:30 AM EST Office Visit [facility] [address] [place] [address] Zainab Lemon, FREIGHT LOADING SUPERVISOR [address] [facility] [address] [place] [address] [facility] Start: 07-14-2024 End: 07-14-2025 Alanine aminotransferase [Enzymatic activity/volume] in Serum or Plasma by With P-5'-P Alanine Aminotransferase Lab Routine Mixed hyperlipidemia Expected: 07/14/2024 (Approximate), Expires: 07/14/2025 [facility] Service Area Work Phone: Comment on above: Expected: 07/14/2024 (Approximate), Expi res: 07/14/2025 Start: 07-14-2024 End: 07-14-2025 Aspartate aminotransferase [Enzymatic activity/volume] in Serum or Plasma by With P-5'-P Aspartate Aminotransferase Lab Routine Mixed hyperlipidemia Expected: 07/14/2024 (Approximate), Expires: 07/14/2025 [facility] Work Phone: Comment on above: Expected: 07/14/2024 (Approximate), Expi res: 07/14/2025 Start: 07-14-2024 End: 07-14-2025 Basic metabolic 2000 panel - Serum or Plasma Basic Metabolic Panel Lab Routine Atherosclerosis of pokagon coronary artery of pokagon heart without angina pectoris S/P coronary angioplasty Mixed hyperlipidemia Expected: 07/14/2024 (Approximate), Expires: 07/14/2025 [facility] Work Phone: Comment on above: Expected: 07/14/2024 (Approximate), Expi res: 07/14/2025 Start: 07-14-2024 End: 07-14-2025 CBC panel - Blood by Automated count CBC Lab Routine Atherosclerosis of pokagon coronary artery of pokagon heart without angina pectoris S/P coronary angioplasty Mixed hyperlipidemia Expected: 07/14/2024 (Approximate), Expires: 07/14/2025 [facility] Work Phone: Comment on above: Expected: 07/14/2024 (Approximate), Expi res: 07/14/2025 Start: 07-14-2024 End: 07-14-2025 Lipid 1996 panel - Serum or Plasma Lipid Panel Lab Routine Mixed hyperlipidemia Expected: 07/14/2024 (Approximate), Expires: 07/14/2025 [facility] Work Phone: Comment on above: Expected: 07/14/2024 (Approximate), Expi res: 07/14/2025 Start: 06-22-2024 End: 06-22-2024 Patient encounter procedure 06/22/2024 10:45 AM EDT Office Visit [facility] [address] [place] [id number] Zainab Lemon NP [address] [place] [address] Arrived [facility] Comment on above: Arrived Start: 06-17-2024 Patient referral [facility] Work Phone: Start: 05-08-2024 COVID-19 Vaccine ( season) COVID-19 Vaccine ( season) [facility] Start: 05-08-2024 Influenza vaccination Influenza Vaccine (#1) [facility] Healthcare Start: 03-31-2024 [facility] Start: 03-06-2024 Influenza vaccination Influenza Vaccine (#1) [facility] Comment on above: Postponed from 05/08/2023 (Patient Refus ed) Start: 02-19-2024 [facility] Start: 12-09-2023 End: 12-09-2023 Patient encounter procedure 12/09/2023 11:30 AM EDT Office Visit [facility] [address] [place] [address] Isaac Reyes MD [address] [place] [address] [facility] Start: 07-14-2023 FUV, Provider: Cheko Barrientos, Status: Pen, Time: 10:30 AM FUV, Provider: Cheko Barrientos, Status: Pen, Time: 10:30 AM [facility] [address] DO Work Phone: Start: 05-08-2023 Influenza vaccination Influenza Vaccine (#1) [facility] Start: 07-23-2022 FUV, Provider: Cheko Barrientos, Status: Pen, Time: 11:00 AM FUV, Provider: Cheko Barrientos, Status: Pen, Time: 11:00 AM [facility] 250 DO Work Phone: Start: 2022 RSV High Risk: (Elderly (60+) or Population) (1 - 1-dose 75+ series) RSV High Risk: (Elderly (60+) or Population) (1 - 1-dose 75+ series) [facility] Start: 01-10-2017 Pneumococcal Vaccine: 65+ Years (2 - PPSV23 or PCV20) Pneumococcal Vaccine: 65+ Years (2 - PPSV23 or PCV20) [facility] Start: 09-16-2016 Pneumococcal Vaccine: 65+ Years (2 of 2 - PPSV23 or PCV20) Pneumococcal Vaccine: 65+ Years (2 of 2 - PPSV23 or PCV20) [facility] Start: 1997 Zoster Vaccines (1 of 2) Zoster Vaccines (1 of 2) [facility] Start: 1969 DTaP/Tdap/Td Vaccines (1 - Tdap) DTaP/Tdap/Td Vaccines (1 - Tdap) [facility] Start: 1965 Hepatitis C screening Hepatitis C Screening [facility] Start: 1945 COVID-19 Vaccine (#1) COVID-19 Vaccine (#1) [facility] Start: 1945 Lipid panel Lipid Panel [facility] Start: 1945 Yearly Adult Physical Yearly Adult Physical [facility] Bacteria identified in Stool by Culture [facility] CT Abdomen and Pelvi s W contrast IV [facility] Patient Education Hemorrhoids (D C) Know your Meds [facility] Work Phone: Patient referral [facility] Work Phone: [facility] Immunizations Immunization Date Immunization Notes Care Provider Jasmin souza 07-22-2016 pneumococcal conjuga te vaccine, 13 valent Isaac Reyes Work Phone: -[facility] 250 DO Work Phone: Comment on above: Series: Payers Date Payer Category Payer Self-pay [id number] 2023 Private Health Insurance [id number] 2020 Unknown 2018 Medicare [id number] 1959 Unknown [id number] 1947 Unknown [id number] 2.16.840.1.997792.3.579.2.593 1947 Unknown [id number] 2.16.840.1.265321.3.579.2.593 1947 Unknown [id number] 2.16.840.1.817038.3.579.2.593 1947 Unknown [id number] 2.16.840.1.723600.3.579.2.593 1947 Unknown [id number] 2.16.840.1.972817.3.579.2.356 1947 Unknown [id number] 2.16.840.1.564033.3.579.2.124 4 1947 Unknown [id number] 2.16.840.1.449192.3.579.2.125 9 1947 Unknown [id number] 2.16.840.1.952373.3.579.2.125 9 1947 Unknown [id number] 2.16.840.1.261386.3.579.2.125 9 1947 Unknown [id number] 2.16.840.1.423976.3.579.2.125 9 1947 Unknown [id number] 2.16.840.1.500596.3.579.2.125 9 1947 Unknown [id number] 2.16.840.1.581206.3.579.2.125 9 1947 Unknown [id number] 2.16.840.1.149760.3.579.2.125 9 1947 Unknown [id number] 2.16.840.1.488095.3.579.2.125 9 1947 Unknown [id number] 2.16.840.1.826480.3.579.2.125 9 1947 Unknown [id number] 2.16.840.1.308882.3.579.2.125 9 1947 Unknown [id number] 2.16.840.1.084057.3.579.2.125 9 1947 Unknown [id number] 2.16.840.1.767269.3.579.2.125 9 1947 Unknown [id number] 2.16.840.1.979789.3.579.2.125 9 Medicare [id number] 2.16.840.1.392230.19 Unknown [id number] 2.16.840.1.352041.19 Unknown MMO [employer] [id number] Unknown HCAP/HFA/FAP Active [id number] Unknown [id number] 2.16.840.1.065407.3.579.2.531 Unknown [id number] 2.16.840.1.892444.3.579.2.531 Unknown [id number] 2.16.840.1.983043.3.579.2.531 Unknown [id number] 2.16.840.1.352763.3.579.2.531 Social History Date Type Detail Facility Start: 07-13-2023 End: 09-24-2023 Rarely consumes alcohol Rarely consumes alcohol -[facility] 250 DO Work Phone: Comment on above: quit 1971 1 pack per week x 5 years; Start: 07-13-2023 End: 09-24-2023 Sex Assigned At [facility] [employer] Other Start: 07-13-2023 End: 02-19-2024 Tobacco smoking status NHIS Ex-smoker [facility] Work Phone: History of tobacco use Current smoker [facility] Work Phone: History of tobacco use Cigarette Smoker [facility] Work Phone: Start: 07-13-2023 End: 07-21-2023 Tobacco use and exposure Smokeless tobacco non-user [facility] Work Phone: Start: 07-14-2023 End: 07-14-2024 Alcohol intake Lifetime non-drinker (finding) [facility] Work Phone: Start: 1945 Sex Assigned At Not on file [facility] Work Phone: Start: 07-04-2023 End: 07-14-2024 Exposure to SARS-CoV-2 (event) Not sure [facility] Start: 07-21-2023 Tobacco smoking status NHIS Never smoked tobacco [facility] Start: 09-24-2023 End: 08-08-2024 Alcohol intake Ex-drinker (finding) [facility] Start: 1945 Sex Assigned At Male [facility] NEGATED: Highlighted row Denies Caffeine use Denies Caffeine use [facility] 250 DO Work Phone: Comment on above: Coke occasionally; Goals Date Patient Goal Desired Activity /State Clinical Notes 05-02-2022 to 08-25-2024 Telephone Encounter - Isaac Reyes MD - 08/25/2024 5:45 PM ESTTelephone Encounter - Isaac Reyes MD - 08/25/2024 5:45 PM David Lemon NP - 08/08/2024 10:30 AM ESTPatient Instructions Note Date & Type Note Facility 08-25-2024 Telephone encounter Note Called and spoke with his and gave her the message no further follow-up needed. [facility] 08-25-2024 Miscellaneous Notes Called and spoke with his and gave her the message no further follow-up needed. documented in this encounter [facility] 08-08-2024 History of Present illness Narrative Images [...] at least once a month. Went to [facility] and had xrays on 06/17/24 revealing a [...] eating due to being RT handed. TX: [facility]/XR RT hand 06/17/24, splint, MC block cast [...] Ortho Exam documented in this encounter [facility] 07-28-2024 History of Present illness Narrative [...] at least once a month. Went to [facility] and had xrays on 06/17/24 revealing a [...] motrin. Denies N/T, swelling. Wakes pt at . TX: [facility]/XR RT hand 06/17/24, splint, MC block cast [...] develop for requiring urgent evaluation. 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 Todd Elevated cholesterol ([facility]) H/O heart artery stent Heart disease High cholesterol ([facility]) Past Surgical History: Procedure Laterality Date CAPSULOTOMY [...] disease without dyskinesia, unspecified whether manifestations fluctuate ([facility]) Continue Amantadine 100 mg BID Continue Selegiline 5 mg BID Continue Sinemet 0.5 [id number] TID Continue Sinemet 1.5 tablet 50-200 mg [...] 3-4 months. documented in this encounter [facility] 07-20-2024 Note Addended by: ILYA ORANTES on: 07/20/2024 02:35 PM Modules accepted: Orders [facility] 07-20-2024 Miscellaneous Notes Addended by: ILYA ORANTES on: 07/20/2024 02:35 PM Modules accepted: Orders Voicemail Received: Refill request of Selegiline 5mg to [facility]. documented in this encounter [facility] 07-20-2024 Telephone encounter Note Voicemail Received: Refill request of Selegiline 5mg to [facility]. [facility] 07-18-2024 History of Present illness Narrative Images from the original note were not included. Subjective Patient ID: Thony Bryant is a 79 y.o. male. RT Hand fx DOI 06/09/24 Pt is RT handed Presents in block cast, denies issues with cast, removed today. 5 weeks and 4 days s/p 5th MC fracture Pt fell around 06/09/24 and started having pain and swelling at the base of his 4th and 5th digits. Pt has a hx of Parkinsons and frequent falls. notes he falls at least once a month. Went to [facility] and had xrays on 06/17/24 revealing a [...] at night depending how he lays. TX: [place] [facility]/XR RT hand 06/17/24, splint, [...] or concerns. documented in this encounter [facility] 07-14-2024 History of Present illness Narrative [...] Disp: , Rfl: Assessment/Plan 1. Atherosclerosis of pokagon coronary artery of pokagon heart without angina pectoris Follow Up In [...] Attestation By signing my name below, I, Maggy Cuba LPN attest that this documentation has been prepared [...] discussion and plan. documented in this encounter [facility] Work Phone: 07-14-2024 Instructions Smitha Cartwright LPN [...] Prevention Education Given documented in this encounter [facility] Work Phone: 06-22-2024 Telephone encounter Note Sent. Not sure why someone discontinued medication on 06/20. Different office staff did. [facility] 06-22-2024 Miscellaneous Notes Sent. Not sure why someone discontinued medication on 06/20. Different office staff did. Patient's called to request new prescription for Amantadine to be sent to [facility] in [place]. documented in this encounter [facility] 06-22-2024 Telephone encounter Note Patient's called to request new prescription for Amantadine to be sent to [facility] in [place]. [facility] 06-22-2024 History of Present illness Narrative [...] at least once a month. Went to [facility] and had xrays on 06/17/24 revealing a [...] at night depending how he lays. TX: [place] [facility]/XR RT hand 06/17/24, splint, [...] or concerns. documented in this encounter [facility] 06-20-2024 History of Present illness Narrative [...] at least once a month. Went to [facility] and had xrays on 06/17/24 revealing a [...] at night depending how he lays. TX: [facility]/XR RT hand 06/17/24, splint Here with his Juliana Objective Ortho Exam Hand/Wrist Musculoskeletal Exam Inspection Right Erythema: none Ecchymosis: none Edema: mild (in fingers) Palpation Palpation additional comments: In hand along 5th MC Range of Motion Range of motion additional comments: Not tested due to fracture Neurovascular Right Radial pulse: normal and 2+ Capillary refill: <3 sec and brisk I reviewed the [facility] urgent care note from 06/17/24, did xrays and placed in splint, pt had fallen a week prior and was concerned for a fracture. I reviewed the xrays of the right hand done on 06/17/24 at [facility] reveals an oblique minimally displaced 5th MC [...] or concerns. documented in this encounter [facility] 02-19-2024 Procedure note [facility] 01-20-2024 Evaluation note Authored January 20, 2024 [...] CRP fecal calprotectin. Will arrange for colonoscopy [facility] Work Phone: 1(316) 610-772702-14-2024 Telephone encounter Note* Telephone Encounter - Isaac Reyes MD - 10/21/2023 12:07 PM EST [facility] sent [id number] Miscellaneous Notes* Telephone Encounter - Isaac Reyes [...] staying the same. [id number] Telephone encounter Note* Telephone Encounter - Rachael Hernandez MA - 10/21/2023 11:09 AM EST Juliana called and stated that when they got to talking about other things the other day at Ed's appointment, his script for Selegiline was missed. [facility] if its staying the same. [id number] History of Present illness Narrative* Isaac Reyes [...] agreement. Referral made. documented in [facility] encounter[facility] [id number] History of Present illness Narrative* Cheko Barrientos [...] stable and not disturbing. Cheko Barrientos MD, [facility] Review of Systems Neurological: Positive for dizziness. [...] Disp: , Rfl: Assessment/Plan 1. Atherosclerosis of pokagon coronary artery of pokagon heart without angina pectoris 2. S/P coronary angioplasty 3. Hyperlipidemia, unspecified hyperlipidemia type [facility]: 1(604) 884-301511-07-2023 Instructions* Patient Instructions* Melvina Moore LPN - [...] One year Same meds [facility] Work Phone: 1(189) 900-865708-26-2022 Evaluation note* Encounter Date Diagnosis Assessment Notes [...] understanding and is agreeable to treatment plan [facility] Other Evaluation note* Diagnosis Atherosclerosis of pokagon coronary artery of pokagon heart without angina pectoris S/P coronary angioplasty Postsurgical percutaneous transluminal coronary angioplasty status Hyperlipidemia, unspecified hyperlipidemia type documented in this encounter [facility] Work Phone: Evaluation note* Diagnosis Parkinson's disease with dyskinesia and fluctuating manifestations [facility] Diagnosis Bright red rectal bleeding- Primary Hemorrhage of rectum and anus Chronic constipation Unspecified constipation Parkinson's disease without dyskinesia, unspecified whether manifestations fluctuate documented [facility]* Diagnosis Onset Date Resolution Status Fracture of fifth metacarpal bone [facility] Work Phone: Evaluation note* Diagnosis Right hand [...] encounter [facility]* Diagnosis Atherosclerosis of pokagon coronary artery of pokagon heart without angina pectoris- Primary S/P coronary angioplasty Postsurgical percutaneous transluminal coronary angioplasty status Mixed hyperlipidemia BMI 23.0-23.9, adult Former smoker Personal history of tobacco use, presenting hazards to health At risk for falls Personal history of fall Memory loss Parkinson's disease without dyskinesia or fluctuating manifestations documented in this encounter [facility] Work Phone: Evaluation note* Diagnosis Parkinson's [...] HealthcareHistory and physical note Author Gregory Rico [facility] February 19, 2024 1:41pm Note Date/Time February 19, 2024 1:41 pm [facility] [address] [place] [address] Gastroenterology H&P Signed Patient: Thony Bryant MR#: [id number] : 1945 Acct:[id number] Age/Sex: 79 / M Adm Date: 4 Loc: Room: Type: [facility] Attending Dr: Gregory Rico MD Copies to: MD Gregory Hleton MD~ Date of Service: 02/19/2024 HISTORY & [...] signed by Gregory Rico MD> 02/19/24 1341 [facility] Work Phone: History general Narrative - Reported* Type Description Date Medical History HYPERLIPIDEMIA Medical History CORONARY ARTERY DISEASE Medical History PARKINSON'S DISEASE Medical History DRY EYES Surgical History 2-3 HEART STENT PLACEMENT 2009 Surgical History CATARACTS REMOVED 2018 Hospitalization History SEE ABOVE [facility] Other Reason for referral (narrative)* Consultation (Routine) - Authorized Specialty Diagnoses / Procedures Referred By Contac t Referred To Contact Cardiology Diagnoses Atherosclerosis of pokagon coronary artery of pokagon heart without angina pectoris S/P coronary angioplasty Procedures Follow Up In Cardiology Cheko Barrientos MD [address] [facility] 2, [address] [address] Cheko Barrientos MD [address] [place] [address] [place] [address] Referral ID Status Reason Start Date Expiration Date V isits Requested Visits Authorized [id number] Authorized 07/14/2023 07/13/2024 1 1 [facility] Work Phone: Reason for referral (narrative)* Consultation (Routine) - Authorized Specialty Diagnoses / Procedures Referred By Contac t Referred To Contact Neurology Diagnoses Parkinson's disease without dyskinesia, unspecified whether manifestations fluctuate Procedures AL OFFICE/OUTPATIENT [facility] 60 MINUTES Isaac Reyes MD [address] [place] [address] Ilya Orantes MD [address] [place] [address] Referral ID Status Reason Start Date Expiration Date Visits Requested Visits Authorized [id number] Authorized Specialty Services Required 10/19/2023 04/16/2024 1 1 [facility] Healthcare Summary Purpose Family History Unknown Family [...] Documents on File Type Date Recorded 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 Advance Directives and Living Will 06/02/2023 3:28 PM 2021-12-04 Living Wi ll Power of Oil Processing Technician 06/02/2023 3:22 PM 05-29 Healthcare Power Of Oil Processing Technician Advance Directives and Living Will 12/04/2021 2021-12-04 Living Wi ll Documents on File Type Date Recorded 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 Advance Directives and Living Will 06/02/2023 3:28 PM 2021-12-04 Living Wi ll Power of Oil Processing Technician 06/02/2023 3:22 PM 05-29 Healthcare Power Of Oil Processing Technician Advance Directives and Living Will 12/04/2021 2021-12-04 [...] S69.91XA Reason for Visit Fracture of fifth me tacarpal bone Additional Source Comments (unrecognized sect ion and content) No Status Records FoundNo Status Records FoundNo Status Records FoundNo Status Records FoundNo Status Records FoundNo Status Records Found INFORMATION SOURCE (unrecogn ized section and content) DATE CREATED AUTHOR 10/07/2019 [facility] DATE CREATED AUTHOR AUTHOR'S ORGANIZ ATION 07/24/2022 [facility] DATE CREATED AUTHOR AUTHOR'S ORGANIZ ATION 07/24/2022 [employer] DATE CREATED AUTHOR AUTHOR'S ORGANIZ ATION 06/20/2024 [facility] DATE CREATED AUTHOR AUTHOR'S ORGANIZ ATION 07/16/2024 [facility] DATE CREATED AUTHOR AUTHOR'S ORGANIZ ATION 08/09/2024 [facility] EPIC REASON FOR VISIT (unrecogniz ed section and content) Reason Comments Annual Exam 1yr Specialty Diagnoses / Procedures Referred By Contac t Referred To Contact Cardiology Diagnoses Atherosclerosis of pokagon coronary artery of pokagon heart without angina pectoris S/P coronary angioplasty Procedures Follow Up In Cardiology Cheko Barrientos MD [address] [place] [address] Phone: tel: fax: Cheko Barrientos MD [address] [place] [address] Phone: tel: fax: Referral ID Status Reason Start Date Expiration Date V isits Requested Visits Authorized [id number] Authorized 07/14/2023 07/13/2024 1 1 Reason Onset Date Comments Care Coordination 10/21/2023 Reason Comments Rectal Bleeding Reason Comments Fracture Specialty Diagnoses / Procedures Referred By Contac t Referred To Contact Orthopaedic Surgery Diagnoses Unspecified fracture of other metacarpal bone, initial encounter for closed fracture Procedures AL UNLISTED EVALUATION AND MANAGEMENT [facility] [address] [place] [phone] Phone: tel: fax: Gal Cortes, [address] [address] Phone: tel: fax: Referral ID Status Reason Start Date Expiration Date Visits Re quested Visits Authorized [id number] Closed 06/20/2024 12/17/2024 1 1 Reason Comments Follow-up Reason Comments Med Refill Care Teams (unrecognized sec tion and content) 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 Relationship Specialty Start Date End Date Isaac Reyes MD [address] [place] [id number] PCP - General 07/24/21 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 Relationship Specialty Start Date End Date Isaac Reyes MD [address] [place] [phone] PCP - General Family Medicine 01/29/23 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 Relationship Specialty Start Date End Date Isaac Reyes MD [address] [place] [phone] PCP - General Family Medicine 01/29/23 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 Relationship Specialty Start Date End Date Isaac Reyes MD [address] [phone] PCP - General Family Medicine 01/29/23 Team [...] Other Provider Active Start: February 19, 2024 Isaac Reyes MD Primary [...] June 17, 2024 End: June 17, 2024 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 Relationship Specialty Start Date End Date Isaac Reyes MD [address] [place] [address] PCP - General Family Medicine 01/29/23 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 Relationship Specialty Start Date End Date Isaac Reyes MD [address] [place] [address] PCP - General Family Medicine 01/29/23 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 Relationship Specialty Start Date End Date Isaac Reyes MD [address] [place] [address] PCP - General Family Medicine 01/29/23 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 Relationship Specialty Start Date End Date Isaac Reyes MD [address] [place] [address] PCP - General 07/24/21 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 Relationship Specialty Start Date End Date Isaac Reyes MD (Fax) PCP - General Family Medicine 01/29/23 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 Relationship Specialty Start Date End Date Isaac Reyes MD (Fax) PCP - General Family Medicine 01/29/23 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 Relationship Specialty Start Date End Date Isaac Reyes MD (Fax) PCP - General Family Medicine 01/29/23 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 Relationship Specialty Start Date End Date Isaac Reyes MD (Fax) PCP - General Family Medicine 01/29/23 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 Relationship Specialty Start Date End Date Isaac Reyes MD (Fax) PCP - General Family Medicine 01/29/23 Goals [...] BE BASED ON THE PRIMARY CLINICAL RECORDS. [facility] ([facility]. provides no warranty or guarantee of the accuracy or completeness of information in this document.
--- NOTE | 2024-08-27 11:45 | CT_ITS ---
The [address] [address] Patient Name: THONY BRYANT MRN: [id number] date: 1945 Sex: M Assigned Patient Location: ER Current Patient Location: ER Accession/Order Number: [id number] Exam Date: 08/27/2024 12:05 Report Date: 08/27/2024 13:27 At the request of: SOFYA SHEPPARD Procedure: CT pelvis wo con EXAM: CT pelvis wo con HISTORY: right hip pain . Patient fell 2 days ago with subsequent pain. COMPARISON: CT abdomen pelvis 01/23/2024. Bone scan 08/25/2024. TECHNIQUE: CT pelvis without contrast. Axial scans with reformatted coronal and sagittal images. Individualized radiation dose reduction used for this exam. FINDINGS: No fracture or suspicious bone lesion. Small density right ilium likely incidental bone island. Normal symmetric hip and SI joints. No soft tissue fluid collection or hematoma. Degenerative changes noted lower lumbar spine L3-4 and L4-5.. Large amount of stool in the visualized colon especially rectum which is distended. No pelvic soft tissue mass or adenopathy or free fluid. Enlarged prostate with calcifications.. Small amount of fluid in the bladder with mildly prominent wall. CT/CT pelvis wo con IMPRESSION: Negative for fracture or soft tissue fluid collection/hematoma. Electronically authenticated by: TANIA BALTAZAR Date: 08/27/2024 13:27
--- NOTE | 2024-08-27 12:02 | ED.LOWEXI1 ---
HPI HPI - Extremity Injury (Lower) General Chief Complaint: Extremity Injury, Lower Stated Complaint: FALL ON 08/25/24; R HIP PAIN Time Seen by Provider: 08/27/24 11:39 Source: patient Mode of arrival: walk-in History of Present Illness HPI Narrative: The patient is, to the ER with a right hip pain that started 2 days ago when he fell while going up 3 steps at home, the patient mentioned that the fall was more toward the right side and he had since then has been having pain in the right side associated with the movement Related Data Home Medications ?Medication ?Instructions ?Recorded ?Confirmed amantadine HCl 100 mg tablet 100 mg PO BID 01/02/24 08/27/24 atorvastatin 40 mg tablet 40 mg PO DAILY 01/02/24 08/27/24 carbidopa ER 50 mg-levodopa 200 mg 1.5 tab PO BID 01/02/24 08/27/24 tablet,extended release selegiline HCl 5 mg tablet 5 mg PO BID 01/02/24 08/27/24 carbidopa 25 mg-levodopa 100 mg 1 tab PO TID 08/27/24 08/27/24 tablet Previous Rx's ?Medication ?Instructions ?Recorded oxycodone-acetaminophen 5 mg-325 1 tab PO Q8H PRN pain 3 days #9 08/27/24 mg tablet (Percocet) tabs Allergies Allergy/AdvReac Type Severity Reaction Status Date / Time No Known Drug Allergies Allergy Verified 01/02/24 15:04 Opioid HPI Opioid Management Most Recent Pain and Opioid Data: No Data to Display Review of Systems ROS Status of ROS 10 or more systems reviewed and unremarkable except as noted in history and below PFSH PFSH Social History Little interest or pleasure in doing things: not at all Feeling down, depressed, or hopeless: not at all Exam Narrative Exam Narrative: Nurses notes and vital signs reviewed and patient is not hypoxic. General: Well-appearing and in no apparent distress. Skin: Warm, dry, no pallor noted. No rash. Head: Normocephalic, atraumatic. Neck: Supple, non-tender. Eye: Pupils are equal, round and EOMI. No scleral icterus. Ears, Nose, Mouth, and Throat: TM are clear, no nasal mucosal hypertrophy. Oral mucosa is moist, no posterior oropharynx erythema, uvula is mid-line Cardiovascular: Regular Rate and Rhythm without murmur, gallop or rub. Respiratory: No accessory muscle use or respiratory distress. Lungs are clear to auscultation, no wheezing, rales or rhonchi Chest Wall: no tenderness Back: No midline thoracic or lumbar vertebral tenderness. No CVA tenderness Musculoskeletal: There is limitation of the right hip movement due to pain there is no obvious ecchymosis that was seen on the skin from outside and there is tenderness and mild palpation of the right hip patient still able to do some flexion but with pain, otherwise the patient have a good anterior tibial pulse and he have a full range of movement in the ankle and the knee on the right side GI: Abdomen is soft, non-distended. Normal bowel sounds. No masses appreciated. No tenderness to palpation. No rebound, guarding, or rigidity noted. Neurological: A&O x4. No cranial nerve dysfunction observed Constitutional Vital Signs, click to edit/add: Last Vital Signs Temp 97.4 F L 08/27/24 11:33 Pulse 100 H 08/27/24 11:33 Resp 18 08/27/24 11:33 BP 158/86 H 08/27/24 11:33 Pulse Ox 98 08/27/24 11:33 O2 Del Method Room Air 08/27/24 11:33 Course Vital Signs Vital signs: Vital Signs Temperature 97.4 F L 08/27/24 11:33 Pulse Rate 100 H 08/27/24 11:33 Respiratory Rate 18 08/27/24 11:33 Blood Pressure 158/86 H 08/27/24 11:33 Pulse Oximetry 98 08/27/24 11:33 Oxygen Delivery Method Room Air 08/27/24 11:33 Temperature 97.4 F L 08/27/24 11:33 Pulse Rate 100 H 08/27/24 11:33 Respiratory Rate 18 08/27/24 11:33 Blood Pressure 158/86 H 08/27/24 11:33 Pulse Oximetry 98 08/27/24 11:33 Oxygen Delivery Method Room Air 08/27/24 11:33 MDM - Extremity Injury (Lower) MDM Narrative Medical decision making narrative: The patient was ambulated in the ER after he was provided with Toradol CT of the pelvis showed no acute pathology Patient discharged home with Percocet for pain control The patient is to follow up with primary care physician in next 2-3 days or to return to the emergency department should any of the signs or symptoms worsen or new symptoms develop. The patient agrees with the following Diagnosis and Treatment plan and the patient will be discharged home. Discharge Plan Discharge Chief Complaint: Extremity Injury, Lower Clinical Impression: Contusion of hip Patient Disposition: Home, Self-Care Time of Disposition Decision: 15:16 Condition: Good Prescriptions / Home Meds: New oxycodone-acetaminophen [Percocet] 5-325 mg tablet 1 tab PO Q8H PRN (Reason: pain) 3 Days Qty: 9 0RF No Action amantadine HCl 100 mg tablet 100 mg PO BID atorvastatin 40 mg tablet 40 mg PO DAILY carbidopa-levodopa 50-200 mg tablet extended release 1.5 tab PO BID selegiline HCl 5 mg tablet 5 mg PO BID carbidopa-levodopa 25-100 mg tablet 1 tab PO TID Print Language: Cook Islander Instructions: Contusion in Adults (ED), Fall Prevention (ED) Referrals: GAMAL REYES [Primary Care Provider] - 1 week Discharge Date/Time: 08/27/24 15:25
[2024-08-27] MEDS: KETOROLAC TROMETHAMINE 30 MG/ML VIAL 15 MG IVP (13:51)
== END 2024-08-27 15:25 | disposition home or self-care (01) ==
PROVIDERS: Emergency Provider Emergency Medicine; PCP Family Medicine
DX: S70.01XA Contusion of right hip, initial encounter (principal); W10.8XXA Fall (on) (from) other stairs and steps, initial encounter
CPT/HCPCS: 72192; 99285; J1885